=== PATIENT | female | born 1970 | race Caucasian/White ===

== ENCOUNTER 2025-01-31 22:58 | Emergency (ER) | payer OTHER, SELFPAY ==
[2025-01-31 22:59] VITALS: BP 126/71; PULSE 58; RESP 18; TEMP 36.3; O2SAT 99; BMI 26.2
--- NOTE | 2025-02-01 01:27 | EX.ED.DYSGE1 ---
HPI History of Present Illness Chief Complaint: Dizziness Informant: patient and spouse/S.O. Narrative Narrative: Patient is a 54-year-old female presenting with worsening vertigo, neck pain, and headache. Patient is accompanied by her who is supplementing history. - Reports vertigo and vision changes for 3 weeks. - Underwent Tracy maneuver yesterday by Dr. Nash, which provided temporary relief. - Experienced a migraine and emesis prior to the maneuver. - Symptoms worsened today after performing stretches with a lacrosse ball under her neck; now unable to ambulate without dizziness. - Describes current vertigo as more severe than previous episodes; associated with intense neck pain at the base of the skull. - Denies any known trauma or head injuries. - Reports bilateral ear discomfort and difficulty turning her head without inducing dizziness and fear of emesis. - Has been managing tight neck, trapezius, and shoulder muscles with heat, ice, and massages without relief. - attempted Tracy maneuver at home today without improvement (performed incorrectly after we discussed details). - Currently experiencing a headache; has a history of migraines. - Taking progesterone, magnesium, and L-theanine nightly. PFSH PFSH Medical History no medical history no medical history Home Medications ?Medication ?Instructions ?Recorded ?Last Taken ?Type diazepam 2 mg tablet (Valium) 2 mg PO TID PRN dizziness #10 tabs 02/01/25 Unknown Rx Allergy/AdvReac Type Severity Reaction Status Date / Time No Known Allergies Allergy Verified 01/31/25 22:59 Social History Smoking Status: Never smoker ROS ROS ED Constitutional Constitutional ED: Denies chills or fever(s) Eyes Eyes: Denies change in vision or diplopia ENT ENT ED: Reports ear pain bilateral and vertigo; Denies rhinorrhea, sore throat or tinnitus Cardiovascular Cardiovascular: Denies chest pain or palpitations Respiratory/Chest Respiratory/Chest: Denies cough or dyspnea Gastrointestinal Gastrointestinal: Reports nausea and vomiting; Denies abdominal pain or diarrhea Genitourinary Genitourinary ED: Denies dysuria or hematuria Musculoskeletal Musculoskeletal: Reports neck pain; Denies back pain Integumentary Denies abscess or rash Neurologic Neurologic: Reports abnormal gait, disequilibrium, headache(s) and vertigo; Denies abnormal speech, behavior changes, focal weakness, frequent falls, paresthesias or weakness Psychiatric Psychiatric: Denies anxiety or suicidal thoughts EXAM Physical Exam Const Vital Signs: 01/31/25 22:59 Temperature 97.4 F L Temperature Source Temporal Pulse Rate 58 L Respiratory Rate 18 Blood Pressure 126/71 H Blood Pressure Mean 89 Pulse Ox 99 Oxygen Delivery Method Room Air Positive well nourished and well developed General Appearance ED: well developed and NAD HEENT Reports TM's clear and moist mucous membranes normocephalic and atraumatic Tympanic Membrane ED: Yes TM's clear Eyes PERRL and EOMs intact bilaterally Eyes Narrative: No direction changing nystagmus. Negative skew test. Abnormal jolt test with brief catch-up saccade. Neck full ROM and supple Neck Narrative: Some tenderness throughout the bilateral posterior neck paraspinal musculature, including trapezius musculature, no tenderness in the sternocleidomastoid/carotid artery areas. No JVD. Resp normal respiratory effort and clear to auscultation bilaterally Cardio regular rate, regular rhythm and no murmurs GI non-tender and non-distended Auscultation: normoactive bowel sounds Palpation: soft Back/Spine no CVA tenderness General Back: other FROM Extremity normal to inspection General Extremety ED: Negative for edema, pulses abnormal or tenderness General Extremity: Negative for edema or pulses abnormal Neuro oriented x3, CN's II-XII intact bilaterally and no sensory deficits noted Neuro Narrative: Normal speech no aphasia or dysarthria. No dysmetria, normal [id number] and [id number] bilaterally. Sensorium / Orientation: awake and alert Motor Exam: strength 5/5 throughout Psych mental status grossly normal Skin no rashes or lesions noted and no wounds MDM MDM MDM Narrative Medical decision making narrative: Patient's HINTS exam as well as the history are consistent with a peripheral etiology of vertigo. She was interested in the Tracy maneuver. I offered her Zofran and oral Valium first, which were given. 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 By that time, she stated she felt much better with the medications and no longer wanted the maneuver. She preferred to leave with a prescription for Valium, which I was happy to provide. She is due to follow up with ENT after the weekend. We discussed the unlikelihood of a vascular event or stroke based on the history and exam. She does not have any neck pain or tenderness in the carotid areas, and her symptoms appear primarily posterior, which I believe are more related to her headache and history of migraines. Therefore, we discussed imaging and the reasons for it. I also offered her CT angiography of the head and neck to rule out a rare dissection, although I do not believe this is likely, as she experiences clear, severe reproduction of symptoms on the right side and no symptoms when the Tracy maneuver was performed on the left, according to the patient. She agrees with this assessment and declines the CT. She will follow up with otolaryngology as an outpatient. Discharge Plan Triage Chief Complaint: Dizziness ED Provider: Jose Juan Beltran Dx/Rx/DC Orders Clinical Impression: Benign paroxysmal positional vertigo of right ear Instructions: ED BPV Vertigo Prescriptions: New diazepam [Valium] 2 mg tablet 2 mg PO TID PRN (Reason: dizziness) Qty: 10 0RF Primary Care Provider: Lee Elaine Referrals: Dylan Nash MD [Med Staff - Active Staff, Ear Nose Throat (ENT)] - As soon as possible Print Language: Turkmen Disposition Disposition: Home, Self Care
[2025-02-01 01:32] VITALS: BP 99/57; PULSE 60; RESP 18; TEMP 36.4; O2SAT 98
== END 2025-02-01 01:43 | disposition home or self-care (01) ==
PROVIDERS: Emergency Provider Emergency Medicine; PCP Family Medicine; Visit Provider Emergency Medicine
DX: H81.11 Benign paroxysmal vertigo, right ear (principal)
CPT/HCPCS: 96374; 99282; A4216; J2405

== ENCOUNTER → 2025-02-18 | Outpatient (CLI) | payer OTHER, SELFPAY ==
--- OUTSIDE RECORDS SUMMARY | 2025-02-18 10:43 | XMS RPT_ITS | CCD ---
Author Organization [facility] Care Team Providers Care Tunnel Inspector Name Role Phone Maribel Jeffries Unavailable Unavailable Unavailable Maribel Jeffries DO Unavailable Unavailable Stephens DODaydayen Unavailable Unavailable Maribel Jeffries Unavailable Unavailable Maribel Jeffries DO Primary Care Provider Chele, Dr. Maribel Longoria Primary Care Unava ilable Stephens, Dr. Abiodun Jean Referring Unavail able Stephnes, Dr. Abiodun Jean Attending Unavail able Tiff, Ms. Larson Attending Unavailabl e Chele, Dr. Maribel Longoria Primary Care Unava ilshama Matthew, Ms. Larson Referring Unavailabl e Stephens DO, Abiodun N Unavailable PATRICK CONNELL DC Attending UnavailPATRICK Adame DC Primary Care UnavailPATRICK Adame DC Admitting UnavailMARIBEL Iyer Primary Care Unavailab le NASIVA POPEIHA Attending Unavailable Maribel Jeffries MD Primary Care Provider MARIBEL JEFFRIES Primary Care Unavailable MARIBEL JEFFRIES Primary Care Unavailable MARIBEL JEFFRIES Primary Care Unavailable STEPHENSABIODUN Referring Unavailable MARIBEL JEFFRIES Primary Care Unavailable Stephens DO, Abiodun Jacobs Primary Care Provider MARIBEL JEFFRIES Primary Care Unavailab rell NASSARANYARRICHARDA Referring Unavailable MARIBEL JEFFRIES Primary Care Unavailab le STEPHENSABIODUN Referring Unavailable STEPHENS, ABIODUN N Attending Unavailable MARIBEL JEFFRIES Primary Care Unavailable STEPHENS, ABIODUN N Attending Unavailable STEPHENS, ABIODUN N Primary Care Unavailable Devin SANTIAGO, Dr. Manzano Emergency Department Phys ician Chele SANTIAGO, Dr. Howard Primary Care Physician Maribel Jeffries Primary Care Unavailable Jose Juan Beltran Attending Unavailable Maribel Jeffries Primary Care Unavailable Dylan Nash Attending Unavailelfego e Dylan Nash Referring Unavailelfego giordano Medications Current Medications Medication Drug Class(es) Dates Sig (Normalized) Sig (Original) amoxicillin 875 mg / clavulanate 125 mg oral tablet (1 source) Penicillin-class Antibacterial Start: 05-02-2023 End: 05-12-2023 take 1 tablet by mouth twice daily amoxicillin-pot clavulanate (Augmentin) 875-125 mg tablet Indications: Acute non-recurrent frontal sinusitis Take 1 tablet (875 mg) by mouth 2 times a day for 10 days. 20 tablet 0 05/02/2023 05/12/2023 Active budesonide 3 mg delayed release oral capsule (3 sources) Corticosteroid Start: 10-30-2023 budesonide, enteric coated (ENTOCORT EC) 3 mg 24 hr capsule TAKE 3 CAPSULES BY MOUTH ONCE DAILY FOR 6 WEEKS THEN 2 CAPSULES ONCE DAILY FOR 2 WEEKS THEN 1 CAPSULE ONCE DAILY FOR 2 WEEKS THEN STOP. 10/30/2023 Active ciprofloxacin 500 mg oral tablet (11 sources) Quinolone Antimicrobial Start: 03-17-2024 End: 03-24-2024 take 1 tablet by mouth twice daily ciprofloxacin (Cipro) 500 mg tablet Indications: Acute UTI Take 1 tablet (500 mg) by mouth 2 times a day for 7 days. 14 tablet 03/17/2024 03/24/2024 Active Start: 12-04-2020 take 1 tablet by venancio twice daily Ciprofloxacin HCl - 500 MG Oral Tablet Take 1 tablet twice daily Quantity: 14 Refills: 0 Ordered: 17-Feb-2021 Castro Cummings MD Start : 04-Dec-2020 Active diazePAM 2 mg oral tablet (1 source) Benzodiazepine Start: 02-01-2025 take 1 tablet by mouth three times daily as needed for dizziness fluticasone propionate 0.05 mg/actuat metered dose nasal spray (3 sources) Corticosteroid Start: 05-24-2023 End: 08-16-2023 fluticasone (Flonase) 50 mcg/actuation nasal spray Indications: Acute non-recurrent frontal sinusitis PLEASE SEE ATTACHED FOR DETAILED DIRECTIONS 48 mL 3 05/24/2023 08/16/2023 Discontinued (Therapy completed) Start: 05-02-2023 take 2 spray(s) nasa l route once daily fluticasone (Flonase) 50 mcg/actuation nasal spray Indications: Acute non-recurrent frontal sinusitis Administer 2 sprays into each nostril once daily. Shake gently. Before first use, prime pump. After use, clean tip and replace cap. 16 g 1 05/02/2023 Active multivitamin with iron (MULT IVITAMINS WITH IRON ORAL) (3 sources) multivitamin wit h iron (MULTIVITAMINS WITH IRON ORAL) Active Completed/Discontinued Medications Medication Drug Class(es) Dates Sig (Normalized) Sig (Original) [id number] 200 actuat albuterol 0.09 mg/actuat metered dose inhaler (1 source) beta2-Adrenergic Agonist Start: 03-20-2019 take 2 puff(s) by inhalation every six hours ProAir HFA 108 (90 Base) MCG/ACT Inhalation Aerosol Solution USE 2 PUFFS EVERY 6 HOURS DIRECTED. Quantity: 1 Refills: 3 Maribel Jeffries DO Start : 20-Mar-2019 Active 8.5 GM Inhaler amoxicillin 875 mg oral tablet (1 source) Penicillin-class Antibacterial Start: 03-18-2019 take 1 tablet by mouth every twelve hours Amoxicillin 875 MG Oral Tablet TAKE 1 TABLET BY MOUTH EVERY 12 HOURS Quantity: 20 Refills: 0 Abiodun Stephens DO Start : 18-Mar-2019 Active azithromycin 250 mg oral tablet (1 source) Macrolide Antimicrobial Start: 03-13-2019 Azithromycin 250 MG Oral Tablet TAKE 2 TABLETS ON DAY 1 THEN TAKE 1 TABLET A DAY FOR 4 DAYS. Quantity: 1 Refills: 0 Abiodun Stephens DO Start : 13-Mar-2019 Active 6 Tablet Pack fluconazole 150 mg oral tablet (1 source) Azole Antifungal Start: 03-13-2019 Fluconazole 150 MG Oral Tablet TAKE 1 TABLET EVERY 3 DAYS WHILE ON ANTIBIOTICS Quantity: 4 Refills: 0 Abiodun Stephens DO Start : 13-Mar-2019 Active Problems Active Problems Problem Classification Problem Date Documented Da te Episodic/Chronic Conditions associated with dizziness or vertigo (3 sources) Benign paroxysmal positional vertigo; Translations: [Benign paroxysmal vertigo, right ear] Onset: 10-13-2025 10-05-2025 Episodic Disorders of lipid metabolism (8 sources) Hyperlipidemia; Translations: [Hyperlipidemia, unspecified] Onset: 08-16-2023 08-16-2023 Chronic Malaise and fatigue (2 sources) Other fatigue; Translations: [Other fatigue] Onset: 06-30-2024 Episodic Noninfectious gastroenteritis (3 sources) Collagenous colitis; Translations: [Collagenous colitis] Onset: 01-28-2024 01-29-2024 Chronic Other liver diseases (1 source) Elevated liver enzymes level; Translations: [Abnormal levels of other serum enzymes] 10-03-2022 Episodic Other liver diseases (4 sources) Abnormal levels of other serum enzymes; Translations: [Abnormal levels of other serum enzymes] Onset: 11-28-2022 Episodic Other screening for suspected conditions (not mental disorders or infectious disease) (20 sources) Patient encounter status; Translations: [Other specified vaccination] Onset: 08-18-2022 08-18-2022 Episodic Other screening for suspected conditions (not mental disorders or infectious disease) (20 sources) Mammography abnormal; Translations: [Abnormal mammogram, unspecified] Onset: 08-17-2022 08-17-2022 Episodic Other upper respiratory disease (19 sources) Allergic rhinitis; Translations: [Allergic rhinitis, cause unspecified] Onset: 08-17-2022 08-17-2022 Chronic Other upper respiratory disease (2 sources) Allergic rhinitis, unspecified; Translations: [Allergic rhinitis, unspecified] Onset: 08-17-2022 Chronic Residual codes; unclassified (7 sources) Menopause present; Translations: [Asymptomatic menopausal state] Onset: 08-16-2023 08-16-2023 Episodic Unclassified (1 source) Patient encounter status 06-30-2024 Past or Other Problems Problem Classification Problem Date Documented Da te Episodic/Chronic Abdominal pain (18 sources) Left lower quadrant pain; Translations: [Abdominal pain, left lower quadrant] Onset: 08-17-2022 Resolved: 08-18-2022 08-18-2022 Episodic Acute bronchitis (18 sources) Acute bronchitis; Translations: [Acute bronchitis] Onset: 08-17-2022 Resolved: 08-18-2022 08-18-2022 Episodic Calculus of urinary tract (11 sources) Kidney stone; Translations: [Calculus of kidney] Onset: 02-24-2021 08-18-2022 Episodic Genitourinary symptoms and ill-defined conditions (20 sources) Dysuria; Translations: [Dysuria] Onset: 08-17-2022 Resolved: 06-30-2024 08-17-2022 Episodic Mycoses (18 sources) Candidiasis of skin; Translations: [Candidiasis of skin and nails] Onset: 08-17-2022 Resolved: 08-18-2022 08-18-2022 Episodic Nonmalignant breast conditions (20 sources) Breast lump; Translations: [Lump or mass in breast] Onset: 08-17-2022 Resolved: 08-16-2023 08-18-2022 Episodic Other gastrointestinal disorders (7 sources) Diarrhea; Translations: [Diarrhea, unspecified] Onset: 06-04-2023 Resolved: 06-30-2024 06-04-2023 Episodic Other gastrointestinal disorders (2 sources) Diarrhea, unspecified; Translations: [Diarrhea, unspecified] Onset: 06-04-2023 Episodic Other injuries and conditions due to external causes (18 sources) Tampon in vagina; Translations: [Foreign body in vulva and vagina] Onset: 08-17-2022 Resolved: 08-18-2022 08-18-2022 Episodic Other lower respiratory disease (10 sources) H/O: respiratory disease; Translations: [Personal history of other diseases of respiratory system] Resolved: 10-10-2018 Episodic Comment on above: Added by Problem Barbara yaya Migration; 2013-01-19; Moved to [facility] Mar 26 2013 9:20PM; Other nervous system disorders (9 sources) Personal history of other diseases of the nervous system and sense organs; Translations: [History of conjunctivitis] Resolved: 10-10-2018 Episodic Other nervous system disorders (1 source) H/O: eye disorder; Translations: [Personal history of other disorders of nervous system and sense organs] Episodic Other upper respiratory infections (17 sources) Acute maxillary sinusitis; Translations: [Acute maxillary sinusitis] Onset: 05-02-2023 Resolved: 08-16-2023 05-02-2023 Episodic Residual codes; unclassified (10 sources) History of clinical finding in subject; Translations: [Personal history of other specified diseases] Resolved: 10-10-2018 Episodic Residual codes; unclassified (1 source) Family history of malignant neoplasm of breast; Translations: [Family history of malignant neoplasm of breast] Onset: 09-07-2022 Episodic Residual codes; unclassified (5 sources) Insomnia; Translations: [Insomnia, unspecified] Onset: 08-16-2023 08-16-2023 Episodic Residual codes; unclassified (4 sources) Asymptomatic menopausal state; Translations: [Asymptomatic menopausal state] Onset: 08-16-2023 Episodic Unclassified (6 sources) Onset: 05-02-2023 Resolved: 06-30-2024 05-02-2023 Urinary tract infections (20 sources) Cystitis; Translations: [Cystitis, unspecified] Onset: 08-17-2022 Resolved: 08-18-2022 08-18-2022 Episodic NEGATED: Highlighted row has not occurred!Residual codes; unclassified (7 sources) Disease Episodic Results Test Name Value Interpretation Reference Range Facility Emergency Department Summary on 02-01-2025 Emergency Department Summary [facility] Medical Records Department [address] [place] [id number] Emergency Department Summary 02/01/25 MR#: [id number] Acct: [id number] Name: ALBINO MARCH Rep #: [id number] : 1970 54 From: Jose Juan Beltran MD PCP: Dr. Maribel Jeffries MD Status:[facility] ER Location: ED [facility] History of Present Illness Chief Complaint: Dizziness Informant: patient and spouse/S.O. Narrative Narrative: Patient is a 54-year-old female presenting with worsening vertigo, neck pain, and headache. Patient is accompanied by her who is supplementing history. - Reports vertigo and vision changes for 3 weeks. - Underwent Tracy maneuver yesterday by Dr. Nash, which provided temporary relief. - Experienced a migraine and emesis prior to the maneuver. - Symptoms worsened today after performing stretches with a lacrosse ball under her neck; now unable to ambulate without dizziness. - Describes current vertigo as more severe than previous episodes; associated with intense neck pain at the base of the skull. - Denies any known trauma or head injuries. - Reports bilateral ear discomfort and difficulty turning her head without inducing dizziness and fear of emesis. - Has been managing tight neck, trapezius, and shoulder muscles with heat, ice, and massages without relief. - attempted Tracy maneuver at home today without improvement (performed incorrectly after we discussed details). - Currently experiencing a headache; has a history of migraines. - Taking progesterone, magnesium, and L-theanine nightly. PFSH PFSH Medical History no medical history no medical history Home Medications ???Medication ???Instructions ???Recorded ???Last Taken ???Type diazepam 2 mg tablet (Valium) 2 mg PO TID PRN dizziness #10 tabs 02/01/25 Unknown Rx Allergy/AdvReac Type Severity Reaction Status Date / Time No Known Allergies Allergy Verified 01/31/25 22:59 Social History Smoking Status: Never smoker ROS ROS ED Constitutional Constitutional ED: Denies chills or fever(s) Eyes Eyes: Denies change in vision or diplopia ENT ENT ED: Reports ear pain bilateral and vertigo; Denies rhinorrhea, sore throat or tinnitus Cardiovascular Cardiovascular: Denies chest pain or palpitations Respiratory/Chest Respiratory/Chest: Denies cough or dyspnea Gastrointestinal Gastrointestinal: Reports nausea and vomiting; Denies abdominal pain or diarrhea Genitourinary Genitourinary ED: Denies dysuria or hematuria Musculoskeletal Musculoskeletal: Reports neck pain; Denies back pain Integumentary Denies abscess or rash Neurologic Neurologic: Reports abnormal gait, disequilibrium, headache(s) and vertigo; Denies abnormal speech, behavior changes, focal weakness, frequent falls, paresthesias or weakness Psychiatric Psychiatric: Denies anxiety or suicidal thoughts EXAM Physical Exam Const Vital Signs: 01/31/25 22:59 Temperature 97.4 F L Temperature Source Temporal Pulse Rate 58 L Respiratory Rate 18 Blood Pressure 126/71 H Blood Pressure Mean 89 Pulse Ox 99 Oxygen Delivery Method Room Air Positive well nourished and well developed General Appearance ED: well developed and NAD HEENT Reports TM's clear and moist mucous membranes normocephalic and atraumatic Tympanic Membrane ED: Yes TM's clear Eyes PERRL and EOMs intact bilaterally Eyes Narrative: No direction changing nystagmus. Negative skew test. Abnormal jolt test with brief catch-up saccade. Neck full ROM and supple Neck Narrative: Some tenderness throughout the bilateral posterior neck paraspinal musculature, including trapezius musculature, no tenderness in the sternocleidomastoid/carot id artery areas. No JVD. Resp normal respiratory effort and clear to auscultation bilaterally Cardio regular rate, regular rhythm and no murmurs GI non-tender and non-distended Auscultation: normoactive bowel sounds Palpation: soft Back/Spine no CVA tenderness General Back: other FROM Extremity normal to inspection General Extremety ED: Negative for edema, pulses abnormal or tenderness General Extremity: Negative for edema or pulses abnormal Neuro oriented x3, CN's II-XII intact bilaterally and no sensory deficits noted Neuro Narrative: Normal speech no aphasia or dysarthria. No dysmetria, normal vyffqh-lm-keve and vujx-lm-ywxy bilaterally. Sensorium / Orientation: awake and alert Motor Exam: strength 5/5 throughout Psych mental status grossly normal Skin no rashes or lesions noted and no wounds MDM MDM MDM Narrative Medical decision making narrative: Patient's HINTS exam as well as the history are consistent with a peripheral etiology of vertigo. She was interested in the Tracy maneuver. I (more content not included)... Normal [facility] CBC (INCLUDES DIFF/PLT)on Basophils (Bld) [#/Vol] 0.042 10*3/uL Normal 0-200 [facility] Comment on above: Performed By: #### 7 600, 6399, 91046, 67579, 15753 #### [facility] [place] [address] [employer]er: Emerson Aguilar MD Basophils/100 WBC (Bld) 1.0 % Normal [facility] Comment on above: Performed By: #### 7 600, 6399, 76418, 61127, 97501 #### [facility] [address], [address] [place] [address] [employer]: Emerson Aguilar MD Eosinophils (Bld) [#/Vol] 0.101 10*3/uL Normal 15-500 [facility] Comment on above: Performed By: #### 7 600, 6399, 37210, 18680, 00981 #### [facility] [address], [address] [place] [address] [employer]: Emerson Aguilar MD Eosinophils/100 WBC (Bld) 2.4 % Normal [facility] Comment on above: Performed By: #### 7 600, 6399, 55901, 77167, #### [facility] of [place] [address] [employer]: Emerson Aguilar MD Erythrocyte distribution width (RBC) [Ratio] 11.8 % Normal 11.0-15.0 [facility] Comment on above: Performed By: #### 7 600, 6399, 59267, 81987, #### [facility] of [address], [address] [place] [address] [employer]: Emerson Aguilar MD Hematocrit (Bld) [Volume fraction] 42.6 % Normal 35.0-45.0 [facility] Comment on above: Performed By: #### 7 600, 6399, 77012, 90239, #### [facility] [place] [address] [employer]: Emerson Aguilar MD Hemoglobin (Bld) [Mass/Vol] 13.8 g/dL Normal 11.7-15.5 [facility] Comment on above: Performed By: #### 7 600, 6399, 05203, 71493, #### [facility] [place] [address] [employer]: Emerson Aguilar MD Lymphocytes (Bld) [#/Vol] 1.487 10*3/uL Normal 850-3900 [facility] Comment on above: Performed By: #### 7 600, 6399, 76772, 44225, #### [facility] [place] [address] [employer]: Emerson Aguilar MD Lymphocytes/100 WBC (Bld) 35.4 % Normal [facility] Comment on above: Performed By: #### 7 600, 6399, 89090, 24631, 52408 #### [facility] [place] [address] [employer]: Emerson Aguilar MD MCH (RBC) [Entitic mass] 30.6 pg Normal 27.0-33.0 [facility] Comment on above: Performed By: #### 7 600, 63, 31880, 33470, #### [facility] [place] [address] [employer]: Emerson Aguilar MD MCHC (RBC) [Mass/Vol] 32.4 g/dL Normal 32.0-36.0 [facility] Comment on above: Result Comment: For adults, a slight decrease in the calculated MCHC value (in the range of 30 to 32 g/dL) is most likely not clinically significant; however, it should be interpreted with caution in correlation with other red cell parameters and the patient's clinical condition. Performed By: #### 7 600, 63, 10836, , #### [facility] [place] [address] [employer]: Emerson Aguilar MD MCV (RBC) [Entitic vol] 94.5 fL Normal 80.0-100.0 [facility] Comment on above: Performed By: #### 7 600, 63, 50694, , #### [facility] [place] [address] [employer]: Emerson Aguilar MD Monocytes (Bld) [#/Vol] 0.382 10*3/uL Normal 200-950 [facility] Comment on above: Performed By: #### 7 600, 63, 96860, , #### [facility] of [place] [address] [employer]: Emerson Aguilar MD Monocytes/100 WBC (Bld) 9.1 % Normal [facility] Comment on above: Performed By: #### 7 600, 63, 86264, 55523, #### [facility] [place] [address] [employer]: Emerson Aguilar MD Neutrophils (Bld) [#/Vol] 2.188 10*3/uL Normal 4106-9254 [facility] Comment on above: Performed By: #### 7 600, 6399, 02234, 24411, 65325 #### [facility] [place] [address] [employer]: Emerson Aguilar MD Neutrophils/100 WBC (Bld) 52.1 % Normal [facility] Comment on above: Performed By: #### 7 600, 6399, 84625, 98652, 84183 #### [facility] of [address], [address] [place] [address] [employer]: Emerson Aguilar MD Platelet mean volume (Bld) [Entitic vol] 10.9 fL Normal 7.5-12.5 [facility] Comment on above: Performed By: #### 7 600, 6399, 60376, 89630, 15293 #### [facility] [place] [address] [employer]: Emerson Aguilar MD Platelets (Bld) [#/Vol] 246 10*3/uL Normal 140-400 [facility] Comment on above: Performed By: #### 7 600, 6399, 50048, 76377, 45100 #### [facility] [place] [address] [employer]: Emerson Aguilar MD RBC (Bld) [#/Vol] 4.51 10*6/uL Normal 3.80-5.10 [facility] Comment on above: Performed By: #### 7 600, 6399, 52508, 58324, 24332 #### [facility] of [address], [address] [place], [place] [id number] [employer]: Emerson Aguilar MD WBC (Bld) [#/Vol] 4.2 10*3/uL Normal 3.8-10.8 [facility] Comment on above: Performed By: #### 7 600, 6399, 39197, 37452, 69068 #### [facility] of [place] [id number] [employer]: Emerson Aguilar MD COMPREHENSIVE METABOLIC PANE L W/ANION GAPon 08-13-2024 Albumin [Mass/Vol] 4.5 g/dL Normal 3.6-5.1 [facility] Comment on above: Performed By: #### 7 600, 6399, 36837, 14114, 19027 #### [facility] of [place] [address] [employer]: Emerson Aguilar MD ALP [Catalytic activity/Vol] 43 U/L Normal 37-153 [facility] Comment on above: Performed By: #### 7 600, 6399, 88880, 79247, 94330 #### [facility] [place] [address] [employer]: Emerson Aguilar MD ALT [Catalytic activity/Vol] 20 U/L Normal 6-29 [facility] Comment on above: Performed By: #### 7 600, 6399, 09614, 11160, #### [facility] [place] [address] [employer]: Emerson Aguilar MD AST [Catalytic activity/Vol] 23 U/L Normal 10-35 [facility] Comment on above: Performed By: #### 7 600, 6399, 16887, 89805, 52767 #### [facility] [place] [address] [employer]: Emerson Aguilar MD Bilirubin [Mass/Vol] 0.7 mg/dL Normal 0.2-1.2 [facility] Comment on above: Performed By: #### 7 600, 6399, 05164, 47309, 40632 #### [facility] [place] [address] [employer]: Emerson Aguilar MD Calcium [Mass/Vol] 9.3 mg/dL Normal 8.6-10.4 [facility] Comment on above: Performed By: #### 7 600, 6399, 22889, 39283, 96902 #### [facility] [place] [address] [employer]: Emerson Aguilar MD Chloride [Moles/Vol] 105 mmol/L Normal 98-110 [facility] Comment on above: Performed By: #### 7 600, 6399, 13488, 69271, 27299 #### [facility] [place] [address] [employer]: Emerson Aguilar MD CO2 [Moles/Vol] 27 mmol/L Normal 20-32 [facility] Comment on above: Performed By: #### 7 600, 6399, 16611, 79517, 35404 #### [facility] [place] [address] [employer]: Emerson Aguilar MD Creatinine [Mass/Vol] 0.55 mg/dL Normal 0.50-1.03 [facility] Comment on above: Performed By: #### 7 600, 6399, 17868, 74218, 94404 #### [facility] [place] [address] [employer]: Emerson Aguilar MD ELECTROLYTE BALANCE 7 mmol/L (calc) Normal 7-17 [facility] Comment on above: Performed By: #### 7 600, 6399, 39516, 72756, 17367 #### [facility] [place] [address] [employer]: Emerson Aguilar MD GFR/1.73 sq M.predicted among non-blacks MDRD (S/P/Bld) [Vol rate/Area] 110 mL/min/{1.73_m2} Normal > OR = 60 [facility] Comment on above: Performed By: #### 7 600, 6399, 47468, 87976, 27427 #### [facility] [place] [address] [employer]: Emerson Aguilar MD Glucose [Mass/Vol] 84 mg/dL Normal 65-99 [facility] Comment on above: Result Comment: Fasting reference interval Performed By: #### 7 600, 6399, 71419, 20928, #### [facility] [place] [address] [employer]: Emerson Aguilar MD Potassium [Moles/Vol] 4.1 mmol/L Normal 3.5-5.3 [facility] Comment on above: Performed By: #### 7 600, 6399, 81196, 01171, #### [facility] [place] [address] [employer]: Emerson Aguilar MD Protein [Mass/Vol] 6.8 g/dL Normal 6.1-8.1 [facility] Comment on above: Performed By: #### 7 600, 6399, 99235, 74415, 32904 #### [facility] [place] [address] [employer]: Emerson Aguilar MD Sodium [Moles/Vol] 139 mmol/L Normal 135-146 [facility] Comment on above: Performed By: #### 7 600, 6399, 81621, 99121, #### [facility] [place] [address] [employer]: Emerson Aguilar MD Urea nitrogen [Mass/Vol] 18 mg/dL Normal 7-25 [facility] Comment on above: Performed By: #### 7 600, 6399, 73855, 20233, #### [facility] [place] [address] [employer]: Emerson Aguilar MD LIPID PANEL, [facility] 07-29 Cholesterol [Mass/Vol] 218 mg/dL High <200 [facility] Comment on above: Order Comment: FASTI NG:YES FASTING: YES Performed By: #### 7 600, 6399, 94271, 75298, 27322 #### [facility] [facility] [address] [employer]: Emerson Aguilar MD Cholesterol in HDL [Mass/Vol] 95 mg/dL Normal > OR = 50 [facility] Comment on above: Order Comment: FASTI NG:YES FASTING: YES Performed By: #### 7 600, 6399, 97844, 98330, 41291 #### [facility] [address], [address] [place] [address] [employer]: Emerson Aguilar MD Cholesterol in LDL [Mass/Vol] 112 mg/dL High [facility] Comment on above: Order Comment: FASTI NG:YES FASTING: YES Result Comment: Refe rence range: <100 Desirable range <100 mg/dL for primary prevention; <70 mg/dL for patients with CHD or diabetic patients with > or = 2 CHD risk factors. LDL-C is now calculated using the Gladys calculation, which is a validated novel method providing better accuracy than the Friedewald equation in the estimation of LDL-C. Isidoro MCGEE et al. TUSHAR. 2013;310(19): 5842-7969 (http://education.[employer]/faq/KUK610) Performed By: #### 7 600, 6399, 75665, 44212, 77471 #### [facility] [address], [address] [place] [address] [employer]: Emerson Aguilar MD Cholesterol.total/ Cholesterol in HDL [Mass ratio] 2.3 {ratio} Normal <5.0 [facility] Comment on above: Order Comment: FASTI NG:YES FASTING: YES Performed By: #### 7 600, 6399, 64117, 36834, 08648 #### [facility] [address], [address] [place] [address] [employer]: Emerson Aguilar MD NON HDL CHOLESTEROL 123 mg/dL (calc) Normal <130 [facility] Comment on above: Order Comment: FASTI NG:YES FASTING: YES Result Comment: For patients with diabetes plus 1 major ASCVD risk factor, treating to a non-HDL-C goal of <100 mg/dL (LDL-C of <70 mg/dL) is considered a therapeutic option. Performed By: #### 7 600, 6399, 16000, 24936, 08604 #### [facility] [address], [address] [place] [address] [employer]: Emerson Aguilar MD Triglyceride [Mass/Vol] 38 mg/dL Normal <150 [facility] Comment on above: Order Comment: FASTI NG:YES FASTING: YES Performed By: #### 7 600, 6399, 04262, 91462, 38008 #### [facility] [address], [address] [place], [place] [address] [employer]: Emerson Aguilar MD TSH W/REFLEX TO FT4on 2024 TSH W/REFLEX TO FT4 1.56 mIU/L Normal [facility] Comment on above: Result Comment: Refe rence Range > or = 20 Years 0.40-4.50 Ranges First trimester 0.26-2.66 Second trimester 0.55-2.73 Third trimester 0.43-2.91 Performed By: #### 7 600, 6399, 93249, 84090, 73956 #### [facility] [address], [address] [place] [address] [employer]: Emerson Aguilar MD VITAMIN D,25-OH,TOTAL,IAon 0 08-13-2024 VITAMIN D,25-OH,TOTAL,IA 71 ng/mL Normal 30-100 [facility] Comment on above: Result Comment: Izzy min D Status 25-OH Vitamin D: Deficiency: <20 ng/mL Insufficiency: 20 - 29 ng/mL Optimal: > or = 30 ng/mL For 25-OH Vitamin D testing on patients on D2-supplementation and patients for whom quantitation of D2 and D3 fractions is required, the QuestAssureD(TM) 25-OH VIT D, (D2,D3), LC/MS/MS is recommended: order code 84839 (patients >2yrs). See Note 1 Note 1 For additional information, please refer to http://education.[employer]/faq/CID928 (This link is being provided for informational/ educational purposes only.) Performed By: #### 7 600, 6399, 25684, 31268, 36570 #### [facility] [address], [address] [place], [place] [id number] [employer]: Emerson Aguilar MD MALLIKA SCREENING W TOMOon 08-05 MALLIKA SCREENING W [place] * * *Final Report* * * DATE OF EXAM: Aug 05 2024 10:32AM AWW [id number] - MALLIKA SCREENING W [place] / PROCEDURE REASON: screening * * * * Physician Interpretation * * * * [facility] [address] [place] [address] [place] [address] #[phone] - MALLIKA SCREENING W [place] HISTORY: 54 year-old patient seen for screening. Patient is asymptomatic in both breasts. Patient states no personal history of breast cancer. The patient has a family history of breast cancer. COMPARISON STUDIES: The present examination has been compared to prior imaging studies dated 11/07/2018 (mammogram), 11/07/2018 (ultrasound), 11/08/2018 (mammogram), 09/07/2022 (ultrasound) and 09/07/2022 (mammogram). MAMMOGRAM TECHNIQUE: The study was acquired using full field digital technology and interpreted from soft copy. Digital Breast Tomosynthesis (DBT) images were obtained and used to assist in the interpretation of this examination. MAMMOGRAM FINDINGS: The breasts are extremely dense, which lowers the sensitivity of mammography. No suspicious masses, calcifications or other abnormalities are seen in either breast. There are no significant interval changes. IMPRESSION: There is no mammographic evidence of malignancy in either breast. Routine screening mammogram is recommended. Annual mammogram will be due in 1 year. BI-RADS Category 1: Negative RISK: Based on the Tyrer-Cuzick (TC) risk assessment model, this patient has a 13.7% lifetime risk of developing breast cancer, meaning they are at average risk for developing breast cancer. However, this is only an estimate based on available history provided on the patient's questionnaire. We encourage all patients to talk with their providers about these results, further recommendations for managing breast health, and appropriate supplemental screening options if the patient has dense breast tissue. Interpreting Radiologist: Marva Martinez M.D. Electronically signed on: 08/06/2024 Pan [place]: [place] Transcribe Date/Time: Aug 05 2024 10:30A Dictated by : MARVA MARTINEZ MD This examination was interpreted and the report reviewed and electronically signed by: MARVA MARTINEZ MD on Aug 06 2024 9:01PM EST [id number] Normal [facility] Bacteria identifiedon 2023 Bacteria identified Cx Nom (U) Test: Urine Culture Specimen Source: Clean Catch/Voided Specimen Type: Urine Specimen Date: 03/17/2024 1039 Result Date: 03/19/2024 0759 Result Status: Final result Abnormal: No Resulting Lab: [facility] [id number] [place] [address] CULTURE No growth Normal [facility] Comment on above: Performed By: #### 6 30-4 #### SARA Osborne ([id number]) [facility] ([facility]) [address] [place] [address] CT ABDOMEN PELVIS WO IV CONT [facility] 03-17-2024 CT ABDOMEN PELVIS WO IV CONTRAST Interpreted By: Ciro Marin, STUDY: CT ABDOMEN PELVIS WO IV CONTRAST; 03/17/2024 11:12 am INDICATION: Signs/Symptoms:hematuria, history of kidney stones. COMPARISON: 02/23/2021 ACCESSION NUMBER(S): [id number] ORDERING CLINICIAN: ABIODUN STEPHENS TECHNIQUE: CT of the abdomen and pelvis was performed. Contiguous axial images were obtained at 3 mm slice thickness through the abdomen and pelvis. Coronal and sagittal reconstructions at 3 mm slice thickness were performed. Intravenous or oral contrast was not administered. FINDINGS: LOWER CHEST: The visualized lung bases are unremarkable. ABDOMEN: LIVER: The hepatic parenchyma is homogeneous without evidence of focal liver lesions.The hepatic size is normal. SPLEEN: The spleen is normal in size and homogeneous. ADRENAL GLANDS: Bilateral adrenal glands appear normal. KIDNEYS AND URETERS: The renal cortices are unremarkable and the renal sizes within normal limits. There is a punctate nonobstructing right intrarenal calculus at the midpole, similar to the previous exam. There is a punctate radiodensity at the left pelvis best seen on image 115 of series 201. As there is not left pelvocaliectasis this is probably due to development of a phlebolith. However as this was not evident previously, and as the ureters are not well identified due to a paucity of intra-abdominal fat and overlying bowel loops, the possibility of a a nonobstructing or early distal left ureteral calculus is not excluded. If differentiation or further evaluation is needed a CT urogram retrograde pyelography would be recommended. No identified right urinary tract dilatation or other radiodense calculi. PANCREAS: The pancreas appears unremarkable, there is no ductal dilatation or masses. GALLBLADDER: Decompressed, otherwise grossly unremarkable without wall thickening, pericholecystic fluid or radiodense calculi. BILE DUCTS: There is no biliary dilatation or filling defects. VESSELS: The aorta and IVC are within normal limits. PERITONEUM AND RETROPERITONEUM: No ascites or free air, no fluid collection. The retroperitoneum appears unremarkable, and without significant adenopathy. No enlarged mesenteric lymph nodes. BOWEL: The bowel is unremarkable, without significant dilatation or mucosal edema. PELVIS: BLADDER: The urinary bladder contour is smooth. REPRODUCTIVE ORGANS: No pelvic masses. BONE, ABDOMINAL WALL AND OTHER FINDINGS: No suspicious osseous lesions are identified. The abdominal wall soft tissues appear normal. IMPRESSION: 1. Punctate nonobstructing right intrarenal calculus, similar to the prior exam. 2. Interval development of a punctate calcification at the left pelvis, probably a phlebolith. However, given limitations a distal early or nonobstructing left ureteral calculus is not excluded. MACRO: 1. None Signed by: Ciro Marin 03/17/2024 11:44 AM Dictation workstation: [id number] [facility] CT Abdomen WO contraston 1. Punctate nonobstructing right intrarenal calculus, similar to the prior exam. 2. Interval development of a punctate calcification at the left pelvis, probably a phlebolith. However, given limitations a distal early or nonobstructing left ureteral calculus is not excluded. MACRO: 1. None Signed by: Ciro Marin 03/17/2024 11:44 AM Dictation workstation: [id number] [facility] Interpreted By: Ciro Bhatti, STUDY: CT ABDOMEN PELVIS WO IV CONTRAST; 03/17/2024 11:12 am INDICATION: Signs/Symptoms:hematuria, history of kidney stones. COMPARISON: 02/23/2021 ACCESSION NUMBER(S): [id number] ORDERING CLINICIAN: ABIODUN STEPHENS TECHNIQUE: CT of the abdomen and pelvis was performed. Contiguous axial images were obtained at 3 mm slice thickness through the abdomen and pelvis. Coronal and sagittal reconstructions at 3 mm slice thickness were performed. Intravenous or oral contrast was not administered. FINDINGS: LOWER CHEST: The visualized lung bases are unremarkable. ABDOMEN: LIVER: The hepatic parenchyma is homogeneous without evidence of focal liver lesions.The hepatic size is normal. SPLEEN: The spleen is normal in size and homogeneous. ADRENAL GLANDS: Bilateral adrenal glands appear normal. KIDNEYS AND URETERS: The renal cortices are unremarkable and the renal sizes within normal limits. There is a punctate nonobstructing right intrarenal calculus at the midpole, similar to the previous exam. There is a punctate radiodensity at the left pelvis best seen on image 115 of series 201. As there is not left pelvocaliectasis this is probably due to development of a phlebolith. However as this was not evident previously, and as the ureters are not well identified due to a paucity of intra-abdominal fat and overlying bowel loops, the possibility of a a nonobstructing or early distal left ureteral calculus is not excluded. If differentiation or further evaluation is needed a CT urogram retrograde pyelography would be recommended. No identified right urinary tract dilatation or other radiodense calculi. PANCREAS: The pancreas appears unremarkable, there is no ductal dilatation or masses. GALLBLADDER: Decompressed, otherwise grossly unremarkable without wall thickening, pericholecystic fluid or radiodense calculi. BILE DUCTS: There is no biliary dilatation or filling defects. VESSELS: The aorta and IVC are within normal limits. PERITONEUM AND RETROPERITONEUM: No ascites or free air, no fluid collection. The retroperitoneum appears unremarkable, and without significant adenopathy. No enlarged mesenteric lymph nodes. BOWEL: The bowel is unremarkable, without significant dilatation or mucosal edema. PELVIS: BLADDER: The urinary bladder contour is smooth. REPRODUCTIVE ORGANS: No pelvic masses. BONE, ABDOMINAL WALL AND OTHER FINDINGS: No suspicious osseous lesions are identified. The abdominal wall soft tissues appear normal. [facility] Ciro Marin MD - 03/17/2024 Interpreted By: Ciro Marin, STUDY: CT ABDOMEN PELVIS WO IV CONTRAST; 03/17/2024 11:12 am INDICATION: Signs/Symptoms:hematuria, history of kidney stones. COMPARISON: 02/23/2021 ACCESSION NUMBER(S): [id number] ORDERING CLINICIAN: ABIODUN STEPHENS TECHNIQUE: CT of the abdomen and pelvis was performed. Contiguous axial images were obtained at 3 mm slice thickness through the abdomen and pelvis. Coronal and sagittal reconstructions at 3 mm slice thickness were performed. Intravenous or oral contrast was not administered. FINDINGS: LOWER CHEST: The visualized lung bases are unremarkable. ABDOMEN: LIVER: The hepatic parenchyma is homogeneous without evidence of focal liver lesions.The hepatic size is normal. SPLEEN: The spleen is normal in size and homogeneous. ADRENAL GLANDS: Bilateral adrenal glands appear normal. KIDNEYS AND URETERS: The renal cortices are unremarkable and the renal sizes within normal limits. There is a punctate nonobstructing right intrarenal calculus at the midpole, similar to the previous exam. There is a punctate radiodensity at the left pelvis best seen on image 115 of series 201. As there is not left pelvocaliectasis this is probably due to development of a phlebolith. However as this was not evident previously, and as the ureters are not well identified due to a paucity of intra-abdominal fat and overlying bowel loops, the possibility of a a nonobstructing or early distal left ureteral calculus is not excluded. If differentiation or further evaluation is needed a CT urogram retrograde pyelography would be recommended. No identified right urinary tract dilatation or other radiodense calculi. PANCREAS: The pancreas appears unremarkable, there is no ductal dilatation or masses. GALLBLADDER: Decompressed, otherwise grossly unremarkable without wall thickening, pericholecystic fluid or radiodense calculi. BILE DUCTS: There is no biliary dilatation or filling defects. VESSELS: The aorta and IVC are within normal limits. PERITONEUM AND RETROPERITONEUM: No ascites or free air, no fluid collection. The retroperitoneum appears unremarkable, and without significant adenopathy. No enlarged mesenteric lymph nodes. BOWEL: The bowel is unremarkable, without significant dilatation or mucosal edema. PELVIS: BLADDER: The urinary bladder contour is smooth. REPRODUCTIVE ORGANS: No pelvic masses. BONE, ABDOMINAL WALL AND OTHER FINDINGS: No suspicious osseous lesions are identified. The abdominal wall soft tissues appear normal. IMPRESSION: 1. Punctate nonobstructing right intrarenal calculus, similar to the prior exam. 2. Interval development of a punctate calcification at the left pelvis, probably a phlebolith. However, given limitations a distal early or nonobstructing left ureteral calculus is not excluded. MACRO: 1. None Signed by: Ciro Marin 03/17/2024 11:44 AM Dictation workstation: [id number] [facility] Work Phone: Radiology Study observation (narrative) [facility] Work Phone: CT Abdomen WO contrastOrdere d By: Ciro Marin on 03-17-2024 [facility] Work Phone: Follitropinon 03-17-2024 Follitropin Qn 103.9 IU/L Normal [facility] Comment on above: Result Comment: FSH Ref Values Follicular 2.0-12.0 IU/L Mid-Cycle 12.0-25.0 IU/L Luteal Phase 2.0-12.0 IU/L Menopause 30.0-150.0 IU/L Pre-puberty 50% Adult IU/L Adult Male 2.0-10.0 IU/L Infants 0.0-1.0 IU/L Performed By: #### 2 4323-8 #### SARA Osborne ([id number]) [facility] ([facility]) [address] [place] [address] Lutropinon 03-17-2024 Lutropin Qn 53.5 IU/L [facility] Comment on above: Result Comment: LH R eference Values Follicular Phase 1.9-12.5 IU/L Mid-Cycle 8.7-76.3 IU/L Luteal Phase 0.5-16.9 IU/L Post Menopause 5.0-55.2 IU/L Children 0- 6.0 IU/L Adult Male 18-70 years 1.5- 9.3 IU/L Adult Male >70 years 3.1-34.6 IU/L Performed By: #### 2 4323-8 #### SARA Osborne ([id number]) [facility] ([facility]) [address] [place] [address] POCT UA Automated manually r esultedon 03-17-2024 Glucose Test strip (U) [Mass/Vol] Negative NEGATIVE mg/dl [facility] Work Phone: Comment on above: 3 rbc/hpf urine cult ure sent Hemoglobin Ql (U) TRACE-Intact Abnormal NEGATIVE [facility] Work Phone: Interpretation and review of laboratory results Abnormal [facility] Work Phone: Leukocyte esterase Test strip Ql (U) Negative NEGATIVE [facility] Work Phone: [phone] Nitrite Ql (U) Negative NEGATIVE [facility] Work Phone: [phone] pH (U) 7.0 [pH] No Reference Range Established [facility] Work Phone: [phone] POC Bilirubin, Urine Negative NEGATIVE [facility] Work Phone: [phone] POC Ketones, Urine Negative NEGATIVE mg/dl [facility] Work Phone: POC Protein, Urine Negative NEGATIVE, 30 (1+) mg/dl [facility] Work Phone: [phone] POC Specific [place], Urine 1.020 1.005 - 1.035 [facility] Work Phone: POC Urobilinogen, Urine 0.2 0.2, 1.0 EU/DL [facility] Work Phone: [facility] Work Phone: No Panel Informationon 01-31 [facility] C. difficile toxin genes DEYVI +probe Ql (Stl)on 01-29-2024 Interpretation and review of laboratory results Normal [facility] Calprotectin (Stl) [Mass/Mas s]on 01-29-2024 CALPROTECTIN, FECAL INTERP Normal Normal [facility] Comment on above: Interpretation: <50.0 ug/g: Normal 50.0 ug/g - 120.0 ug/g: Borderline elevated. Re-evaluation in 4-6 weeks is recommended if clinically indicated. >120.0 ug/g: Elevated CALPROTECTIN, FECAL QUANTITATIVE 45.0 ug/g NINF - 50 ug/g [facility] Interpretation and review of laboratory results Normal [facility] G. lamblia+Cryptosporidium s p Ag IA Ql (Stl)Ordered By: Antonio Gonsalez on 01-29-2024 Cryptosporidium sp Ag Ql (Stl) Negative Negative [facility] G. lamblia Ag Ql (Stl) Negative Negative [facility] Interpretation and review of laboratory results Normal [facility] A single negative te st result does not rule out a parasitic infection. Due to intermittent shedding of parasites, it is recommended that three specimens collected over a 7 day period are submitted to improve detection sensitivity. [facility] Gastrointestinal pathogens i dentified DEYVI+probe Nom (Stl)Ordered By: Cary Cote on 01-29-2024 Campylobacter sp DNA DEYVI+probe Nom (Unsp spec) Not detected Not Detected [facility] Interpretation and review of laboratory results Normal [facility] Salmonella sp DNA DEYVI+probe Ql (Unsp spec) Not detected Not Detected [facility] Shiga toxin stx gene DEYVI+probe Nom (Unsp spec) Not detected Not Detected [facility] Shigella sp DNA DEYVI+probe Ql (Unsp spec) Not detected Not Detected [facility] Laboratory - Microbiology an d Antimicrobial susceptibilityon 01-29-2024 C. difficile toxin genes DEYVI+probe Ql (Stl) Negative Negative for C. difficile toxin by PCR [facility] 25(OH)D3 SerPl-mCncon 2023 25-hydroxyvitamin D3 [Mass/Vol] 63.7 ng/mL Normal >=30.0 [facility] Comment on above: Order Comment: Pepito ontiveros Type: BLOOD SPECIMEN Ordering Facility: [facility] Address: [address] [place] [address] Result Comment: Clas sification of 25 [place] Vitamin D status: Deficiency: <= 20.0 ng/ml. Insufficiency: 21.0-29.0 ng/ml. Sufficiency: >= 30.0 ng/ml. Performed By: #### 1 989-3 #### [facility] CLIA [id number] [address] [place] [address] [place] 25-hydroxyvitamin D3 [Mass/V ol]on 01-28-2024 Interpretation and review of laboratory results Normal [facility] C diff Tox gens Stl Ql DEYVI+p robeon 01-28-2024 C. difficile toxin genes DEYVI+probe Ql (Stl) Negative Normal Negative for C. difficile toxin by PCR [facility] Comment on above: Order Comment: Speci men Type: STOOL SPECIMEN Ordering Facility: [facility] Address: [address] [place] [address] Performed By: #### 5 4067-4, 90479-7, 43230-6 #### [facility] CLIA [id number] [address] [place] [address] [place] [address] [place] CBC W Auto Differential pane l (Bld)on 01-28-2024 Basophils (Bld) [#/Vol] 0.07 10*3/uL [facility] Basophils/100 WBC (Bld) 0.8 % [facility] Differential cell count method Nom (Bld) Auto [facility] Eosinophils (Bld) [#/Vol] 0.16 10*3/uL [facility] Eosinophils/100 WBC (Bld) 1.8 % [facility] Erythrocyte distribution width (RBC) [Ratio] 13.0 % 11.5 - 15.0 % [facility] Hematocrit (Bld) [Volume fraction] 42.4 % 36.0 - 46.0 % [facility] Hemoglobin (Bld) [Mass/Vol] 13.4 g/dL 11.5 - 15.5 g/dL [facility] Immature granulocytes (Bld) [#/Vol] BANNERF [facility] Immature granulocytes/100 WBC (Bld) 0.2 % [facility] Lymphocytes (Bld) [#/Vol] 1.57 10*3/uL [facility] Lymphocytes/100 WBC (Bld) 17.7 % [facility] MCH (RBC) [Entitic mass] 30.8 pg 26.0 - 34.[address] [facility] MCHC (RBC) [Mass/Vol] 31.6 g/dL 30.5 - 36.0 g/dL [facility] MCV (RBC) [Entitic vol] 97.5 fL 80.0 - 100.[address] [facility] Monocytes (Bld) [#/Vol] 0.74 10*3/uL [facility] Monocytes/100 WBC (Bld) 8.3 % [facility] Neutrophils (Bld) [#/Vol] 6.33 10*3/uL [facility] Neutrophils/100 WBC (Bld) 71.2 % [facility] Nucleated RBC (Bld) [#/Vol] NINF [facility] Nucleated RBC/100 WBC (Bld) [Ratio] 0.0 % /[address] [facility] Platelet mean volume (Bld) [Entitic vol] 10.7 fL 9.0 - 12.[address] [facility] Platelets (Bld) [#/Vol] 298 10*3/uL [facility] RBC (Bld) [#/Vol] 4.35 10*6/uL 3.90 - 5.2 0 m/uL [facility] WBC (Bld) [#/Vol] 8.89 10*3/uL [facility] Basophils (Bld) [#/Vol] 0.07 10*3/uL Normal <0.11 [facility] Comment on above: Order Comment: Speci men Type: BLOOD SPECIMEN Ordering Facility: [facility] Address: [address] [place] [address] Performed By: #### 5 7021-8 #### [facility] CLIA [id number] [address] [place] Basophils/100 WBC (Bld) 0.8 % Normal [facility] Comment on above: Order Comment: Speci men Type: BLOOD SPECIMEN Ordering Facility: [facility] Address: [address] [place] [address] Performed By: #### 5 7021-8 #### [facility] CLIA [id number] 1 [place] [address] [place] Differential cell count method Nom (Bld) Auto Normal [facility] Comment on above: Order Comment: Speci men Type: BLOOD SPECIMEN Ordering Facility: [facility] Address: [address] [place] [address] Performed By: #### 5 7021-8 #### [facility] CLIA [id number] [address] [place] [address] [place] Eosinophils (Bld) [#/Vol] 0.16 10*3/uL Normal <0.46 [facility] Comment on above: Order Comment: Speci men Type: BLOOD SPECIMEN Ordering Facility: [facility] Address: [address] [place] [address] Performed By: #### 5 7021-8 #### [facility] CLIA [id number] [address] Eosinophils/100 WBC (Bld) 1.8 % Normal [facility] Comment on above: Order Comment: Speci men Type: BLOOD SPECIMEN Ordering Facility: [facility] Address: [address] [place] [address] Performed By: #### 5 7021-8 #### [facility] CLIA [id number] [address] [place] Erythrocyte distribution width (RBC) [Ratio] 13.0 % Normal 11.5-15.0 [facility] Comment on above: Order Comment: Speci men Type: BLOOD SPECIMEN Ordering Facility: [facility] Address: [address] [place] [address] Performed By: #### 5 7021-8 #### [facility] CLIA [id number] [address] [place] Hematocrit (Bld) [Volume fraction] 42.4 % Normal 36.0-46.0 [facility] Comment on above: Order Comment: Speci men Type: BLOOD SPECIMEN Ordering Facility: [facility] Address: [address] [place] [address] Performed By: #### 5 7021-8 #### [facility] CLIA [id number] [address] [place] Hemoglobin (Bld) [Mass/Vol] 13.4 g/dL Normal 11.5-15.5 [facility] Comment on above: Order Comment: Speci men Type: BLOOD SPECIMEN Ordering Facility: [facility] Address: [address] [place] [address] Performed By: #### 5 7021-8 #### [facility] CLIA [id number] [address] [place] Immature granulocytes (Bld) [#/Vol] 10*3/uL Normal <0.10 [facility] Comment on above: Order Comment: Speci men Type: BLOOD SPECIMEN Ordering Facility: [facility] Address: [address] [place] [address] Performed By: #### 5 7021-8 #### [facility] CLIA [id number] [address] Immature granulocytes/100 WBC (Bld) 0.2 % Normal [facility] Comment on above: Order Comment: Speci men Type: BLOOD SPECIMEN Ordering Facility: [facility] Address: [address] [place] [address] Performed By: #### 5 7021-8 #### [facility] CLIA [id number] [address] [place] Lymphocytes (Bld) [#/Vol] 1.57 10*3/uL Normal 1.00-4.00 [facility] Comment on above: Order Comment: Speci men Type: BLOOD SPECIMEN Ordering Facility: [facility] Address: [address] [place] [address] Performed By: #### 5 7021-8 #### [facility] CLIA [id number] [address] Lymphocytes/100 WBC (Bld) 17.7 % Normal [facility] Comment on above: Order Comment: Speci men Type: BLOOD SPECIMEN Ordering Facility: [facility] Address: [address] [place] [address] Performed By: #### 5 7021-8 #### [facility] CLIA [id number] [address] MCH (RBC) [Entitic mass] 30.8 pg Normal 26.0-34.0 [facility] Comment on above: Order Comment: Speci men Type: BLOOD SPECIMEN Ordering Facility: [facility] Address: [address] [place] [address] Performed By: #### 5 7021-8 #### [facility] CLIA [id number] [address] [place] MCHC (RBC) [Mass/Vol] 31.6 g/dL Normal 30.5-36.0 [facility] Comment on above: Order Comment: Speci men Type: BLOOD SPECIMEN Ordering Facility: [facility] Address: [address] [place] [address] Performed By: #### 5 7021-8 #### [facility] CLIA [id number] [address] MCV (RBC) [Entitic vol] 97.5 fL Normal 80.0-100.0 [facility] Comment on above: Order Comment: Speci men Type: BLOOD SPECIMEN Ordering Facility: [facility] Address: [address] [place] [address] Performed By: #### 5 7021-8 #### [facility] CLIA [id number] [address] [place] Monocytes (Bld) [#/Vol] 0.74 10*3/uL Normal <0.87 [facility] Comment on above: Order Comment: Speci men Type: BLOOD SPECIMEN Ordering Facility: [facility] Address: [address] [place] [address] Performed By: #### 5 7021-8 #### [facility] CLIA [id number] [address] Monocytes/100 WBC (Bld) 8.3 % Normal [facility] Comment on above: Order Comment: Speci men Type: BLOOD SPECIMEN Ordering Facility: [facility] Address: [address] [place] [address] Performed By: #### 5 7021-8 #### [facility] CLIA [id number] [address] [place] Neutrophils (Bld) [#/Vol] 6.33 10*3/uL Normal 1.45-7.50 [facility] Comment on above: Order Comment: Speci men Type: BLOOD SPECIMEN Ordering Facility: [facility] Address: [address] [place] [address] Performed By: #### 5 7021-8 #### [facility] CLIA [id number] [address] [place] Neutrophils/100 WBC (Bld) 71.2 % Normal [facility] Comment on above: Order Comment: Speci men Type: BLOOD SPECIMEN Ordering Facility: [facility] Address: [address] [place] [address] Performed By: #### 5 7021-8 #### [facility] CLIA [id number] [address] [place] Nucleated RBC (Bld) [#/Vol] 10*3/uL Normal <0.01 [facility] Comment on above: Order Comment: Speci men Type: BLOOD SPECIMEN Ordering Facility: [facility] Address: [address] [place] [address] Performed By: #### 5 7021-8 #### [facility] CLIA [id number] [address] [place] Nucleated RBC/100 WBC (Bld) [Ratio] 0.0 /100 WBC Normal [facility] Comment on above: Order Comment: Speci men Type: BLOOD SPECIMEN Ordering Facility: [facility] Address: [address] [place] [address] Performed By: #### 5 7021-8 #### [facility] CLIA [id number] [address] [place] Platelet mean volume (Bld) [Entitic vol] 10.7 fL Normal 9.0-12.7 [facility] Comment on above: Order Comment: Speci men Type: BLOOD SPECIMEN Ordering Facility: [facility] Address: [address] [place] [address] Performed By: #### 5 7021-8 #### [facility] CLIA [id number] [address] [place] Platelets (Bld) [#/Vol] 298 10*3/uL Normal 150-400 [facility] Comment on above: Order Comment: Speci men Type: BLOOD SPECIMEN Ordering Facility: [facility] Address: [facility] [place] [address] Performed By: #### 5 7021-8 #### [facility] CLIA [id number] [address] [place] RBC (Bld) [#/Vol] 4.35 10*6/uL Normal 3.90-5.20 [facility] Comment on above: Order Comment: Speci men Type: BLOOD SPECIMEN Ordering Facility: [facility] Address: [address] [place] [address] Performed By: #### 5 7021-8 #### [facility] CLIA [id number] [address] OF [facility] WBC (Bld) [#/Vol] 8.89 10*3/uL Normal 3.70-11.00 [facility] Comment on above: Order Comment: Speci men Type: BLOOD SPECIMEN Ordering Facility: [facility] Address: [address] [place] [address] Performed By: #### 5 7021-8 #### [facility] CLIA [id number] [address] [place] CELIAC SCREENon 01-28-2024 GLIAD DEAMIDATED IGA QUAL Negative Normal Negative, Test not Indicated [facility] Comment on above: Order Comment: Speci men Type: BLOOD SPECIMEN Ordering Facility: [facility] Address: [address] [place] [address] Performed By: #### L [id number] #### [facility] CLIA [id number] [address] [place] [address] [place] Gliadin peptide IgA Qn (S) 2 Units Normal <20 [facility] Comment on above: Order Comment: Speci men Type: BLOOD SPECIMEN Ordering Facility: [facility] Address: [address] [place] [address] Performed By: #### L [id number] #### [facility] CLIA [id number] [address] [place] [address] [place] INTERPRETATION No serological evide nce of celiac disease, however, if celiac disease is clinically suspected and patient is not on gluten-free diet, histological diagnosis may be considered. HLA testing may help with risk assessment. Normal [facility] Comment on above: Order Comment: Speci men Type: BLOOD SPECIMEN Ordering Facility: [facility] Address: [address] [place] [address] Performed By: #### L [id number] #### [facility] CLIA [id number] [address] [place] [address] [place] TRANSGLUTAMINASE IGA ABS INTERPRETATION Negative Normal Negative [facility] Comment on above: Order Comment: Speci men Type: BLOOD SPECIMEN Ordering Facility: [facility] Address: [address] [place] [address] Result Comment: The following results were obtained with [employer] Simplere R h-tTG IgA VICTOR HUGO.???R h-tTG IgA values obtained with different manufacturers' assay methods may not be used interchangeably. The magnitude of the reported IgA levels cannot be corelated to an endpoint???concentration. This is used as an aid in diagnosis of celiac disease. Clinical correlation is required. Performed By: #### L [id number] #### [facility] CLIA [id number] [address] [place] [address] [place] tTG IgA Qn (S) <2 Normal <4 [facility] Comment on above: Order Comment: Speci men Type: BLOOD SPECIMEN Ordering Facility: [facility] Address: [address] [place] [address] Performed By: #### L [id number] #### [facility] CLIA [id number] [address] [place] [address] [place] CRP SerPl-mCncon 01-28-2024 CRP [Mass/Vol] mg/L Normal <0.9 [facility] Comment on above: Order Comment: Speci [facility] Type: BLOOD SPECIMEN Ordering Facility: [facility] Address: [address] [place] [address] Performed By: #### 2 4323-8, 1987-5, 29617-3, 3034-6 #### [facility] CLIA [id number] 1 [place] [address] [place] Calprotectin (Stl) [Mass/Mas s]on 01-28-2024 CALPROTECTIN, FECAL INTERP Normal Normal Normal [facility] Comment on above: Order Comment: Speci men Type: STOOL SPECIMEN Ordering Facility: [facility] Address: [address] [place] [address] Result Comment: Inte rpretation: <50.0 ug/g: Normal 50.0 ug/g - 120.0 ug/g: Borderline elevated. Re-evaluation in 4-6 weeks is recommended if clinically indicated. >120.0 ug/g: Elevated Performed By: #### 5 4067-4, 73671-3, 09411-1 #### [facility] CLIA [id number] [address] [place] [address] [place] CALPROTECTIN, FECAL QUANTITATIVE 45.0 ug/g Normal <50 [facility] Comment on above: Order Comment: Speci men Type: STOOL SPECIMEN Ordering Facility: [facility] Address: [address] [place] [address] Performed By: #### 5 4067-4, 08672-1, 52172-3 #### [facility] CLIA [id number] [address] [place] [address] [place] Cobalamin (Vitamin B12) [Mas s/Vol]on 01-28-2024 Interpretation and review of laboratory results Normal [facility] Comprehensive metabolic 2000 panelon 01-28-2024 Albumin [Mass/Vol] 4.1 g/dL 3.9 - 4.9 g/dL [facility] ALP [Catalytic activity/Vol] 66 U/L 34 - 123 U/L [facility] ALT With P-5'-P [Catalytic activity/Vol] 25 U/L 7 - 38 U/L [facility] Anion gap [Moles/Vol] 9 mmol/L 8 - 15 mmol/L [facility] AST With P-5'-P [Catalytic activity/Vol] 20 U/L 13 - 35 U/L [facility] Bilirubin [Mass/Vol] 0.3 mg/dL 0.2 - 1.3 mg/dL [facility] Calcium [Mass/Vol] 8.7 mg/dL 8.5 - 10. 2 mg/dL [facility] Chloride [Moles/Vol] 104 mmol/L 98 - 107 mmol/L [facility] CO2 [Moles/Vol] 26 mmol/L 22 - 30 mmol/L [facility] Creatinine [Mass/Vol] 0.65 mg/dL 0.58 - 0.96 mg/dL [facility] GFR/1.73 sq M.predicted among non-blacks MDRD (S/P/Bld) [Vol rate/Area] 106 mL/min/{1.73_m2} - PINF [facility] Comment on above: Estimated Glomerular Filtration Rate (eGFR) is calculated using the 2020 CKD-EPI creatinine equation. This equation utilizes serum creatinine, sex, and age as parameters. The creatinine assay has traceable calibration to isotope dilution-mass spectrometry. Refer to KDIGO guidelines for clinical interpretation. In patients with unstable renal function, e.g. those with acute kidney injury, the eGFR may not accurately reflect actual GFR. Glucose [Mass/Vol] 75 mg/dL 74 - 99 mg/dL [facility] Comment on above: The [place] Diabete s Association (ADA) provides guidance for cutoff values for fasting glucose and random glucose. The ADA defines fasting as no caloric intake for at least 8 hours. Fasting plasma glucose results between 100 to 125 mg/dL indicate increased risk for diabetes (prediabetes). Fasting plasma glucose results greater than or equal to 126 mg/dL meet the criteria for diagnosis of diabetes. In the absence of unequivocal hyperglycemia, results should be confirmed by repeat testing. In a patient with classic symptoms of hyperglycemia or hyperglycemic crisis, random plasma glucose results greater than or equal to 200 mg/dL meet the criteria for diagnosis of diabetes. Reference: Standards of Medical Care in Diabetes 2016, [place] Diabetes Association. Diabetes Care. 2016.39(Suppl 1). Potassium [Moles/Vol] 3.9 mmol/L 3.7 - 5.1 mmol/L [facility] Protein [Mass/Vol] 6.7 g/dL 6.3 - 8.0 g/dL [facility] Sodium [Moles/Vol] 139 mmol/L 136 - 144 mmol/L [facility] Urea nitrogen [Mass/Vol] 15 mg/dL 7 - 21 mg/dL [facility] Albumin [Mass/Vol] 4.1 g/dL Normal 3.9-4.9 [facility] Comment on above: Order Comment: Speci men Type: BLOOD SPECIMEN Ordering Facility: [facility] Address: [address] [place] [address] Performed By: #### 2 4322-8, 1987-08, , 3033-09 #### [facility] CLIA [id number] [address] ALP [Catalytic activity/Vol] 66 U/L Normal 34-123 [facility] Comment on above: Order Comment: Speci men Type: BLOOD SPECIMEN Ordering Facility: [facility] Address: [address] [place] [address] Performed By: #### 2 4328, 1987-08, , 3033-09 #### [facility] CLIA [id number] [address] STATES OF [facility] ALT With P-5'-P [Catalytic activity/Vol] 25 U/L Normal 7-38 [facility] Comment on above: Order Comment: Speci men Type: BLOOD SPECIMEN Ordering Facility: [facility] Address: [address] [place] [address] Performed By: #### 2 8, 1987-08, , 3033-09 #### [facility] CLIA [id number] [address] Anion gap [Moles/Vol] 9 mmol/L Normal 8-15 [facility] Comment on above: Order Comment: Speci men Type: BLOOD SPECIMEN Ordering Facility: [facility] Address: [address] [place] [address] Performed By: #### 2 4328, 1987-08, , 3033-09 #### [facility] CLIA [id number] [address] OF [facility] AST With P-5'-P [Catalytic activity/Vol] 20 U/L Normal 13-35 [facility] Comment on above: Order Comment: Speci men Type: BLOOD SPECIMEN Ordering Facility: [facility] Address: [address] [place] [address] Performed By: #### 2 4322-8, 1987-08, , 3033-09 #### [facility] CLIA [id number] 1 [place] [address] [place] Bilirubin [Mass/Vol] 0.3 mg/dL Normal 0.2-1.3 [facility] Comment on above: Order Comment: Speci men Type: BLOOD SPECIMEN Ordering Facility: [facility] Address: [address] [place] [address] Performed By: #### 2 4328, 1987-08, , 3033-09 #### [facility] CLIA [id number] 1 [place] [address] [place] Calcium [Mass/Vol] 8.7 mg/dL Normal 8.5-10.2 [facility] Comment on above: Order Comment: Speci men Type: BLOOD SPECIMEN Ordering Facility: [facility] Address: [address] [place] [address] Performed By: #### 2 8, 1987-08, , 3033-09 #### [facility] CLIA [id number] 1 [place] [address] [place] Chloride [Moles/Vol] 104 mmol/L Normal 98-107 [facility] Comment on above: Order Comment: Speci men Type: BLOOD SPECIMEN Ordering Facility: [facility] Address: [address] [place] [address] Performed By: #### 2 8, 1987-08, , 3033-09 #### [facility] CLIA [id number] 1 [place] [address] [place] CO2 [Moles/Vol] 26 mmol/L Normal 22-30 [facility] Comment on above: Order Comment: Speci men Type: BLOOD SPECIMEN Ordering Facility: [facility] Address: [address] [place] [address] Performed By: #### 2 4323-8, 1987-08, , 3033-09 #### [facility] CLIA [id number] [address] STATES OF [facility] Creatinine [Mass/Vol] 0.65 mg/dL Normal 0.58-0.96 [facility] Comment on above: Order Comment: Pepito ontiveros Type: BLOOD SPECIMEN Ordering Facility: [facility] Address: [address] [place] [address] Performed By: #### 2 4323-8, 1987-08, , 3033-09 #### [facility] CLIA [id number] [address] Creatinine and Glomerular filtration rate.predicted panel (S/P/Bld) 106 mL/min/1.73m??? Normal >=60 [facility] Comment on above: Order Comment: Pepito ontiveros Type: BLOOD SPECIMEN Ordering Facility: [facility] Address: [address] [place] [address] Result Comment: Ara mated Glomerular Filtration Rate (eGFR) is calculated using the 2020 CKD-EPI creatinine equation. This equation utilizes serum creatinine, sex, and age as parameters. The creatinine assay has traceable calibration to isotope dilution-mass spectrometry. Refer to KDIGO guidelines for clinical interpretation. In patients with unstable renal function, e.g. those with acute kidney injury, the eGFR may not accurately reflect actual GFR. Performed By: #### 2 432-8, 1987-08, , 3033-09 #### [facility] CLIA [id number] [address] [place] Glucose [Mass/Vol] 75 mg/dL Normal 74-99 [facility] Comment on above: Order Comment: Pepito ontiveros Type: BLOOD SPECIMEN Ordering Facility: [facility] Address: [address] [place] [address] Result Comment: The [place] Diabetes Association (ADA) provides guidance for cutoff values for fasting glucose and random glucose. The ADA defines fasting as no caloric intake for at least 8 hours. Fasting plasma glucose results between 100 to 125 mg/dL indicate increased risk for diabetes (prediabetes). Fasting plasma glucose results greater than or equal to 126 mg/dL meet the criteria for diagnosis of diabetes. In the absence of unequivocal hyperglycemia, results should be confirmed by repeat testing. In a patient with classic symptoms of hyperglycemia or hyperglycemic crisis, random plasma glucose results greater than or equal to 200 mg/dL meet the criteria for diagnosis of diabetes. Reference: Standards of Medical Care in Diabetes 2016, [place] [employer] Association. Diabetes Care. 2016.39(Suppl 1). Performed By: #### 2 8, 1987-08, , 3033-09 #### [facility] CLIA [id number] 1 [place] [address] [place] Potassium [Moles/Vol] 3.9 mmol/L Normal 3.7-5.1 [facility] Comment on above: Order Comment: Pepito ontiveros Type: BLOOD SPECIMEN Ordering Facility: [facility] Address: [address] [place] [address] Performed By: #### 2 4322-11, 1987-08, 77757-1, 3033-09 #### [facility] CLIA [id number] 1 [place] [address] [place] Protein [Mass/Vol] 6.7 g/dL Normal 6.3-8.0 [facility] Comment on above: Order Comment: Pepito ontiveros Type: BLOOD SPECIMEN Ordering Facility: [facility] Address: [address] [place] [address] Performed By: #### 2 4322-11, 1987-08, , 3033-09 #### [facility] CLIA [id number] 1 [place] [address] [place] Sodium [Moles/Vol] 139 mmol/L Normal 136-144 [facility] Comment on above: Order Comment: Aloki men Type: BLOOD SPECIMEN Ordering Facility: [facility] Address: [address] [place] [address] Performed By: #### 2 8, 1987-08, , 3033-09 #### [facility] CLIA [id number] [address] [place] [address] [place] Urea nitrogen [Mass/Vol] 15 mg/dL Normal 7-21 [facility] Comment on above: Order Comment: Speci men Type: BLOOD SPECIMEN Ordering Facility: [facility] Address: [address] [place] [address] Performed By: #### 2 4323-8, 1988-5, 49491-9, 3034-6 #### [facility] CLIA [id number] [address] [place] [address] [place] G lamblia+Cryptosp Ag Stl Ql IAon 01-28-2024 G. lamblia+Cryptospor idium sp Ag IA Ql (Stl) CRYPTOSPORIDIUM ANTIGEN BY EIA: Negative for Cryptosporidium by EIA. GIARDIA ANTIGEN BY EIA: Negative for Giardia lamblia by EIA. Normal [facility] Comment on above: Performed By: #### 5 4067-4, 44620-1, 50212-1 #### [facility] CLIA [id number] [address] [place] [address] [place] Gastrointestinal pathogens i dentified DEYVI+probe Nom (Stl)on 01-28-2024 Campylobacter sp DNA DEYVI+probe Nom (Unsp spec) Not detected Normal Not Detected [facility] Comment on above: Order Comment: Speci men Type: STOOL SPECIMEN Ordering Facility: [facility] Address: [address] [place] [address] Performed By: #### 7 9390-1 #### [facility] CLIA [id number] [address] [place] [address] [place] Salmonella sp DNA DEYVI+probe Ql (Unsp spec) Not detected Normal Not Detected [facility] Comment on above: Order Comment: Speci men Type: STOOL SPECIMEN Ordering Facility: [facility] Address: [address] [place] [address] Performed By: #### 7 9390-1 #### [facility] CLIA [id number] [address] [place] [address] [place] Shiga toxin stx gene DEYVI+probe Nom (Unsp spec) Not detected Normal Not Detected [facility] Comment on above: Order Comment: Speci men Type: STOOL SPECIMEN Ordering Facility: [facility] Address: [address] [place] [address] Performed By: #### 7 9390-1 #### [facility] CLIA [id number] [address] [place] [address] [place] Shigella sp DNA DEYVI+probe Ql (Unsp spec) Not detected Normal Not Detected [facility] Comment on above: Order Comment: Speci men Type: STOOL SPECIMEN Ordering Facility: [facility] Address: [address] [place] [address] Performed By: #### 7 9390-1 #### [facility] CLIA [id number] [address] [place] [address] [place] IgA SerPl-mCncon 01-28-2024 IgA [Mass/Vol] 85 mg/dL Normal 70-400 [facility] Comment on above: Order Comment: Speci men Type: BLOOD SPECIMEN Ordering Facility: [facility] Address: [address] [place] [address] Performed By: #### 2 458-8 #### [facility] CLIA [id number] [address] [place] [address] [place] Iron and Iron binding capaci ty panelon 01-28-2024 Iron [Mass/Vol] 82 ug/dL 41 - 186 ug/dL [facility] Iron binding capacity [Mass/Vol] 245 ug/dL 232 - 386 ug/dL [facility] Iron saturation [Mass fraction] 33.5 % 15.0 - 57.0 % [facility] Iron [Mass/Vol] 82 ug/dL Normal 41-186 [facility] Comment on above: Order Comment: Speci men Type: BLOOD SPECIMEN Ordering Facility: [facility] Address: [address] [place] [address] Performed By: #### 2 4323-8, 1987-5, 53603-4, 3034-6 #### [facility] CLIA [id number] [address] STATES OF [facility] Iron binding capacity [Mass/Vol] 245 ug/dL Normal 232-386 [facility] Comment on above: Order Comment: Speci men Type: BLOOD SPECIMEN Ordering Facility: [facility] Address: [address] [place] [address] Performed By: #### 2 4323-8, 1987-08, 08100-2, 3033-6 #### [facility] CLIA [id number] [address] [place] [id number] [facility] Iron saturation [Mass fraction] 33.5 % Normal 15.0-57.0 [facility] Comment on above: Order Comment: Speci men Type: BLOOD SPECIMEN Ordering Facility: [facility] Address: [address] [place] [address] Performed By: #### 2 4323-8, 1987-08, 75013-8, 3033-09 #### [facility] CLIA [id number] [address] OF [facility] Laboratory - Chemistry and C hemistry - challengeon 01-28-2024 Cobalamin (Vitamin B12) [Mass/Vol] 774 pg/mL 232 - 1245 pg/mL [facility] 25-hydroxyvitamin D3 [Mass/Vol] 63.7 ng/mL 30.0 - PINF ng/mL [facility] Comment on above: Classification of 25 [place] Vitamin D status: Deficiency: <= 20.0 ng/ml. Insufficiency: 21.0-29.0 ng/ml. Sufficiency: >= 30.0 ng/ml. CRP [Mass/Vol] mg/dL NINF - 0.9 mg/dL [facility] Transferrin [Mass/Vol] 202 mg/dL 200 - 360 mg/dL [facility] No Panel Informationon 01-27 Interpretation and review of laboratory results Normal [facility] Transferrin SerPl-mCncon Transferrin [Mass/Vol] 202 mg/dL Normal 200-360 [facility] Comment on above: Order Comment: Speci men Type: BLOOD SPECIMEN Ordering Facility: [facility] Address: [address] [place] [address] Performed By: #### 2 4323-8, 1987-5, 69632-3, 3034-6 #### [facility] CLIA [id number] [address] [place] Vit B12 SerPl-mCncon 024 Cobalamin (Vitamin B12) [Mass/Vol] 774 pg/mL Normal 232-1245 [facility] Comment on above: Order Comment: Speci men Type: BLOOD SPECIMEN Ordering Facility: [facility] Address: [address] [place] [address] Performed By: #### 2 132-9 #### [facility] CLIA [id number] [address] [place] CBC W Auto Differential pane l (Bld)on 08-10-2023 Basophils (Bld) [#/Vol] 0.05 x10*3/uL Normal 0.00-0.10 [facility] Comment on above: Performed By: #### 5 7021-8 #### SARA BUSTILLOMOTZRADHA L ([id number]) [facility] ([facility]) [id number] [place] [address] 85072 Basophils/100 WBC (Bld) 1.3 % Normal 0.0-2.0 [facility] Comment on above: Performed By: #### 5 7021-8 #### SARA SCHMOTZER L ([id number]) [facility] ([facility]) [address] [place] [address] 90631 Eosinophils (Bld) [#/Vol] 0.12 x10*3/uL Normal 0.00-0.70 [facility] Comment on above: Performed By: #### 5 7021-8 #### SARA BUSTILLOMOTZER L ([id number]) [facility] ([facility]) [address] [place] [address] 46869 Eosinophils/100 WBC (Bld) 3.0 % Normal 0.0-6.0 [facility] Comment on above: Performed By: #### 5 7021-8 #### SARA BUSTILLOMOTZER L ([id number]) [facility] ([facility]) [address] [place] [address] 77987 Erythrocyte distribution width (RBC) [Ratio] 12.5 % Normal 11.5-14.5 [facility] Comment on above: Performed By: #### 5 7021-8 #### SARA Osborne ([id number]) [facility] ([facility]) [address] [place] [address] 45170 Hematocrit (Bld) [Volume fraction] 42.9 % Normal 36.0-46.0 [facility] Comment on above: Performed By: #### 5 7021-8 #### SARA Osborne ([id number]) [facility] ([facility]) [address] [place] [address] 63604 Hemoglobin (Bld) [Mass/Vol] 13.4 g/dL Normal 12.0-16.0 [facility] Comment on above: Performed By: #### 5 7021-8 #### SARA Osborne ([id number]) [facility] ([facility]) [address] [place] [address] 97669 Immature granulocytes (Bld) [#/Vol] 0.01 x10*3/uL Normal 0.00-0.70 [facility] Comment on above: Performed By: #### 5 7021-8 #### SARA Osborne ([id number]) [facility] ([facility]) [address] [place] [address] 63406 Immature granulocytes/100 WBC (Bld) 0.3 % Normal 0.0-0.9 [facility] Comment on above: Result Comment: Kyra ture Granulocyte Count (IG) includes promyelocytes, myelocytes and metamyelocytes but does not include bands. Percent differential counts (%) should be interpreted in the context of the absolute cell counts (cells/UL). Performed By: #### 5 7021-8 #### SARA Osborne ([id number]) [facility] ([facility]) [address] [place] [address] 02327 Lymphocytes (Bld) [#/Vol] 1.45 x10*3/uL Normal 1.20-4.80 [facility] Comment on above: Performed By: #### 5 7021-8 #### SARA Osborne ([id number]) [facility] ([facility]) [address] [place] [address] 07929 Lymphocytes/100 WBC (Bld) 36.3 % Normal 13.0-44.0 [facility] Comment on above: Performed By: #### 5 7021-8 #### SARA Osborne ([id number]) [facility] ([facility]) [address] [place] [address] 25085 MCH (RBC) [Entitic mass] 30.6 pg Normal 26.0-34.0 [facility] Comment on above: Performed By: #### 5 7021-8 #### SARA Osborne ([id number]) [facility] ([facility]) [address] [place] [address] 92786 MCHC (RBC) [Mass/Vol] 31.2 g/dL Low 32.0-36.0 [facility] Comment on above: Performed By: #### 5 7021-8 #### SARA Osborne ([id number]) [facility] ([facility]) [address] [place] [address] 22761 MCV (RBC) [Entitic vol] 98 fL Normal 80-100 [facility] Comment on above: Performed By: #### 5 7021-8 #### SARA Osborne ([id number]) [facility] ([facility]) [address] [place] [address] 36995 Monocytes (Bld) [#/Vol] 0.42 x10*3/uL Normal 0.10-1.00 [facility] Comment on above: Performed By: #### 5 7021-8 #### SARA Osborne ([id number]) [facility] ([facility]) [address] [place] [address] 39054 Monocytes/100 WBC (Bld) 10.5 % Normal 2.0-10.0 [facility] Comment on above: Performed By: #### 5 7021-8 #### SARA Osborne ([id number]) [facility] ([facility]) [address] [place] [address] 92802 Neutrophils (Bld) [#/Vol] 1.94 x10*3/uL Normal 1.20-7.70 [facility] Comment on above: Result Comment: Perc ent differential counts (%) should be interpreted in the context of the absolute cell counts (cells/uL). Performed By: #### 5 7021-8 #### SARA PEREZ L ([id number]) [facility] ([facility]) [address] [place] [address] 12026 Neutrophils/100 WBC (Bld) 48.6 % Normal 40.0-80.0 [facility] Comment on above: Performed By: #### 5 7021-8 #### SARA Osborne ([id number]) [facility] ([facility]) [address] [place] [address] 85918 Nucleated RBC/100 WBC (Bld) [Ratio] 0.0 /100 WBCs Normal 0.0-0.0 [facility] Comment on above: Performed By: #### 5 7021-8 #### SARA PEREZ L ([id number]) [facility] ([facility]) [address] [place] [address] 87637 Platelets (Bld) [#/Vol] 225 x10*3/uL Normal 150-450 [facility] Comment on above: Performed By: #### 5 7021-8 #### SARA Osborne ([id number]) [facility] ([facility]) [address] [place] [address] 93084 RBC (Bld) [#/Vol] 4.38 x10*6/uL Normal 4.00-5.20 [facility] Comment on above: Performed By: #### 5 7021-8 #### SARA PEREZ L ([id number]) [facility] ([facility]) [address] [place] [address] 86849 WBC (Bld) [#/Vol] 4.0 x10*3/uL Low 4.4-11.3 [facility] Comment on above: Performed By: #### 5 7021-8 #### SARA Osbonre ([id number]) [facility] ([facility]) [address] [place] [address] 57774 Comprehensive metabolic 2000 panelon 08-10-2023 Albumin BCP dye [Mass/Vol] 4.3 g/dL Normal 3.4-5.0 [facility] Comment on above: Performed By: #### 2 4323-8 #### SARA Osborne ([id number]) [facility] ([facility]) [address] [place] [address] 96045 ALP [Catalytic activity/Vol] 48 U/L Normal 33-110 [facility] Comment on above: Performed By: #### 2 4323-8 #### SARA Osborne ([id number]) [facility] ([facility]) [address] [place] [address] 68278 ALT With P-5'-P [Catalytic activity/Vol] 37 U/L Normal 7-45 [facility] Comment on above: Result Comment: Yoselin ents treated with Sulfasalazine may generate falsely decreased results for ALT. Performed By: #### 2 4323-8 #### SARA Osborne ([id number]) [facility] ([facility]) [address] [place] [address] 27153 Anion gap [Moles/Vol] 11 mmol/L Normal 10-20 [facility] Comment on above: Performed By: #### 2 4323-8 #### SARA Osborne ([id number]) [facility] ([facility]) [address] [place] [address] 56314 AST With P-5'-P [Catalytic activity/Vol] 24 U/L Normal 9-39 [facility] Comment on above: Performed By: #### 2 4323-8 #### SARA Osborne ([id number]) [facility] ([facility]) [address] [place] [address] 00869 Bilirubin [Mass/Vol] 0.5 mg/dL Normal 0.0-1.2 [facility] Comment on above: Performed By: #### 2 4323-8 #### SARA Osborne ([id number]) [facility] ([facility]) [address] [place] [address] Calcium [Mass/Vol] 9.6 mg/dL Normal 8.6-10.6 [facility] Comment on above: Performed By: #### 2 4323-8 #### SARA PEREZ L ([id number]) [facility] ([facility]) [address] [place] [address] 01943 Chloride [Moles/Vol] 104 mmol/L Normal 98-107 [facility] Comment on above: Performed By: #### 2 4323-8 #### SARA PEREZ L ([id number]) [facility] ([facility]) [address] [place] [address] 92356 CO2 [Moles/Vol] 29 mmol/L Normal 21-32 [facility] Comment on above: Performed By: #### 2 4323-8 #### SARA PEREZ L ([id number]) [facility] ([facility]) [address] [place] [address] 57310 Creatinine [Mass/Vol] 0.30 mg/dL Low 0.50-1.05 [facility] Comment on above: Performed By: #### 2 4323-8 #### SARA PEREZ L ([id number]) [facility] ([facility]) [address] [place] [address] 65612 GFR/1.73 sq M.predicted MDRD (S/P/Bld) [Vol rate/Area] mL/min/{1.73_m2} Normal >60 [facility] Comment on above: Result Comment: Calc ulations of estimated GFR are performed using the 2020 CKD-EPI Study Refit equation without the race variable for the IDMS-Traceable creatinine methods. https://jasn.asnjournals.org/content/early//ASN.377367207 8 Performed By: #### 2 4323-8 #### SARA PEREZ L ([id number]) [facility] ([facility]) [address] [place] [address] 05012 Glucose [Mass/Vol] 78 mg/dL Normal 74-99 [facility] Comment on above: Performed By: #### 2 4323-8 #### SARA Osborne ([id number]) [facility] ([facility]) [address] [place] [address] 79750 Potassium [Moles/Vol] 4.2 mmol/L Normal 3.5-5.3 [facility] Comment on above: Performed By: #### 2 4323-8 #### SARA Osborne ([id number]) [facility] ([facility]) [address] [place] [address] 04900 Protein [Mass/Vol] 6.6 g/dL Normal 6.4-8.2 [facility] Comment on above: Performed By: #### 2 4323-8 #### SARA Osborne ([id number]) [facility] ([facility]) [address] [place] [address] 47443 Sodium [Moles/Vol] 140 mmol/L Normal 136-145 [facility] Comment on above: Performed By: #### 2 4323-8 #### SARA Osborne ([id number]) [facility] ([facility]) [address] [place] [address] 79164 Urea nitrogen [Mass/Vol] 24 mg/dL High 6-23 [facility] Comment on above: Performed By: #### 2 4323-8 #### SARA Osborne ([id number]) [facility] ([facility]) [address] [place] [address] 37429 Follitropin and Lutropin easley el Qnon 08-10-2023 Follitropin Qn 90.5 IU/L Normal [facility] Comment on above: Result Comment: FSH Ref Values Follicular 2.0-12.0 IU/L Mid-Cycle 12.0-25.0 IU/L Luteal Phase 2.0-12.0 IU/L Menopause 30.0-150.0 IU/L Pre-puberty 50% Adult IU/L Adult Male 2.0-10.0 IU/L Infants 0.0-1.0 IU/L Performed By: #### 3 4549-6 #### SARA Osborne ([id number]) [facility] ([facility]) [address] [place] [address] 88873 Lutropin Qn 68.8 IU/L Normal [facility] Comment on above: Result Comment: LH R eference Values Follicular Phase 1.9-12.5 IU/L Mid-Cycle 8.7-76.3 IU/L Luteal Phase 0.5-16.9 IU/L Post Menopause 5.0-55.2 IU/L Children 0- 6.0 IU/L Adult Male 18-70 years 1.5- 9.3 IU/L Adult Male >70 years 3.1-34.6 IU/L Performed By: #### 3 4549-6 #### SARA Osborne ([id number]) [facility] ([facility]) [address] [place] [address] 48487 Lipid 1996 panelon 4 Cholesterol [Mass/Vol] 218 mg/dL High 0-199 [facility] Comment on above: Result Comment: Age Desirable Borderline High High 0-19 Y 0 - 169 170 - 199 >/= 200 20-24 Y 0 - 189 190 - 224 >/= 225 >24 Y 0 - 199 200 - 239 >/= 240 All ranges are based on fasting samples. Specific therapeutic targets will vary based on patient-specific cardiac risk. Pediatric guidelines reference:Pediatrics 2011, 128(S5).Adult guidelines reference: NCEP ATPIII Guidelines,TUSHAR 2001, 258:2486-97 Venipuncture immediately after or during the administration of Metamizole may lead to falsely low results. Testing should be performed immediately prior to Metamizole dosing. Performed By: #### 2 4323-8 #### SARA Osborne ([id number]) [facility] ([facility]) [address] [place] [address] 34742 Cholesterol in HDL [Mass/Vol] 101.6 mg/dL Normal [facility] Comment on above: Result Comment: Age Very Low Low Normal High 0-19 Y < 35 < 40 40-45 ---- 20-24 Y ---- < 40 >45 ---- >24 Y ---- < 40 40-60 >60 Performed By: #### 2 4323-8 #### SARA Osborne ([id number]) [facility] ([facility]) [address] [place] [address] 51880 Cholesterol in LDL [Mass/Vol] 108 mg/dL High <=99 [facility] Comment on above: Result Comment: Near Borderline AGE Desirable Optimal High High Very High 0-19 Y 0 - 109 --- 110-129 >/= 130 ---- 20-24 Y 0 - 119 --- 120-159 >/= 160 ---- >24 Y 0 - 99 100-129 130-159 160-189 >/=190 Performed By: #### 2 4323-8 #### SARA Osborne ([id number]) [facility] ([facility]) [address] [place] [address] 06676 Cholesterol in VLDL [Mass/Vol] 8 mg/dL Normal 0-40 [facility] Comment on above: Performed By: #### 2 4323-8 #### SARA Osborne ([id number]) [facility] ([facility]) [address] [place] [address] 78756 CHOLESTEROL/HDL RATIO 2.1 Normal [facility] Comment on above: Result Comment: Ref Values Desirable < 3.4 High Risk > 5.0 Performed By: #### 2 4323-8 #### SARA Osborne ([id number]) [facility] ([facility]) [address] [place] [address] 20979 NON HDL CHOLESTEROL 116 mg/dL Normal 0-149 [facility] Comment on above: Result Comment: Age Desirable Borderline High High Very High 0-19 Y 0 - 119 120 - 144 >/= 145 >/= 160 20-24 Y 0 - 149 150 - 189 >/= 190 ---- >24 Y 30 mg/dL above LDL Cholesterol goal Performed By: #### 2 4323-8 #### SARA Osborne (31504) [facility] ([facility]) [address] [place] [address] Triglyceride [Mass/Vol] 41 mg/dL Normal 0-149 [facility] Comment on above: Result Comment: Age Desirable Borderline High High Very High 0 D-90 D 19 - 174 ---- ---- ---- 91 D- 9 Y 0 - 74 75 - 99 >/= 100 ---- 10-19 Y 0 - 89 90 - 129 >/= 130 ---- 20-24 Y 0 - 114 115 - 149 >/= 150 ---- >24 Y 0 - 149 150 - 199 200- 499 >/= 500 Venipuncture immediately after or during the administration of Metamizole may lead to falsely low results. Testing should be performed immediately prior to Metamizole dosing. Performed By: #### 2 4323-8 #### SARA Osborne ([id number]) [facility] ([facility]) [address] [place] [address] 99860 TSH WITH REFLEX TO FREE T4 I F ABNORMALon 08-10-2023 TSH Qn 2.01 m[IU]/L Normal 0.44-3.98 [facility] Comment on above: Order Comment: TSH t esting is performed using different testing methodology at [facility] than at other [facility]. Direct result comparisons should only be made within the same method. Performed By: #### T WILLIAM #### SARA Osborne ([id number]) [facility] ([facility]) [address] [place] [address] 86326 CBC W Auto Differential pane l (Bld)on 06-04-2023 Basophils (Bld) [#/Vol] 0.05 x10*3/uL Normal 0.00-0.10 [facility] Comment on above: Performed By: #### 5 7021-8 #### SARA Osborne ([id number]) [facility] ([facility]) [address] [place] [address] 43791 Basophils/100 WBC (Bld) 0.8 % Normal 0.0-2.0 [facility] Comment on above: Performed By: #### 5 7021-8 #### SARA Osborne ([id number]) [facility] ([facility]) [address] [place] [address] 77059 Eosinophils (Bld) [#/Vol] 0.06 x10*3/uL Normal 0.00-0.70 [facility] Comment on above: Performed By: #### 5 7021-8 #### SARA Osborne ([id number]) [facility] ([facility]) [id number] [place] [address] 48836 Eosinophils/100 WBC (Bld) 0.9 % Normal 0.0-6.0 [facility] Comment on above: Performed By: #### 5 7021-8 #### SARA Osborne ([id number]) [facility] ([facility]) [address] [place] [address] 78329 Erythrocyte distribution width (RBC) [Ratio] 13.1 % Normal 11.5-14.5 [facility] Comment on above: Performed By: #### 5 7021-8 #### SARA Osborne ([id number]) [facility] ([facility]) [address] [place] [address] 46156 Hematocrit (Bld) [Volume fraction] 44.1 % Normal 36.0-46.0 [facility] Comment on above: Performed By: #### 5 7021-8 #### SARA Osborne ([id number]) [facility] ([facility]) [address] [place] [address] 05151 Hemoglobin (Bld) [Mass/Vol] 14.2 g/dL Normal 12.0-16.0 [facility] Comment on above: Performed By: #### 5 7021-8 #### SARA PEREZ L ([id number]) [facility] ([facility]) [address] [place] [address] 69412 Immature granulocytes (Bld) [#/Vol] 0.02 x10*3/uL Normal 0.00-0.70 [facility] Comment on above: Performed By: #### 5 7021-8 #### SARA Osborne ([id number]) [facility] ([facility]) [address] [place] [address] 81368 Immature granulocytes/100 WBC (Bld) 0.3 % Normal 0.0-0.9 [facility] Comment on above: Result Comment: Kyra ture Granulocyte Count (IG) includes promyelocytes, myelocytes and metamyelocytes but does not include bands. Percent differential counts (%) should be interpreted in the context of the absolute cell counts (cells/UL). Performed By: #### 5 7021-8 #### SARA Osborne ([id number]) [facility] ([facility]) [address] [place] [address] [id number] Lymphocytes (Bld) [#/Vol] 1.98 x10*3/uL Normal 1.20-4.80 [facility] Comment on above: Performed By: #### 5 7021-8 #### SARA Osborne ([id number]) [facility] ([facility]) [address] [place] [address] [id number] Lymphocytes/100 WBC (Bld) 30.3 % Normal 13.0-44.0 [facility] Comment on above: Performed By: #### 5 7021-8 #### SARA PEREZ L ([id number]) [facility] ([facility]) [address] [place] [address] [id number] MCH (RBC) [Entitic mass] 30.5 pg Normal 26.0-34.0 [facility] Comment on above: Performed By: #### 5 7021-8 #### SARA Osborne ([id number]) [facility] ([facility]) [id number] [place] [address] MCHC (RBC) [Mass/Vol] 32.2 g/dL Normal 32.0-36.0 [facility] Comment on above: Performed By: #### 5 7021-8 #### SARA BUSTILLOMOGLORIA L ([id number]) [facility] ([facility]) [address] [place] [address]47 MCV (RBC) [Entitic vol] 95 fL Normal 80-100 [facility] Comment on above: Performed By: #### 5 7021-8 #### SARA Obsorne ([id number]) [facility] ([facility]) [address] [place] [address] [place] [address] Monocytes (Bld) [#/Vol] 0.61 x10*3/uL Normal 0.10-1.00 [facility] Comment on above: Performed By: #### 5 7021-8 #### SARA WHITTENTZER L ([id number]) [facility] ([facility]) [address] [place] [address] Monocytes/100 WBC (Bld) 9.3 % Normal 2.0-10.0 [facility] Comment on above: Performed By: #### 5 7021-8 #### SARA BUSTILLOMOMARIZOLER L ([id number]) [facility] ([facility]) [address] [place] [address] Neutrophils (Bld) [#/Vol] 3.82 x10*3/uL Normal 1.20-7.70 [facility] Comment on above: Result Comment: Perc ent differential counts (%) should be interpreted in the context of the absolute cell counts (cells/uL). Performed By: #### 5 7021-8 #### SARA WHITTENTZER L ([id number]) [facility] ([facility]) [address] [place] [address] Neutrophils/100 WBC (Bld) 58.4 % Normal 40.0-80.0 [facility] Comment on above: Performed By: #### 5 7021-8 #### SARA BUSTILLOMOGLORIA L ([id number]) [facility] ([facility]) [address] [place] [address] Nucleated RBC/100 WBC (Bld) [Ratio] 0.0 /100 WBCs Normal 0.0-0.0 [facility] Comment on above: Performed By: #### 5 7021-8 #### SARA BUSTILLOMOGLORIA L ([id number]) [facility] ([facility]) [address] [place] [address] Platelets (Bld) [#/Vol] 279 x10*3/uL Normal 150-450 [facility] Comment on above: Performed By: #### 5 7021-8 #### SARA BUSTILLOMOTZRADHA L ([id number]) [facility] ([facility]) [address] [place] [address] RBC (Bld) [#/Vol] 4.66 x10*6/uL Normal 4.00-5.20 [facility] Comment on above: Performed By: #### 5 7021-8 #### SARA Osborne ([id number]) [facility] ([facility]) [address] [place] [address] WBC (Bld) [#/Vol] 6.5 x10*3/uL Normal 4.4-11.3 [facility] Comment on above: Performed By: #### 5 7021-8 #### SARA Osborne ([id number]) [facility] ([facility]) [address] [place] [address] Clostridioides difficile tox in A+B tcdA+tcdB geneson 06-04-2023 C. difficile toxin A+B tcdA+tcdB genes DEYVI+probe Ql (Stl) Clostridioides difficile toxin A+B tcdA+tcdB genes Not Detected Normal Not Detected [facility] Comment on above: Order Comment: This test is an FDA-cleared real-time PCR assay for detection of toxigenic C. difficile DNA from unprocessed liquid or unformed stool specimens that have not undergone nucleic acid extraction in symptomatic patients with potential C. difficile infection (CDI). A positive result may indicate colonization, and clinical assessment is required for the diagnosis of CDI. This test cannot be performed on formed stools or used as a test of cure, and should not be performed more than once per 7 days. Performed By: #### 8 0685-1 #### SARA Osborne ([id number]) [facility] ([facility]) [address] [place] [address] Comprehensive metabolic 2000 panelon 06-04-2023 Albumin BCP dye [Mass/Vol] 4.8 g/dL Normal 3.4-5.0 [facility] Comment on above: Performed By: #### 2 4323-8 #### SARA Osborne ([id number]) [facility] ([facility]) [address] [place] [address] ALP [Catalytic activity/Vol] 54 U/L Normal 33-110 [facility] Comment on above: Performed By: #### 2 4323-8 #### SARA Osborne ([id number]) [facility] ([facility]) [address] [place] [address] ALT With P-5'-P [Catalytic activity/Vol] 31 U/L Normal 7-45 [facility] Comment on above: Result Comment: Yoselin ents treated with Sulfasalazine may generate falsely decreased results for ALT. Performed By: #### 2 4323-8 #### SARA Osborne ([id number]) [facility] ([facility]) [address] [place] [address] Anion gap [Moles/Vol] 14 mmol/L Normal 10-20 [facility] Comment on above: Performed By: #### 2 4323-8 #### SARA Osborne ([id number]) [facility] ([facility]) [address] [place] [address] AST With P-5'-P [Catalytic activity/Vol] 24 U/L Normal 9-39 [facility] Comment on above: Performed By: #### 2 4323-8 #### SARA Osborne ([id number]) [facility] ([facility]) [address] [place] [address] Bilirubin [Mass/Vol] 0.5 mg/dL Normal 0.0-1.2 [facility] Comment on above: Performed By: #### 2 4323-8 #### SARA Osborne (83924) [facility] ([facility]) [address] [place] [address] Calcium [Mass/Vol] 10.0 mg/dL Normal 8.6-10.6 [facility] Comment on above: Performed By: #### 2 4323-8 #### SARA Osborne (92798) [facility] ([facility]) [address] [place] [address] Chloride [Moles/Vol] 104 mmol/L Normal 98-107 [facility] Comment on above: Performed By: #### 2 4323-8 #### SARA Osborne ([id number]) [facility] ([facility]) [address] [place] [address] CO2 [Moles/Vol] 27 mmol/L Normal 21-32 [facility] Comment on above: Performed By: #### 2 4323-8 #### SARA Osborne ([id number]) [facility] ([facility]) [address] [place] [address] Creatinine [Mass/Vol] 0.59 mg/dL Normal 0.50-1.05 [facility] Comment on above: Performed By: #### 2 4323-8 #### SARA Osborne (91779) [facility] ([facility]) [address] [place] [address] 13081 GFR/1.73 sq M.predicted MDRD (S/P/Bld) [Vol rate/Area] mL/min/{1.73_m2} Normal >60 [facility] Comment on above: Result Comment: Calc ulations of estimated GFR are performed using the 2020 CKD-EPI Study Refit equation without the race variable for the IDMS-Traceable creatinine methods. https://jasn.asnjournals.org/content//ASN.620514694 8 Performed By: #### 2 4323-8 #### SARA Osborne ([id number]) [facility] ([facility]) [address] [place] [address] Glucose [Mass/Vol] 83 mg/dL Normal 74-99 [facility] Comment on above: Performed By: #### 2 4323-8 #### SARA Osborne ([id number]) [facility] ([facility]) [address] [place] [address] Potassium [Moles/Vol] 4.3 mmol/L Normal 3.5-5.3 [facility] Comment on above: Performed By: #### 2 4323-8 #### SARA Osborne ([id number]) [facility] ([facility]) [address] [place] [address] Protein [Mass/Vol] 7.2 g/dL Normal 6.4-8.2 [facility] Comment on above: Performed By: #### 2 4323-8 #### SARA PEREZ L (19693) [facility] ([facility]) [address] [place] [address] 546[address] Sodium [Moles/Vol] 141 mmol/L Normal 136-145 [facility] Comment on above: Performed By: #### 2 4323-8 #### SARA PEREZ L ([id number]) [facility] ([facility]) [address] [place] [address] 23093 Urea nitrogen [Mass/Vol] 21 mg/dL Normal 6-23 [facility] Comment on above: Performed By: #### 2 4323-8 #### SARA Osborne ([id number]) [facility] ([facility]) [address] [place] [address] 10963 Cryptosporidium sp Agon -0 Cryptosporidium sp Ag IA Ql (Stl) Negative Normal Negative [facility] Comment on above: Result Comment: Perf ormed By: [facility] [address] [place] [address] Carpentry Professional: Jelani Jones MD, PhD CLIA Number: [id number] Performed By: #### 6 371-9 #### [facility] [employer]) ([id number]) [address] [place] [address] Giardia lamblia Agon 024 G. lamblia Ag IA Ql (Stl) Negative Normal Negative [facility] Comment on above: Result Comment: Perf ormed By: [facility] [address] [place] [address] Carpentry Professional: Jelani Jones MD, PhD CLIA Number: [id number] Performed By: #### 6 412-1 #### [facility] ([facility] [employer]) ([id number]) [address] [place] [address] Lactoferrinon 06-04-2023 Lactoferrin IA Ql (Stl) Negative Normal Negative [facility] Comment on above: Result Comment: A ne gative result does not exclude the presence of intestinal inflammation. Performed By: [facility] [address] [place] [address] Carpentry Professional: Jelani Jones MD, PhD CLIA Number: [id number] Performed By: #### 4 0703-1 #### [facility]) ([id number]) [address] [place] [address] Ova AND parasites identified on 06-04-2023 Ova and parasites identified LM Nom (Stl) Negative Normal Negative [facility] Comment on above: Result Comment: INTERPRETIVE INFORMATION: Ova and Parasite, Fecal Method for identification of Ova and Parasites includes wet mount and trichrome stains. Due to the various shedding cycles of many parasites, three separate stool specimens collected over a 5-7-day period are recommended for ova and parasite examination. A single negative result does not rule out the possibility of a parasitic infection. The ova and parasite exam does not specifically detect Cryptosporidium, Cyclospora, Cystoisospora, and Microsporidia. For additional test information refer to [employer] consult, [email or web address]/content/diarrhea Performed By: [facility] [address] [place] [address] Carpentry Professional: Jelani Jones MD, PhD CLIA Number: [id number] Performed By: #### 1 0704-5 #### [facility]) ([id number]) [address] [place] [address] COMPREHENSIVE PANELon 2022 Albumin [Mass/Vol] 4.5 g/dL Normal 3.4 - 5.0 [facility] Comment on above: Performed By: #### C MP #### [facility] [address] [place] [address] ALP [Catalytic activity/Vol] 42 U/L Normal 33 - 110 [facility] Comment on above: Performed By: #### C MP #### [facility] [address] [place] [address] ALT [Catalytic activity/Vol] 60 U/L High 7 - 45 [facility] Comment on above: Result Comment: Yoselin ents treated with Sulfasalazine may generate falsely decreased results for ALT. Performed By: #### C MP #### [facility] [address] [place] [address] Anion gap [Moles/Vol] 13 mmol/L Normal 10 - 20 [facility] Comment on above: Performed By: #### C MP #### [facility] [address] [place] [address] AST [Catalytic activity/Vol] 32 U/L Normal 9 - 39 [facility] Comment on above: Performed By: #### C MP #### [facility] [address] [place] [address] Bilirubin [Mass/Vol] 0.6 mg/dL Normal 0.0 - 1.2 [facility] Comment on above: Performed By: #### C MP #### [facility] [address] [place] [address] Calcium [Mass/Vol] 9.4 mg/dL Normal 8.6 - 10.6 [facility] Comment on above: Performed By: #### C MP #### [facility] [address] [place] [address] Chloride [Moles/Vol] 104 mmol/L Normal 98 - 107 [facility] Comment on above: Performed By: #### C MP #### [facility] [address] [place] [address] Creatinine [Mass/Vol] 0.62 mg/dL Normal 0.50 - 1.05 [facility] Comment on above: Performed By: #### C MP #### [facility] [address] [place] [address] eGFR FEMALE >90 Normal >90 [facility] Comment on above: Result Comment: CALC ULATIONS OF ESTIMATED GFR ARE PERFORMED USING THE 2020 CKD-EPI STUDY REFIT EQUATION WITHOUT THE RACE VARIABLE FOR THE IDMS-TRACEABLE CREATININE METHODS. https://jasn.asnjournals.org/content//ASN.992316135 8 Performed By: #### C MP #### [facility] [address] [place] [address] Glucose [Mass/Vol] 82 mg/dL Normal 74 - 99 [facility] Comment on above: Performed By: #### C MP #### [facility] [address] [place] [address] HCO3 (Bld) [Moles/Vol] 28 mmol/L Normal 21 - 32 [facility] Comment on above: Performed By: #### C MP #### [facility] [address] [place] [address] Potassium [Moles/Vol] 4.5 mmol/L Normal 3.5 - 5.3 [facility] Comment on above: Performed By: #### C MP #### [facility] [address] [place] [address] Protein [Mass/Vol] 6.9 g/dL Normal 6.4 - 8.2 [facility] Comment on above: Performed By: #### C MP #### [facility] [address] [place] [address] Sodium [Moles/Vol] 140 mmol/L Normal 136 - 145 [facility] Comment on above: Performed By: #### C MP #### [facility] [address] [place] [address] Urea nitrogen [Mass/Vol] 19 mg/dL Normal 6 - 23 [facility] Comment on above: Performed By: #### C MP #### [facility] [address] [place] [address] HEPATITIS PANEL,ACUTE (HCFA) on 11-28-2022 HEPATITIS A AB-IGM Non-Reactive Normal NONREACTIVE [facility] Comment on above: Result Comment: Biot in interference may cause falsely decreased results. Patients taking a Biotin dose of up to 5 mg/day should refrain from taking Biotin for 24 hours before sample collection. Providers may contact their local laboratory for further information. Performed By: #### H EPA2 #### [facility] [address] [place] [address] HEPATITIS B CORE AB,IGM Non-Reactive Normal NONREACTIVE [facility] Comment on above: Result Comment: Resu lts from patients taking biotin supplements or receiving high-dose biotin therapy should be interpreted with caution due to possible interference with this test. Providers may contact their local laboratory for further information. Performed By: #### H EPA2 #### [facility] [address] [place] [address] HEPATITIS C AB Non-Reactive Normal NONREACTIVE [facility] Comment on above: Result Comment: Resu lts from patients taking biotin supplements or receiving high-dose biotin therapy should be interpreted with caution due to possible interference with this test. Providers may contact their local laboratory for further information. Performed By: #### H EPA2 #### [facility] [address] [place] [address] HEP.B SURFACE AG Non-Reactive Normal NONREACTIVE [facility] Comment on above: Result Comment: Biot in interference may cause falsely decreased results. Patients taking a Biotin dose of up to 5 mg/day should refrain from taking Biotin for 24 hours before sample collection. Providers may contact their local laboratory for further information. Performed By: #### H EPA2 #### [facility] [address] [place] [id number] Lab Specimen Source Normal [facility] Comment on above: Performed By: #### H EPA2 #### [facility] [address] [place] [id number] LIVERon 11-28-2022 LIVER Patient Name: ALBINO MARCH STUDY: US LIVER; 11/28/2022 8:01 am INDICATION: Elevated liver enzymes. COMPARISON: None. ACCESSION NUMBER(S): [id number] ORDERING CLINICIAN: ABIODUN STEPHENS TECHNIQUE: Multiple images of the right upper quadrant were obtained. FINDINGS: LIVER: Liver measures 15.6 cm with slightly heterogenous echotexture. Smooth outline. No definite focal lesions. GALLBLADDER: The gallbladder is nondistended demonstrates no evidence of gallstones, wall thickening or surrounding fluid. The gallbladder wall measures 2 mm. Sonographic Colón's sign is negative. BILIARY TREE: No intra or extrahepatic biliary dilatation is identified. The common bile duct measures 3 mm. PANCREAS: The visualized pancreas is unremarkable in appearance. RIGHT KIDNEY: The right kidney is normal in size, measuring 10.4 cm in craniocaudal dimension. The renal cortical echogenicity and thickness are within normal limits. No hydronephrosis or renal calculi are seen. Visualized portion of the aorta and IVC are unremarkable. IMPRESSION: 1. No acute right upper quadrant pathology. 2. Mildly heterogenous background hepatic echotexture could be related to underlying fatty changes or diffuse hepatocellular dysfunction. Advise clinical correlation MACRO: None Electronically signed by: JOHN PARDO MD Normal [facility] CBC AND DIFFERENTIALon 09-11 % AUTOMATED IMMATURE GRAN 0.2 % Normal 0.0 - 0.9 [facility] Comment on above: Result Comment: Kyra ture Granulocyte Count (IG) includes promyelocytes, myelocytes and metamyelocytes but does not include bands. Percent differential counts (%) should be interpreted in the context of the absolute cell counts (cells/L). Performed By: #### C BCDF #### [facility] [address] [place] [address] Basophils (Bld) [#/Vol] 0.04 10*3/uL Normal 0.00 - 0.10 [facility] Comment on above: Performed By: #### C BCDF #### [facility] [address] [place] [address] Basophils/100 WBC (Bld) 0.9 % Normal 0.0 - 2.0 [facility] Comment on above: Performed By: #### C BCDF #### [facility] [address] [place] [address] Eosinophils (Bld) [#/Vol] 0.16 10*3/uL Normal 0.00 - 0.70 [facility] Comment on above: Performed By: #### C BCDF #### [facility] [address] [place] [address] Eosinophils/100 WBC (Bld) 3.5 % Normal 0.0 - 6.0 [facility] Comment on above: Performed By: #### C BCDF #### [facility] [address] [place] [address] Erythrocyte distribution width (RBC) [Ratio] 12.9 % Normal 11.5 - 14.5 [facility] Comment on above: Performed By: #### C BCDF #### [facility] [address] [place] [address] Hematocrit (Bld) [Volume fraction] 45.5 % Normal 36.0 - 46.0 [facility] Comment on above: Performed By: #### C BCDF #### [facility] [address] [place] [address] Hemoglobin (Bld) [Mass/Vol] 14.2 g/dL Normal 12.0 - 16.0 [facility] Comment on above: Performed By: #### C BCDF #### [facility] [address] [place] [address] Lymphocytes (Bld) [#/Vol] 1.33 10*3/uL Normal 1.20 - 4.80 [facility] Comment on above: Performed By: #### C BCDF #### [facility] [address] [place] [address] Lymphocytes/100 WBC (Bld) 29.2 % Normal 13.0 - 44.0 [facility] Comment on above: Performed By: #### C BCDF #### [facility] [address] [place] [address] MCHC (RBC) [Mass/Vol] 31.2 g/dL Low 32.0 - 36.0 [facility] Comment on above: Performed By: #### C BCDF #### [facility] [address] [place] [address] MCV (RBC) [Entitic vol] 98 fL Normal 80 - 100 [facility] Comment on above: Performed By: #### C BCDF #### [facility] [address] [place] [address] Monocytes (Bld) [#/Vol] 0.49 10*3/uL Normal 0.10 - 1.00 [facility] Comment on above: Performed By: #### C BCDF #### [facility] [address] [place] [address] Monocytes/100 WBC (Bld) 10.7 % Normal 2.0 - 10.0 [facility] Comment on above: Performed By: #### C BCDF #### [facility] [address] [place] [address] Neutrophils (Bld) [#/Vol] 2.53 10*3/uL Normal 1.20 - 7.70 [facility] Comment on above: Performed By: #### C BCDF #### [facility] [address] [place] [address] Neutrophils/100 WBC (Bld) 55.5 % Normal 40.0 - 80.0 [facility] Comment on above: Performed By: #### C BCDF #### [facility] [address] [place] [address] NUCLEATED RBC 0.0 /100 WBC Normal 0.0-0.0 [facility] Comment on above: Performed By: #### C BCDF #### [facility] [address] [place] [address] Platelets (Bld) [#/Vol] 225 10*3/uL Normal 150 - 450 [facility] Comment on above: Performed By: #### C BCDF #### [facility] [address] [place] [address] RBC 4.64 x10E12/L Normal 4.00 - 5.20 [facility] Comment on above: Performed By: #### C BCDF #### [facility] [address] [place] [address] WBC (Bld) [#/Vol] 4.6 10*3/uL Normal 4.4 - 11.3 [facility] Comment on above: Performed By: #### C BCDF #### [facility] [address] [place] [address] COMPREHENSIVE PANELon 2022 Albumin [Mass/Vol] 4.3 g/dL Normal 3.4 - 5.0 [facility] Comment on above: Performed By: #### C MP #### [facility] [address] [place] [address] ALP [Catalytic activity/Vol] 58 U/L Normal 33 - 110 [facility] Comment on above: Performed By: #### C MP #### [facility] [address] [place] [address] ALT [Catalytic activity/Vol] 99 U/L High 7 - 45 [facility] Comment on above: Result Comment: Yoselin ents treated with Sulfasalazine may generate falsely decreased results for ALT. Performed By: #### C MP #### [facility] [address] [place] [address] Anion gap [Moles/Vol] 10 mmol/L Normal 10 - 20 [facility] Comment on above: Performed By: #### C MP #### [facility] [address] [place] [address] AST [Catalytic activity/Vol] 45 U/L High 9 - 39 [facility] Comment on above: Performed By: #### C MP #### [facility] [address] [place] [address] Bilirubin [Mass/Vol] 0.4 mg/dL Normal 0.0 - 1.2 [facility] Comment on above: Performed By: #### C MP #### [facility] [address] [place] [address] Calcium [Mass/Vol] 9.4 mg/dL Normal 8.6 - 10.6 [facility] Comment on above: Performed By: #### C MP #### [facility] [address] [place] [address] Chloride [Moles/Vol] 106 mmol/L Normal 98 - 107 [facility] Comment on above: Performed By: #### C MP #### [facility] [address] [place] [address] Creatinine [Mass/Vol] 0.66 mg/dL Normal 0.50 - 1.05 [facility] Comment on above: Performed By: #### C MP #### [facility] [address] [place] [address] eGFR FEMALE >90 Normal >90 [facility] Comment on above: Result Comment: CALC ULATIONS OF ESTIMATED GFR ARE PERFORMED USING THE 2020 CKD-EPI STUDY REFIT EQUATION WITHOUT THE RACE VARIABLE FOR THE IDMS-TRACEABLE CREATININE METHODS. https://jasn.asnjournals.org/content/early/ASN.[email or web address] Performed By: #### C MP #### [facility] [id number] [place] [address] Glucose [Mass/Vol] 88 mg/dL Normal 74 - 99 [facility] Comment on above: Performed By: #### C MP #### [facility] [address] [place] [address] HCO3 (Bld) [Moles/Vol] 29 mmol/L Normal 21 - 32 [facility] Comment on above: Performed By: #### C MP #### [facility] [address] [place] [address] Potassium [Moles/Vol] 4.4 mmol/L Normal 3.5 - 5.3 [facility] Comment on above: Performed By: #### C MP #### [facility] [address] [place] [address] Protein [Mass/Vol] 6.4 g/dL Normal 6.4 - 8.2 [facility] Comment on above: Performed By: #### C MP #### [facility] [address] [place] [address] Sodium [Moles/Vol] 141 mmol/L Normal 136 - 145 [facility] Comment on above: Performed By: #### C MP #### [facility] [address] [place] [address] Urea nitrogen [Mass/Vol] 22 mg/dL Normal 6 - 23 [facility] Comment on above: Performed By: #### C MP #### [facility] [address] [place] [address] LIPID PANEL (CORONARY RISK 2 )on 09-11-2022 Cholesterol [Mass/Vol] 214 mg/dL High 0 - 199 [facility] Comment on above: Result Comment: . AGE DESIRABLE BORDERLINE HIGH HIGH 0-19 Y 0 - 169 170 - 199 >/= 200 20-24 Y 0 - 189 190 - 224 >/= 225 >24 Y 0 - 199 200 - 239 >/= 240 All ranges are based on fasting samples. Specific therapeutic targets will vary based on patient-specific cardiac risk. . Pediatric guidelines reference:Pediatrics 2011, 128(S5). Adult guidelines reference: NCEP ATPIII Guidelines, TUSHAR 2001, 258:2486-97 . Venipuncture immediately after or during the administration of Metamizole may lead to falsely low results. Testing should be performed immediately prior to Metamizole dosing. Performed By: #### L IPID #### [facility] [address] [place] [address] Cholesterol in HDL [Mass/Vol] 86.4 mg/dL Normal [facility] Comment on above: Result Comment: . AGE VERY LOW LOW NORMAL HIGH 0-19 Y < 35 < 40 40-45 ---- 20-24 Y ---- < 40 >45 ---- >24 Y ---- < 40 40-60 >60 . Performed By: #### L IPID #### [facility] [address] [place] [address] Cholesterol in LDL [Mass/Vol] 120 mg/dL High 0 - 99 [facility] Comment on above: Result Comment: . NEAR BORD AGE DESIRABLE OPTIMAL HIGH HIGH VERY HIGH 0-19 Y 0 - 109 --- 110-129 >/= 130 ---- 20-24 Y 0 - 119 --- 120-159 >/= 160 ---- >24 Y 0 - 99 100-129 130-159 160-189 >/=190 . Performed By: #### L IPID #### [facility] [address] [place] [address] Cholesterol in VLDL [Mass/Vol] 8 mg/dL Normal 0 - 40 [facility] Comment on above: Performed By: #### L IPID #### [facility] [address] [place] [address] Cholesterol.total/ Cholesterol in HDL [Mass ratio] 2.5 {ratio} Normal [facility] Comment on above: Result Comment: REF VALUES DESIRABLE < 3.4 HIGH RISK > 5.0 Performed By: #### L IPID #### [facility] [address] [place] [address] Triglyceride [Mass/Vol] 38 mg/dL Normal 0 - 149 [facility] Comment on above: Result Comment: . AGE DESIRABLE BORDERLINE HIGH HIGH VERY HIGH 0 D-90 D 19 - 174 ---- ---- ---- 91 D- 9 Y 0 - 74 75 - 99 >/= 100 ---- 10-19 Y 0 - 89 90 - 129 >/= 130 ---- 20-24 Y 0 - 114 115 - 149 >/= 150 ---- >24 Y 0 - 149 150 - 199 200- 499 >/= 500 . Venipuncture immediately after or during the administration of Metamizole may lead to falsely low results. Testing should be performed immediately prior to Metamizole dosing. Performed By: #### L IPID #### [facility] [address] [place], [place] TSH WITH REFLEX TO FREE T4 I F ABNORMALon 09-11-2022 TSH Qn 2.19 m[IU]/L Normal 0.44 - 3.98 [facility] Comment on above: Result Comment: TSH testing is performed using different testing methodology at [facility] than at other [facility]. Direct result comparisons should only be made within the same method. Performed By: #### T HYDS #### [facility] [address] [place] [id number] Lab Specimen Source Normal [facility] Comment on above: Performed By: #### T HYDS #### [facility] [address] [place] [id number] Performed By: #### V TDOH #### [facility] [address] [place] [address] Performed By: #### C BCDF #### [facility] [address] [place] [id number] VITAMIN D, 25-HYDROXYon 08-28 VITAMIN D, 25-HYDROXY 68 ng/mL Normal [facility] Comment on above: Result Comment: . DEFICIENCY: < 20 NG/ML INSUFFICIENCY: 20-29 NG/ML SUFFICIENCY: 30-100 NG/ML THIS ASSAY ACCURATELY QUANTIFIES THE SUM OF VITAMIN D3, 25-HYDROXY AND VIT D2,25-HYDROXY. Performed By: #### V TDOH #### [facility] [address] [place], [place] DIGITAL DIAG MAMM BILAT WITH TOMOon 09-07-2022 DIGITAL DIAG MAMM BILAT WITH CLINTON Patient Name: ALBINO MARCH STUDY: DIGITAL DIAG MAMM BILAT WITH CLINTON; BREAST ULTRASOUND; 09/07/2022 9:42 am ACCESSION NUMBER(S): [id number]; [id number] ORDERING CLINICIAN: CARMINA MATTHEW INDICATION: Right nipple tenderness, with 1 instance of non spontaneous greenish nipple discharge. Annual screening of the left breast. Family history of breast cancer. COMPARISON: 11/07/2018, 11/09/2014, and 11/03/2014. FINDINGS: MAMMOGRAM: 2D and tomosynthesis images were reviewed at 1 mm slice thickness. The breast tissue is heterogeneously dense, which may obscure small masses. A radiopaque marker was placed on the skin at the site of the patient's palpable abnormality in the inferior/central right breast, within the subareolar region. No focal mammographic abnormality is seen underneath the radiopaque marker. No suspicious masses or calcifications are identified. ULTRASOUND: Targeted ultrasound was performed of the right breast subareolar region by a registered pipe processor using elastography. No sonographic abnormality at the area of the patient's tenderness. No abnormal flow visualized within the ducts. IMPRESSION: No mammographic or targeted sonographic evidence of malignancy. No imaging explanation for patient's right breast tenderness or nipple discharge. Recommend clinical follow-up. Recommend continued annual screening mammography. BI-RADS CATEGORY: Category: 1 - Negative. Recommendation: 1 Year Screening and clinical follow-up. For any future breast imaging appointments, please call [phone] ([phone]). Patient letter sent SNORMS I personally reviewed the images/study and I agree with the findings as stated. This study was interpreted at [place], [place]. Electronically signed by: JOHN CORNELIUS MD [facility] ULTRASOUND LIMITED BREASTon 09-07-2022 ULTRASOUND LIMITED BREAST Patient Name: ALBINO MARCH STUDY: DIGITAL DIAG MAMM BILAT WITH CLINTON; BREAST ULTRASOUND; 09/07/2022 9:42 am ACCESSION NUMBER(S): [id number]; [id number] ORDERING CLINICIAN: CARMINA MATTHEW INDICATION: Right nipple tenderness, with 1 instance of non spontaneous greenish nipple discharge. Annual screening of the left breast. Family history of breast cancer. COMPARISON: 11/07/2018, 11/09/2014, and 11/03/2014. FINDINGS: MAMMOGRAM: 2D and tomosynthesis images were reviewed at 1 mm slice thickness. The breast tissue is heterogeneously dense, which may obscure small masses. A radiopaque marker was placed on the skin at the site of the patient's palpable abnormality in the inferior/central right breast, within the subareolar region. No focal mammographic abnormality is seen underneath the radiopaque marker. No suspicious masses or calcifications are identified. ULTRASOUND: Targeted ultrasound was performed of the right breast subareolar region by a registered pipe processor using elastography. No sonographic abnormality at the area of the patient's tenderness. No abnormal flow visualized within the ducts. IMPRESSION: No mammographic or targeted sonographic evidence of malignancy. No imaging explanation for patient's right breast tenderness or nipple discharge. Recommend clinical follow-up. Recommend continued annual screening mammography. BI-RADS CATEGORY: Category: 1 - Negative. Recommendation: 1 Year Screening and clinical follow-up. For any future breast imaging appointments, please call [phone]). Patient letter sent SNORMS I personally reviewed the images/study and I agree with the findings as stated. This study was interpreted at [facility], [place], [place]. Electronically signed by: JOHN CORNELIUS MD Normal [facility] CT Abdomen and Pelvis withou t Contraston 02-23-2021 CT Abdomen and Pelvis WO contrast [facility] Work Phone: CT Abdomen and Pelvis WO contrast Please click on the link to view the study images Normal [facility] Work Phone: Complete Blood Count + Diffe rentialon 02-23-2021 Basophils/100 WBC (Bld) 1.3 % 0.0 - 2.0 [facility] [employer] Work Phone: Erythrocyte distribution width (RBC) [Ratio] 12.6 % See Below [facility] Work Phone: Comment on above: Reference Range: 11. 5 - 14.5 Hematocrit (Bld) [Volume fraction] 43.0 % See Below [facility] Work Phone: Comment on above: Reference Range: 36. 0 - 46.0 Hemoglobin (Bld) [Mass/Vol] 13.2 g/dL See Below [facility] Work Phone: Comment on above: Reference Range: 12. 0 - 16.0 Lymphocytes/100 WBC (Bld) 28.1 % See Below [facility] Work Phone: Comment on above: Reference Range: 13. 0 - 44.0 MCHC (RBC) [Mass/Vol] 30.7 g/dL below low threshold See Below [facility] Work Phone: Comment on above: Reference Range: 32. 0 - 36.0 MCV (RBC) [Entitic vol] 98 fL 80 - 100 [facility] Work Phone: Monocytes/100 WBC (Bld) 9.3 % 2.0 - 10.0 [facility] Work Phone: Neutrophils/100 WBC (Bld) 58.6 % See Below [facility] Work Phone: Comment on above: Reference Range: 40. 0 - 80.0 Platelets (Bld) [#/Vol] 232 10*3/uL 150 - 450 [facility] Work Phone: RBC (Bld) [#/Vol] 4.37 {x10E12/L} See Below [facility] Work Phone: Comment on above: Reference Range: 4.0 0 - 5.20 WBC (Bld) [#/Vol] 4.7 10*3/uL 4.4 - 11.3 [facility] Work Phone: Complete Blood Count + Differential 0.06 {x10E9/L} See Below [facility] Work Phone: Comment on above: Reference Range: 0.0 0 - 0.10 Complete Blood Count + Differential 0.12 {x10E9/L} See Below [facility] Work Phone: Comment on above: Reference Range: 0.0 0 - 0.70 Complete Blood Count + Differential 0.44 {x10E9/L} See Below [facility] Work Phone: Comment on above: Reference Range: 0.1 0 - 1.00 Complete Blood Count + Differential 1.33 {x10E9/L} See Below [facility] Work Phone: Comment on above: Reference Range: 1.2 0 - 4.80 Complete Blood Count + Differential 2.78 {x10E9/L} See Below [facility] Work Phone: Comment on above: Reference Range: 1.2 0 - 7.70 Complete Blood Count + Differential 2.5 % 0.0 - 6.0 [facility] Work Phone: Complete Blood Count + Differential 0.2 % 0.0 - 0.9 [facility] Work Phone: Comment on above: Immature Granulocyte Count (IG) includes promyelocytes, myelocytes and metamyelocytes but does not include bands. Percent differential counts (%) should be interpreted in the context of the absolute cell counts (cells/L). Complete Blood Count + Differential 0.0 {/100_WBC} 0.0-0.0 [facility] Work Phone: IO HCG, Urine Test on 02-23-2021 HCG ( test) Ql (U) Negative [facility] Work Phone: IO UA (automated w/ microsco py)on 02-23-2021 Protein (U) [Mass/Vol] Negative [facility] Work Phone: IO UA (automated w/ microscopy) 12 1 [facility] Work Phone: IO UA (automated w/ microscopy) Negative [facility] Work Phone: IO UA (automated w/ microscopy) Normal (0.2-1.0 mg/dl) [facility] Work Phone: IO UA (automated w/ microscopy) 6.5 1 [facility] Work Phone: IO UA (automated w/ microscopy) (++)moderate - 40 [facility] Work Phone: IO UA (automated w/ microscopy) 1.010 1 [facility] Work Phone: Laboratory - Chemistry and C hemistry - challengeon 02-23-2021 Albumin BCP dye [Mass/Vol] 4.6 g/dL 3.4 - 5.0 [facility] Work Phone: ALP [Catalytic activity/Vol] 44 U/L 33 - 110 [facility] Work Phone: ALT With P-5'-P [Catalytic activity/Vol] 17 U/L 7 - 45 [facility] Work Phone: Comment on above: Patients treated wit h Sulfasalazine may generate falsely decreased results for ALT. Anion gap [Moles/Vol] 12 mmol/L 10 - 20 [facility] Work Phone: AST With P-5'-P [Catalytic activity/Vol] 18 U/L 9 - 39 [facility] Work Phone: Bilirubin [Mass/Vol] 0.4 mg/dL 0.0 - 1.2 [facility] Work Phone: Calcium [Mass/Vol] 9.8 mg/dL 8.6 - 10.6 [facility] Work Phone: Chloride [Moles/Vol] 107 mmol/L 98 - 107 [facility] Work Phone: CO2 [Moles/Vol] 27 mmol/L 21 - 32 [facility] Work Phone: Creatinine [Mass/Vol] 0.75 mg/dL See Below [facility] Work Phone: Comment on above: Reference Range: 0.5 0 - 1.05 Glucose [Mass/Vol] 90 mg/dL 74 - 99 [facility] Work Phone: Potassium [Moles/Vol] 4.2 mmol/L 3.5 - 5.3 [facility] Work Phone: Protein [Mass/Vol] 6.9 g/dL 6.4 - 8.2 [facility] Work Phone: Sodium [Moles/Vol] 142 mmol/L 136 - 145 [facility] Work Phone: Urea nitrogen [Mass/Vol] 25 mg/dL above high threshold 6 - 23 [facility] Work Phone: No Panel Informationon 02-23 >60 >60 [facility] Work Phone: Comment on above: CALCULATIONS OF ARA MATED GFR ARE PERFORMED USING THE MDRD STUDY EQUATION FOR THE IDMS-TRACEABLE CREATININE METHODS. CLIN CHEM 2007;[id number]:[id number] Office Visit ([facility] giuliana)on 02-23-2021 Follow-up visit Diagnoses/Problems Hematuria (599.70) (R31.9) Abdominal pain, left lower quadrant (789.04) (R10.32) Orders Abdominal pain, left lower quadrant, Hematuria Complete Blood Count + Differential; Status:Resulted - Requires Verification,Retrospectiv e Authorization; Done: 23Feb2021 08:19AM Comprehensive Metabolic Panel; Status:Resulted - Requires Verification,Retrospectiv e Authorization; Done: 23Feb2021 08:19AM Patient Discussion/Summary Evaluating for hematuria with history of kidney stones and abdominal pain. CT urogram being performed for evaluation. Lab studies also being performed. Urine has been analyzed. Culture and sensitivity showed no significant growth of bacteria. Reviewed CT report. Renal lithiasis noted no evidence of obstruction noted. No other acute or bladder issues noted. Chief Complaint abdominal pressure, pain around the abdomen and back. History of Present Illness Frequency of urination. Patient with history of renal lithiasis. Patient's had troubles with frequency of urination. Pain in the left lower pelvis area. No fever no chills. No night sweats. Patient was treated for UTI start on ciprofloxacin. Symptoms have continued. No significant flank pain or discomfort. Getting some radiation of pain into the left lower abdomen. No nausea no vomiting. No change in stool habits no blood in the stool or black tarry stool. No fever or chills. Review of Systems Constitutional: no chills, not feeling poorly, not feeling tired, no fever and no night sweats. ENT: the ears do not feel full, no hearing loss and no tinnitus. Cardiovascular: the heart rate is not fast, the heart rate is not slow, no lower extremity edema and no orthopnea. Respiratory: no shortness of breath during exertion, no shortness of breath at rest and no wheezing. Gastrointestinal: no blood in stools, no dysphagia, no melena and no vomiting. Genitourinary: dysuria, urinary frequency and hematuria, but no incontinence. Active Problems Abnormal mammogram (793.80) (R92.8) Allergic rhinitis (477.9) (J30.9) Breast mass (611.72) (N63.0) Bronchitis, acute (466.0) (J20.9) Candidal dermatitis (112.3) (B37.2) Cystitis (595.9) (N30.90) Dysuria (788.1) (R30.0) Encounter for immunization (V03.89) (Z23) Hematuria (599.70) (R31.9) Retained tampon (939.2) (T19.2XXA) UTI symptoms (788.99) (R39.9) Visit for screening mammogram (V76.12) (Z12.31) Past Medical History History of Acute maxillary sinusitis (461.0) (J01.00) Resolved Date: 10 Oct 2018 History of Acute UTI (599.0) (N39.0) Resolved Date: 10 Oct 2018 History of abdominal pain (V13.89) (Z87.898) Resolved Date: 10 Oct 2018 History of acute sinusitis (V12.69) (Z87.09) Resolved Date: 10 Oct 2018 Added by Problem List Migration; 2013-01-19; Moved to [facility] Mar 26 2013 9:20PM History of conjunctivitis (V12.49) (Z86.69) Resolved Date: 10 Oct 2018 History of hematuria (V13.09) (Z87.448) Resolved Date: 10 Oct 2018 Surgical History Denied: History of Recent Surgery Family History No pertinent family history Social History Never a smoker Allergies No Known Drug Allergies Recorded By: Felisa Yung; 03/02/2014 1:08:20 PM Current Meds Medication NameInstructionReason Ciprofloxacin HCl - 500 MG Oral TabletTake 1 tablet twice dailyUTI symptoms Vitals Vital Signs Recorded: [id number] 07:40AM Qacdgnirwwx78.8 F Heart Rate60 Gzvmddqx667 Okbwyblih91 Ungwre437 lb BMI Oogbuiazpc48.43 kg/m2 BSA Calculated1.52 O2 Qptahphscu26 Physical Exam Constitutional: Alert and in no acute distress. Well developed, well nourished. Alert, active, nontoxic. Head and Face: Head and face: Normal. Palpation of the face and sinuses: Normal. Eyes: Pupils were equal in size, round, reactive to light (PERRL) with normal accommodation and extraocular movements intact (EOMI). Ophthalmoscopic examination: Normal. Cardiovascular: Heart rate and rhythm were normal, normal S1 and S2, no gallops, no murmurs and no pericardial rub. Pedal pulses: Normal. No peripheral edema. Pulmonary: No respiratory distress. Clear bilateral breath sounds. Abdomen: Abdomen: Abnormal. Some tenderness in the left lower abdomen with palpation. No organomegaly. Skin: Normal skin color and pigmentation, normal skin turgor, and no rash. Results/Data Complete Blood Count + [id number] 08:19Maribel Pickett Test NameResultFlagReference White Blood Cell Count4.7 x10E9/L4.4 - 11.3 Red Blood Cell Count4.37 x10E12/LSee Below Reference Range: 4.00 - 5.20 Nucleated Erythrocyte Count0.0 /100 WBC0.0-0.0 Bqqvqmurxm87.2 g/dLSee Below Reference Range: 12.0 - 16.0 HCT43.0 %See Below Reference Range: 36.0 - 46.0 MCV98 fL80 - 100 MCHC30.7 g/dLLSee Below Reference Range: 32.0 - 36.0 Platelet Vvyvm256 x10E9/L150 - 450 RDW-CV12.6 %See Below Reference Range: 11.5 - 14.5 Neutrophil %58.6 %See Below Reference Range: 40.0 - 80.0 % Automated Immature Gran0.2 (more content not included)... Normal [facility], Urineon 02-17-2021 Bacteria identified Cx Nom (U) [facility] [employer] Work Phone: Urinalysison 02-17-2021 Color (U) BERNARD See Below [facility] Work Phone: Comment on above: Reference Range: STR AW,YELLOWUA RESULTS Called- RB to TAYLER MICKEY, 02/18/2021 09:18 Glucose Ql (U) Negative NEGATIVE [facility] [employer] Work Phone: Comment on above: UA RESULTS Called- R B to TAYLER MICKEY, 02/18/2021 09:18 Ketones Ql (U) Negative NEGATIVE [facility] Work Phone: Comment on above: UA Called- RB to [place] LPA MICKEY, 02/18/2021 08:46 Leukocyte esterase Test strip Ql (U) Negative NEGATIVE [facility] Work Phone: Comment on above: UA Called- RB to [place] LPA MICKEY, 02/18/2021 08:46 pH (U) 6.0 [pH] 5.0 - 8.0 [facility] [employer] Work Phone: Comment on above: UA RESULTS Called- R B to TAYLER MICKEY, 02/18/2021 09:18 Protein (U) [Mass/Vol] Negative NEGATIVE [facility] [employer] Work Phone: Comment on above: UA RESULTS Called- R B to TAYLER MICKEY, 02/18/2021 09:18 RBC (U) [#/Vol] Negative NEGATIVE [facility] [employer] Work Phone: Comment on above: UA Called- RB to [place] LPA MICKEY, 02/18/2021 08:46 Specific gravity (U) [Rel density] 1.016 1 See Below [facility] Work Phone: Comment on above: Reference Range: 1.0 05 - 1.035UA RESULTS Called- RB to TAYLER MICKEY, 02/18/2021 09:18 Urinalysis Positive Abnormal NEGATIVE [facility] [employer] Work Phone: Comment on above: UA Called- RB to [place] LPA MICKEY, 02/18/2021 08:46 Urinalysis 4.0 mg/dL above high threshold 0.0 - 1.9 [facility] [employer] Work Phone: Comment on above: SOME PIGMENTS AND ME DICATIONS MAY CAUSE AFALSE POSITIVE UROBILINOGENUA Called- RB to TAYLER MICKEY, 02/18/2021 08:46 Urinalysis Negative NEGATIVE [facility] [employer] Work Phone: Comment on above: UA Called- RB to [place] LPA MICKEY, 02/18/2021 08:46 Urinalysis [facility]AR [facility] Work Phone: Comment on above: UA RESULTS Called- R B to TAYLER MICKEY, 02/18/2021 09:18 Urinalysis, Microscopicon Urinalysis, Microscopic 1+ Abnormal [facility] [employer] Work Phone: Comment on above: UA Called- RB to [place] LPA MICKEY, 02/18/2021 08:46 Urinalysis, Microscopic 1 {/HPF} [facility] Work Phone: Comment on above: UA Called- RB to [place] LPA MICKEY, 02/18/2021 08:46 Urinalysis, Microscopic 4 {/HPF} 0-5 [facility] Work Phone: Comment on above: UA Called- RB to [place] LPA MICKEY, 02/18/2021 08:46 Urinalysis, Microscopic None 0-5 [facility] [employer] [facility] [facility] Work Phone: Comment on above: UA Called- RB to [place] LPA MICKEY, 02/18/2021 08:46 Office Visit (Primary Care T xt/Forms)on 12-04-2020 Follow-up visit Diagnoses/Problems Assessed UTI symptoms (788.99) (R39.9) Orders UTI symptoms Start: Ciprofloxacin HCl - 500 MG Oral Tablet (Cipro); Take 1 tablet twice daily Provider Impressions Provider Impressions Free Text Note Form: Acute, uncomplicated at this time Will empirically tx for UTI Plan as per orders Counseled pt on possible adverse rxns associated w/ new med - pt ok w/ risks Instructed pt to make a f/u appt if symptoms worsen or fail to improve Counseled pt on warning signs of when to present to ER Chief Complaint An interactive audio and video telecommunication system which permits real time communications between the patient (at the originating site) and provider (at the distant site) was utilized to provide this telehealth service. Verbal consent was requested and obtained from ALBINO MARCH on this date, 12/04/2020 11:20 AM , for a telehealth visit. urinary frequency History of Present Illness Pt c/o urinary urgency and frequency Associated with suprapubic pain Denies dysuria This has been going on since this past Thurs H/o kidney stones in the past - denies blood in urine Denies fevers or chills Denies back pain Review of Systems A complete ROS is neg, except as stated above. Active Problems Problems Abnormal mammogram (793.80) (R92.8) Allergic rhinitis (477.9) (J30.9) Breast mass (611.72) (N63.0) Bronchitis, acute (466.0) (J20.9) Candidal dermatitis (112.3) (B37.2) Cystitis (595.9) (N30.90) Dysuria (788.1) (R30.0) Encounter for immunization (V03.89) (Z23) Hematuria (599.70) (R31.9) Retained tampon (939.2) (T19.2XXA) Visit for screening mammogram (V76.12) (Z12.31) Past Medical History Problems History of Abdominal pain, left lower quadrant (789.04) (R10.32) History of Acute maxillary sinusitis (461.0) (J01.00) History of Acute UTI (599.0) (N39.0) History of abdominal pain (V13.89) (Z87.898) History of acute sinusitis (V12.69) (Z87.09) History of conjunctivitis (V12.49) (Z86.69) History of hematuria (V13.09) (Z87.448) Surgical History Problems Denied: History of Recent Surgery Family History Multiple Family Members No pertinent family history Social History Problems Never a smoker Allergies Medication No Known Drug Allergies Physical Exam Constitutional - No acute distress. Non-toxic appearing. Head and Face - No visible facial rash. Pulmonary - No resp distress, able to speak full sentences. Cardiovascular - No visible edema. Neurologic - Alert, speech clear. Psychiatric - Cooperative. Signatures Electronically signed by : Castro Cummings MD; Dec 04 2020 10:14AM EST (Author) Normal Touch[facility] Office Visit (Primary Care T xt/Forms)on 06-23-2020 Follow-up visit Diagnoses/Problems Assessed Dysuria (788.1) (R30.0) Hematuria (599.70) (R31.9) Orders Dysuria Cult, Urine; Status:Active; Requested for:23Jun2020; Dysuria, Hematuria Start: Ciprofloxacin HCl - 500 MG Oral Tablet; Take 1 tablet twice daily Cult, Urine; Status:Active; Requested for:11Jul2020; IO UA (automated w/o microscopy); Status:Resulted - Requires Verification; Done: 23Jun2020 11:41AM Urinalysis; Status:Active; Requested for:11Jul2020; Provider Impressions Provider Impressions Free Text Note Form: Acute, uncomplicated at this time DDx: UTI vs Kidney stone Went over further testing and treatment options w/ pt Pt is travelling for work this week and would like to be empirically tx'ed for UTI Trial of Cipro - counseled pt on possible adverse rxns associated w/ new med - pt ok w/ risks Instructed pt to call office if symptoms worsen or don't resolve Counseled pt on warning signs of when to present to ER Instructed pt to repeat UA and UCx 1 week after last abx dose Chief Complaint Concern for UTI History of Present Illness This past Sunday afternoon has dysuria, supra-pubic pressure and gross blood in her urine Took Azo pills yesterday - this helped symptoms No more gross blood in her urine Denies fevers or chills Denies N/V Denies low back pain Of note, pt states to have a h/o UTIs and kidney stone Review of Systems A complete ROS is neg, except as stated above. Active Problems Problems Abnormal mammogram (793.80) (R92.8) Allergic rhinitis (477.9) (J30.9) Breast mass (611.72) (N63.0) Bronchitis, acute (466.0) (J20.9) Candidal dermatitis (112.3) (B37.2) Cystitis (595.9) (N30.90) Encounter for immunization (V03.89) (Z23) Hematuria (599.70) (R31.9) Retained tampon (939.2) (T19.2XXA) Visit for screening mammogram (V76.12) (Z12.31) Past Medical History Problems History of Abdominal pain, left lower quadrant (789.04) (R10.32) History of Acute maxillary sinusitis (461.0) (J01.00) History of Acute UTI (599.0) (N39.0) History of abdominal pain (V13.89) (Z87.898) History of acute sinusitis (V12.69) (Z87.09) History of conjunctivitis (V12.49) (Z86.69) History of hematuria (V13.09) (Z87.448) Surgical History Problems Denied: History of Recent Surgery Family History Multiple Family Members No pertinent family history Social History Problems Never a smoker Allergies Medication No Known Drug Allergies Vitals Vital Signs Recorded: 23Jun2020 11:32AM Heart Rate: 60 Systolic: 110 Diastolic: 64 Height: 5 ft 0.5 in Weight: 121 lb BMI Calculated: 23.24 BSA Calculated: 1.52 Physical Exam Constitutional - Well developed, well nourished, well hydrated and no acute distress. Vital signs reviewed. Head and Face - Normocephalic, atraumatic. Eyes - No redness, edema or visible abnormality of conjunctiva or lids. Pulmonary - No grunting, flaring or retractions. No rales or wheezing. Good air exchange. Cardiovascular - Regular rate and rhythm. No significant murmur. Genitourinary - No CVA tenderness. Neurologic - Alert, No focal deficits. Psychiatric - Cooperative. Results/Data IO UA (automated w/o microscopy)23Jun2020 11:41AMNURSE VISIT, [facility] Test NameResultFlagReference IO Glucose - UrineNegative IO BilirubinNegative IO KetonesNegative IO Specific Gravity1.010 IO BloodTrace IO pH7.0 IO Protein, UrineNegative IO Urobilinogen Normal (0.2-1.0 mg/dl) IO Nitrite, UrineNegative IO LeukocytesNegative IO Glucose - UrineNegative IO BilirubinNegative IO KetonesNegative IO Specific Gravity1.010 IO BloodTrace IO pH7.0 IO Protein, UrineNegative IO Urobilinogen Normal (0.2-1.0 mg/dl) IO Nitrite, UrineNegative IO LeukocytesNegative Signatures Electronically signed by : Catsro Cummings MD; Jun 23 2020 12:09PM EST (Author) [facility] Vital Signs Date Time Vital Sign Value Performing Clinician Facility 02-01-2025 01:32-0400 Body temperature 97.6 [degF] Dr. Jose Juan Beltran MD Work Phone: [phone] [place] [address] 02-01-2025 01:32-0400 Diastolic blood pressure 57 mm[Hg] Dr. Jose Juan Beltran MD Work Phone: [phone])[phone] [place] [address] 02-01-2025 01:32-0400 Heart rate 60 /min Dr. Jose Juan Beltran MD Work Phone: 2([phone] [place] [address] 02-01-2025 01:32-0400 Respiratory rate 18 /min Dr. Jose Juan Beltran MD Work Phone: 0([phone] [place] [address] 02-01-2025 01:32-0400 SaO2% (BldA) [Mass fraction] 98 % Dr. Jose Juan Beltran MD Work Phone: [phone])[phone] [place] [address] 02-01-2025 01:32-0400 Systolic blood pressure 99 mm[Hg] Dr. Jose Juan Beltran MD Work Phone: 4(056)[phone] [place] [address] 01-31-2025 22:59-0400 Body height 147.[address] Jose Juan Beltran MD Work Phone: 1([phone])[phone] [place] [address] 01-31-2025 22:59-0400 Body mass index (BMI) [Ratio] 26.2 kg/m2 Dr. Jose Juan Beltran MD Work Phone: [phone] [place] [address] 01-31-2025 22:59-0400 Body weight 56.[address] Jose Juan Beltran MD Work Phone: [facility] 06-30-2024 14:14-0500 Body height 152.4 cm Abiodun Stephens DO Work Phone: [facility] 06-30-2024 14:14-0500 Body mass index (BMI) [Ratio] 23.75 kg/m2 Abiodun Stephens DO Work Phone: [facility] 06-30-2024 14:14-0500 Body weight 55.16 kg Abiodun Stepehns DO Work Phone: [facility] 06-30-2024 14:14-0500 Diastolic blood pressure 70 mm[Hg] Abiodun Stephens DO Work Phone: [facility] 06-30-2024 14:14-0500 Heart rate 68 /min Abiodun Stephens DO Work Phone: [facility] 06-30-2024 14:14-0500 Systolic blood pressure 110 mm[Hg] Abiodun Stephens DO Work Phone: [facility] 03-17-2024 09:44-0500 Body mass index (BMI) [Ratio] 22.67 kg/m2 Abiodun Stephens DO Work Phone: [facility] 03-17-2024 09:44-0500 Body temperature 97.5 [degF] Abiodun Stephens DO Work Phone: [facility] 03-17-2024 09:44-0500 Body weight 53.52 kg Abiodun Stephens DO Work Phone: [facility] 03-17-2024 09:44-0500 Diastolic blood pressure 60 mm[Hg] Abiodun Stephens DO Work Phone: [facility] 03-17-2024 09:44-0500 Heart rate 71 /min Abiodun Stephens DO Work Phone: [facility] 03-17-2024 09:44-0500 Systolic blood pressure 102 mm[Hg] Abiodun Stephens DO Work Phone: [facility] 01-28-2024 08:29-0400 Body height 152.4 cm Noah Oquendo MD Work Phone: [facility] 01-28-2024 08:29-0400 Body mass index (BMI) [Ratio] 23.63 kg/m2 Noah Oquendo MD Work Phone: [facility] 01-28-2024 08:29-0400 Body weight 54.88 kg Noah Oquendo MD Work Phone: [facility] 08-16-2023 09:51-0400 Body height 153.7 cm Maribel Grecoomalic DO Work Phone: [facility] 08-16-2023 09:51-0400 Body mass index (BMI) [Ratio] 22.09 kg/m2 Maribel Kromalic DO Work Phone: [facility] 08-16-2023 09:51-0400 Body temperature 97.7 [degF] Maribel Kromalic DO Work Phone: [facility] 08-16-2023 09:51-0400 Body weight 52.16 kg Maribel Kromalic DO Work Phone: [facility] 08-16-2023 09:51-0400 Diastolic blood pressure 62 mm[Hg] Maribel Angusomalic DO Work Phone: [facility] 08-16-2023 09:51-0400 Heart rate 73 /min Maribel Grecoomalic DO Work Phone: [facility] 08-16-2023 09:51-0400 SaO2% (BldA) [Mass fraction] 100 % Maribel Grecoomalic DO Work Phone: [facility] 08-16-2023 09:51-0400 Systolic blood pressure 102 mm[Hg] Maribel Grecoomalic DO Work Phone: [facility] 06-04-2023 11:43-0500 Body mass index (BMI) [Ratio] 23.24 kg/m2 Carmina Matthew [employer]IST[employer] Work Phone: [facility] 06-04-2023 11:43-0500 Body weight 54.88 kg Carmina Matthew [employer]ENT [employer]IST[employer] Work Phone: [facility] 06-04-2023 11:43-0500 Diastolic blood pressure 77 mm[Hg] Carmina Matthew [employer]ENT [employer]IST[employer] Work Phone: [facility] 06-04-2023 11:43-0500 Heart rate 66 /min Carmina Tiff [employer]ENT [employer] SPECIALIST[employer] Work Phone: [facility] 06-04-2023 11:43-0500 Respiratory rate 16 /min Darinka Tiff PAT[employer] LAW SPECIALIST[employer] Work Phone: [facility] 06-04-2023 11:43-0500 SaO2% (BldA) [Mass fraction] 98 % Daralejandraa Tiff PATENT LAW SPECIALIST[employer] Work Phone: [facility] 06-04-2023 11:43-0500 Systolic blood pressure 122 mm[Hg] Daralejandraa Tiff PATENT LAW SPECIALIST-[employer] Work Phone: [facility] 05-02-2023 14:22-0500 Body mass index (BMI) [Ratio] 24.01 kg/m2 Darinka Tiff PATENT LAW SPECIALIST-[employer] Work Phone: [facility] 05-02-2023 14:22-0500 Body temperature 98.2 [degF] Darinka Tiff PATENT LAW SPECIALIST-[employer] Work Phone: [facility] 05-02-2023 14:22-0500 Body weight 56.7 kg Darinka Tiff PATENT LAW SPECIALIST-[employer] Work Phone: [facility] 05-02-2023 14:22-0500 Diastolic blood pressure 64 mm[Hg] Tamaraa Tiff PATENT LAW SPECIALIST-[employer] Work Phone: [facility] 05-02-2023 14:22-0500 Heart rate 76 /min Darinka Tiff PATENT LAW SPECIALIST[employer] Work Phone: [facility] 05-02-2023 14:22-0500 Respiratory rate 16 /min Darinka Tiff PATENT LAW SPECIALIST[employer] Work Phone: [facility] 05-02-2023 14:22-0500 SaO2% (BldA) [Mass fraction] 97 % Darinka Tiff PATENT LAW SPECIALIST-[employer] Work Phone: [facility] 05-02-2023 14:22-0500 Systolic blood pressure 101 mm[Hg] Darinka Tiff PATENT LAW SPECIALIST-[employer] Work Phone: [facility] 10-03-2022 10:30-0400 Body height 153.7 cm Abiodun Stephens DO Work Phone: [facility] 10-03-2022 10:30-0400 Body mass index (BMI) [Ratio] 23.51 kg/m2 Abiodun Stephens DO Work Phone: [facility] 10-03-2022 10:30-0400 Body weight 55.52 kg Abiodun Stephens DO Work Phone: [facility] 10-03-2022 10:30-0400 Diastolic blood pressure 62 mm[Hg] Abiodun Stephens DO Work Phone: [facility] 10-03-2022 10:30-0400 Heart rate 60 /min Abiodun Stephens DO Work Phone: [facility] 10-03-2022 10:30-0400 Systolic blood pressure 94 mm[Hg] Abiodun Stephens DO Work Phone: [facility] 08-18-2022 08:32-0400 Body height 152.4 cm Darinka Tiff PATENT [employer] SPECIALIST[employer] Work Phone: [facility] 08-18-2022 08:32-0400 Body mass index (BMI) [Ratio] 23.87 kg/m2 Darinka Tiff [employer]ENT LAW SPECIALIST[employer] Work Phone: [facility] 08-18-2022 08:32-0400 Body weight 55.43 kg Darinka Tiff PATENT LAW SPECIALIST[employer] Work Phone: [facility] 08-18-2022 08:32-0400 Diastolic blood pressure 60 mm[Hg] Darinka Tiff [employer]ENT [employer]IST[employer] Work Phone: [facility] 04-21-2023 08:32-0400 Heart rate 72 /min Carmina Matthew [employer]ENT [employer] SPECIALIST[employer] Work Phone: [facility] 08-18-2022 08:32-0400 Respiratory rate 18 /min Carmina Matthew [employer]ENT [employer]IST[employer] Work Phone: [facility] 08-18-2022 08:32-0400 SaO2% (BldA) [Mass fraction] 98 % Carmina Matthew [employer]ENT [employer] SPECIALIST[employer] Work Phone: [facility] 08-18-2022 08:32-0400 Systolic blood pressure 100 mm[Hg] Carmina Matthew [employer]ENT LAW SPECIALIST[employer] Work Phone: [facility] 02-23-2021 07:40-0400 Body mass index (BMI) [Ratio] 23.43 kg/m2 Maribel Jeffries Work Phone: [facility] Work Phone: 02-23-2021 07:40-0400 Body surface area Derived from formula 1.52 m2 Maribel Jeffries Work Phone: [facility] Work Phone: 02-23-2021 07:40-0400 Body temperature 97.8 [degF] Maribel Jeffries Work Phone: [facility] Work Phone: 02-23-2021 07:40-0400 Body weight 55.34 kg Maribel Jeffries Work Phone: [facility] Work Phone: 02-23-2021 07:40-0400 Diastolic blood pressure 70 mm[Hg] Maribel Jeffries Work Phone: [facility] Work Phone: 02-23-2021 07:40-0400 Heart rate 60 /min [facility] Work Phone: 02-23-2021 07:40-0400 SaO2% (BldA) [Mass fraction] 99 % [facility] Jeffries [facility] Work Phone: 02-23-2021 07:40-0400 Systolic blood pressure 102 mm[Hg] [facility] Jeffries [facility] Work Phone: Encounters Encounter Date Encounter Type Care Provider Facility Start: 02-18-2025 ambulatory Maribel Jeffries Facility: [facility] Start: 01-31-2025 End: 02-01-2025 Emergency department patient visit Dr. Jose Juan Beltran MD Work Phone: -Emergency Department Work Phone: Start: 08-05-2024 ambulatory MARIBEL JEFFRIES Facility:[facility] Start: 08-05-2024 End: 08-05-2024 Subsequent hospital visit by physician [facility] Comment on above: Encounter for screen ing mammogram for malignant neoplasm of breast [Z12.31] Start: 06-30-2024 End: 06-30-2024 ambulatory [facility] Start: 06-30-2024 End: 06-30-2024 Encounter for general adult medical examination without abnormal findings [facility] Start: 06-30-2024 End: 06-30-2024 Patient encounter status Abiodun Stephens DO Work Phone: [facility] Work Phone: Start: 06-30-2024 End: 06-30-2024 Periodic preventive med est patient 40-64yrs Abiodun Stephens DO Work Phone: [facility] Comment on above: Healthcare maintenan ce (Primary Dx); Familial hypercholesterolemia; Allergic rhinitis, unspecified seasonality, unspecified trigger; Menopause; Encounter for screening mammogram for malignant neoplasm of breast Start: 03-17-2024 End: 03-17-2024 Subsequent hospital visit by physician Kriss [address] [facility] Comment on above: Acute UTI; Hematuria, unspecified type Start: 03-17-2024 End: 03-17-2024 ambulatory [facility] Start: 03-17-2024 End: 03-17-2024 Office outpatient visit 25 minutes Abiodun Stephens DO Work Phone: [facility] Comment on above: Acute UTI (Primary D x); Hematuria, unspecified type; Menopause Start: 01-28-2024 End: 01-28-2024 [facility] Start: 01-28-2024 End: 01-28-2024 [facility] Start: 01-28-2024 End: 01-28-2024 Patient encounter procedure Noah Oquendo MD Work Phone: Gastroenterology Comment on above: Collagenous colitis (Primary Dx) Start: 11-05-2023 End: 11-05-2023 ambulatory [facility] Start: 08-16-2023 End: 08-16-2023 Office outpatient visit 25 minutes Maribel Jeffries DO Work Phone: [facility] Comment on above: Menopause (Primary D x); Diarrhea, unspecified type; Insomnia, unspecified type; Hyperlipidemia, unspecified hyperlipidemia type; Routine adult health maintenance Start: 08-16-2023 End: 08-16-2023 Patient encounter status Maribel Jeffries DO Work Phone: [facility] Start: 08-10-2023 End: 08-10-2023 ambulatory [facility] Start: 08-10-2023 End: 08-10-2023 Encounter for general adult medical examination without abnormal findings [facility] Start: 06-04-2023 End: 06-04-2023 ambulatory [facility] Start: 06-04-2023 End: 06-04-2023 Office outpatient visit 15 minutes Carmina Matthew [employer]IST[employer] Work Phone: [facility] Comment on above: Diarrhea, unspecifie d type (Primary Dx); Colon cancer screening Start: 05-02-2023 End: 05-02-2023 Office outpatient visit 15 minutes Carmina Matthew PATENT LAW SPECIALIST-[employer] Work Phone: [facility] Comment on above: Acute non-recurrent frontal sinusitis (Primary Dx) Start: 11-28-[address] Maribel Jeffries Facility:[id number] Start: 10-03-2022 End: 10-03-2022 Patient encounter status Abiodun Stephens DO Work Phone: [facility] Work Phone: Start: 10-03-2022 End: 10-03-2022 Periodic preventive med est patient 40-64yrs Abiodun Stephens DO Work Phone: [facility] Comment on above: Healthcare maintenan ce (Primary Dx); Screening for cervical cancer; Elevated liver enzymes Start: 09-07-2022 ambulatory Ms. Carmina Matthew Facility:[id number] Start: 08-18-2022 End: 08-18-2022 Office outpatient visit 15 minutes Carmina Matthew PATENT LAW SPECIALIST[employer] Work Phone: [facility] Comment on above: Breast pain, right; Encounter for screening mammogram for malignant neoplasm of breast Start: 03-07-2021 Chart Update [facility] nolasco [facility] Work Phone: Start: 03-01-2021 AUDIT Maribel nolasco Work Phone: [facility] Work Phone: Start: 02-24-2021 Chart Update Maribel nolasco Work Phone: [facility] Work Phone: Start: 02-24-2021 Chart Update Maribel nolasco Work Phone: [facility] Work Phone: Start: 02-23-2021 AUDIT Maribel nolasco Work Phone: [facility] Work Phone: Start: 02-23-2021 Office outpatient vi sit 25 minutes Maribel Jeffries Work Phone: [facility] Work Phone: Start: 02-23-2021 Patient encounter procedure Maribel Jeffries Work Phone: [facility] Work Phone: Start: 02-17-2021 AUDIT Maribel nolasco Work Phone: [facility] Work Phone: Start: 03-20-2019 Patient encounter procedure Maribel Grecoomalic DO [facility] Work Phone: Start: 03-13-2019 Patient encounter procedure Maribel Rodriguesic DO [facility] Work Phone: Start: 10-10-2018 Patient encounter procedure Maribel Grecoomalic DO [facility] Work Phone: Start: 07-19-2018 Patient encounter procedure Maribel Grecoomalic DO [facility] Work Phone: Start: 05-24-2018 Patient encounter procedure Maribel Grecoomalic DO [facility] Work Phone: Start: 04-19-2018 Patient encounter procedure Maribel Grecoomalic DO [facility] Work Phone: Start: 02-01-2018 Patient encounter procedure Maribel Jeffries DO -[facility] Work Phone: Procedures Date Procedure Procedure Detail Performing Clinician Start: 03-17-2024 Ct abdomen & pelvis w/o contrast material Abiodun Stephens DO Work Phone: Start: 03-17-2024 Urnls dip stick/tabl et rgnt auto w/o microscopy Abiodun Arlene Angelo DO Work Phone: Start: 01-28-2024 EXTRA ECOFIX CONTAIN ER PERFORMABLE Noah Oquendo MD Work Phone: Start: 01-28-2024 LAB EXTRA TUBES Noah Oquendo MD Work Phone: Start: 01-28-2024 Assay of calprotecti n fecal Noah Oquendo MD Work Phone: Start: 01-28-2024 Iaad ia giardia Noah Oquendo MD Work Phone: Start: 01-28-2024 Inf agent det nuclei c acid clostridium amp probe Noah Oquendo MD Work Phone: Start: 08-10-2023 CBC W Auto Different ial panel - Blood MARIBEL RODRIGUESPOONAM Start: 08-10-2023 Comprehensive metabo lic 2000 panel - Serum or Plasma MARIBEL JEFFRIES Start: 08-10-2023 FSH + LH MARIBEL GRECOOMA LIC Start: 08-10-2023 Lipid panel MARIBEL ANGUSOMA LIC Start: 08-10-2023 TSH WITH REFLEX TO F REE T4 IF ABNORMAL MARIBEL JEFFRIES Start: 08-10-2023 Lipid 1996 panel - S robert or Plasma Maribel Jeffries DO Work Phone: Start: 07-11-2023 Colonoscopy Maribel Grecooma lic DO Work Phone: Start: 06-04-2023 C. DIFFICILE, PCR MARIBEL GRECOOMALIC Start: 06-04-2023 CRYPTOSPORIDIUM ANTI GEN, STOOL MARIBEL GRECOOMALIC Start: 06-04-2023 GIARDIA ANTIGEN MARIBEL ANGUS OMALI Start: 06-04-2023 LACTOFERRIN, FECAL, QUANTITATIVE MARIBEL JEFFRIES Start: 06-04-2023 OVA AND PARASITE EXAMINATION MARIBEL JEFFRIES Start: 06-04-2023 OVA/PARA + GIARDIA/CRYPTOSPORIDIUM ANTIGEN MARIBEL JEFFRIES Start: 06-04-2023 CBC W Auto Different ial panel - Blood MARIBEL JEFFRIES Start: 06-04-2023 Comprehensive metabo lic 2000 panel - Serum or Plasma MARIBEL GRECOLUBNAPOONAM Start: 10-03-2022 Microscopic observat ion [Identifier] in Cervix by Cyto stain Carmina Matthew [employer]IST-[employer] Work Phone: Start: 09-11-2022 Lipid 1996 panel - S robert or Plasma Abiodun Stephens DO Work Phone: Start: 09-07-2022 Mammography Abiodun bender DO Work Phone: NEGATED: Highlighted row has not occurred! Denies Recent Surgery Maribel Jeffries Work Phone: Plan of Treatment Date Care Activity Detail Author Start: 07-10-2033 Screening for malign ant neoplasm of colon [facility] Start: 2031 RSV patient s and/or patients aged 60+ years (1 - 1-dose 60+ series) RSV patients and/or patients aged 60+ years (1 - 1-dose 60+ series) [facility] Start: 08-09-[address] [facility] Start: 09-12-2027 Lipid panel Lipid Panel [facility] Start: 01-27-2027 Diabetes Screening Diabetes Screenin [facility] Start: 10-03-2025 Screening for malign ant neoplasm of cervix [facility] Start: 02-01-2025 [facility] Start: 06-30-2024 End: 08-30-2025 DBT Breast - bilateral BI mammo bilateral screening tomosynthesis Imaging Routine Encounter for screening mammogram for malignant neoplasm of breast Expected: 06/30/2024, Expires: 08/30/[address] [facility] Service Area Work Phone: Comment on above: Expected: 06/30/2024 , Expires: 08/30/2025 Start: 04-14-2024 End: 04-14-2024 Patient encounter procedure 04/14/2024 9:40 AM EST Consult [facility] [address] [place] [id number] Leonardo Reese AmairaniDO [address] [place], [place] [id number] [facility] Start: 03-17-2024 End: 03-17-2025 CT Abdomen WO contrast [facility] Service Area Work Phone: Comment on above: Expected: 03/17/2024 , Expires: 03/17/2025 Start: 03-17-2024 End: 03-17-2025 Follitropin [Units/volume] in Serum or Plasma [facility] Work Phone: Comment on above: Expected: 03/17/2024 (Approximate), Expires: 03/17/2025 Start: 03-17-2024 End: 03-17-2025 Lutropin [Units/volume] in Serum or Plasma [facility] Work Phone: Comment on above: Expected: 03/17/2024 (Approximate), Expires: 03/17/2025 Start: 03-17-2024 Subsequent hospital visit by physician 03/17/2024 10:37 AM EST Hospital Encounter [facility] [address] [place] [address] Acute UTI; Hematuria, unspecified type [facility] Comment on above: Acute UTI; Hematuria, unspecified type Start: 12-30-2023 Covid-19 Vaccine ( season) Covid-[address] Vacc[address] () [facility] Start: 12-30-2023 Influenza vaccination [facility] Start: 11-15-2023 End: 08-15-2024 CT for calcium scoring WO contrast and CTA W contrast IV Heart and coronary arteries CT cardiac scoring wo IV contrast Imaging Routine Routine adult health maintenance Expected: 11/15/2023 (Approximate), Expires: 08/15/[address] [facility] Service Area Work Phone: Comment on above: Expected: 11/15/2023 (Approximate), Expires: 08/15/2024 Start: 10-05-2023 Yearly Adult Physical Yearly Adult P hysical [facility] Start: 09-08-2023 Screening for malign ant neoplasm of breast Mammogram [facility] Start: 06-04-2023 End: 12-03-2023 Bacteria identified in Stool by Culture Stool Culture, Test of Cure Microbiology Routine Diarrhea, unspecified type Expected: 06/04/2023 (Approximate), Expires: 12/03/2023 [facility] Work Phone: Comment on above: Expected: 06/04/2023 (Approximate), Expires: 12/03/2023 Start: 06-04-2023 End: 06-04-2024 CBC W Auto Differential panel - Blood [facility] Work Phone: Comment on above: Expected: 06/04/2023 (Approximate), Expires: 06/04/2024 Start: 06-04-2023 End: 06-11-2023 Clostridioides difficile toxin A+B tcdA+tcdB genes [Presence] in Stool by DEYVI with probe detection C. difficile, PCR Microbiology Routine Diarrhea, unspecified type Expected: 06/04/2023 (Approximate), Expires: 06/11/2023 [facility] Work Phone: Comment on above: Expected: 06/04/2023 (Approximate), Expires: 06/11/2023 Start: 06-04-2023 End: 06-04-2024 Comprehensive metabolic 2000 panel - Serum or Plasma [facility] Work Phone: Comment on above: Expected: 06/04/2023 (Approximate), Expires: 06/04/2024 Start: 06-04-2023 End: 06-04-2024 Lactoferrin [Presence] in Stool by Immunoassay Lactoferrin, Fecal, Quantitative Lab Routine Diarrhea, unspecified type Expected: 06/04/2023 (Approximate), Expires: 06/04/[address] [facility] Service Area Work Phone: Comment on above: Expected: 06/04/2023 (Approximate), Expires: 06/04/2024 Start: 06-04-2023 End: 12-03-2023 Ova/Para + Giardia/Cryptosporidium Antigen Ova/Para + Giardia/Cryptosporidium Antigen Lab Routine Diarrhea, unspecified type Expected: 06/04/2023 (Approximate), Expires: 12/03/2023 [facility] Work Phone: Comment on above: Expected: 06/04/2023 (Approximate), Expires: 12/03/2023 Start: 06-04-2023 End: 06-04-2023 ambulatory 06/04/2023 12:30 PM EST Lab [facility] Lab Services [facility] [address] [place] [phone] Diarrhea, unspecified type [facility] Lab [facility] Comment on above: Diarrhea, unspecifie d type Start: 12-29-2022 COVID-19 Vaccine ( season) COVID-[address] Vacc[address] () [facility] Start: 12-29-2022 Influenza vaccination [facility] Start: 10-03-2022 End: 10-04-2023 Acute hepatitis 2000 panel - Serum Hepatitis panel, acute Lab Routine Elevated liver enzymes Expected: 10/03/2022 (Approximate), Expires: 10/04/2023 [facility] Work Phone: Comment on above: Expected: 10/03/2022 (Approximate), Expires: 10/04/2023 Start: 10-03-2022 End: 10-04-2023 Comprehensive metabolic 2000 panel - Serum or Plasma Comprehensive metabolic panel Lab Routine Elevated liver enzymes Expected: 10/03/2022 (Approximate), Expires: 10/04/2023 [facility] Work Phone: Comment on above: Expected: 10/03/2022 (Approximate), Expires: 10/04/2023 Start: 10-03-2022 End: 10-04-2023 US Liver limited US abdomen limited liver Imaging Routine Elevated liver enzymes Expected: 10/03/2022, Expires: 10/04/2023 [facility] Work Phone: Comment on above: Expected: 10/03/2022 , Expires: 10/04/2023 Start: 08-18-2022 End: 10-19-2023 DBT Breast - bilateral BI mammo bilateral screening tomosynthesis Imaging Routine Encounter for screening mammogram for malignant neoplasm of breast Expected: 08/18/2022, Expires: 10/19/[address] [facility] Service Area Work Phone: Comment on above: Expected: 08/18/2022 , Expires: 10/19/2023 Start: 08-18-2022 End: 10-19-2023 US Breast - right BI US breast complete right Imaging Routine Breast pain, right Expected: 08/18/2022, Expires: 10/19/2023 [facility] Work Phone: Comment on above: Expected: 08/18/2022 , Expires: 10/19/2023 Start: 2021 Pneumococcal vaccination Pneum ococcal Vaccine (1 of 1 - PCV) [facility] Start: 2021 Pneumococcal Vaccine : 50+ (1 of 1 - PCV) Pneumococcal Vaccine: 50+ (1 of 1 - PCV) [facility] Start: 2021 Shingrix Vaccine (1 of 2) Shingrix Vaccine (1 of 2) [facility] Start: 2021 Zoster Vaccines (1 of 2) Zoste r Vaccines (1 of 2) [facility] Start: 11-08-2019 Screening for malign ant neoplasm of breast Mammogram Screening [facility] Start: 2016 Screening for malign ant neoplasm of colon [facility] Start: 2011 Screening for malign ant neoplasm of breast Mammogram [facility] Start: 1993 DTaP/Tdap/Td Vaccine s (1 - Tdap) DTaP/Tdap/Td Vaccines (1 - Tdap) [facility] Start: 1992 Screening for malign ant neoplasm of cervix [facility] Start: 1990 Hepatitis B Vaccine (1 of 3 - 19+ 3-dose series) Hepatitis B Vaccine (1 of 3 - 19+ 3-dose series) [facility] Start: 1990 Hepatitis B Vaccines (1 of 3 - 19+ 3-dose series) Hepatitis B Vaccines (1 of 3 - 19+ 3-dose series) [facility] Start: 1990 Urine microalbumin profile DTaP,Tdap,Td Vaccine (1 - Tdap) [facility] Start: 1989 Anxiety Screening Anxiety Screening [facility] Start: 1989 Depression Screening Depression Scre ening [facility] Start: 1989 Diabetes mellitus screening Diabetes Screening [facility] Start: 1989 Hepatitis C screening Hepatitis C Sc reening [facility] Start: 1989 HIV screening HIV Screening [facility] Start: 1972 MMR Vaccines (1 of 1 - Standard series) MMR Vaccines (1 of 1 - Standard series) [facility] Start: 1971 COVID-19 Vaccine (#1) COVID-19 Vacci ne (#1) [facility] Start: 1971 Hepatitis B Vaccines (1 of 3 - 3-dose series) Hepatitis B Vaccines (1 of 3 - 3-dose series) [facility] Start: 1971 HIV screening HIV Screening [facility] Start: 1971 Lipid panel Lipid Panel [facility] Start: 1971 Screening for malign ant neoplasm of colon [facility] Start: 1971 Yearly Adult Physical Yearly Adult P hysical [facility] Bacteria identified in Urine by Culture Urine Culture Microbiology Routine Acute UTI Hematuria, unspecified type 03/17/2024 10:[address] [facility] Work Phone: Breath hydrogen/meth ane test BREATH TEST - LACTULOSE Procedures Routine Collagenous colitis 1 Occurrences starting 01/28/2024 [facility] Work Phone: Comment on above: 1 Occurrences starti ng 01/28/2024 Cytology Cervical or vaginal smear or scraping study THINPREP PAP TEST Pathology and Cytology Routine Screening for cervical cancer Ordered: 10/03/[address] [facility] Service Area Work Phone: Comment on above: Ordered: 10/03/2022 Patient Education ED BPV [employer] [facility] Work Phone: Payers Date Payer Category Payer Private Health Insurance [id number] 2025 Self-pay 2023 Managed Care (Private) JENI CLINE [facility] PL[facility] [id number] 2023 Private Health Insurance [id number] 2023 Unknown [id number] 2022 Unknown 2022 Unknown [id number] 1971 Unknown [id number] 1971 Unknown [id number] 1971 Unknown [id number] 1971 Unknown [id number] 1971 Unknown [id number] 1971 Unknown [id number] 1971 Unknown [id number] 1971 Unknown [id number] Private Health Insurance [id number] Unknown [id number] Unknown [id number] Social History Date Type Detail Facility Start: 08-18-2022 End: 01-28-2024 [facility] a [facility]oker [facility]: Start: 08-18-2022 End: 01-31-2025 Tobacco smoking status NHIS Never smoked tobacco [facility] Work Phone: Start: 03-24-2016 End: 08-18-2022 Tobacco use and exposure Smokeless tobacco non-user [facility] Work Phone: Start: 08-18-2022 End: 06-30-2024 Alcohol intake Lifetime non-drinker (finding) [facility] Work Phone: Start: 08-18-2022 End: 01-28-[address] [facility] Work Phone: Start: 1970 [facility]: Start: 08-08-2022 End: 06-30-2024 Exposure to SARS-CoV-2 (event) Not sure [facility] Start: 01-28-2024 Alcoholic beverage intake Current non-drinker of alcohol (finding) [facility] National Score (1-100), lower number is lower risk 40 [facility] Start: 1970 Sex Assigned At Female [facility] NEGATED: Highlighted row - - [facility] Work Phone: NEGATED: Highlighted rowStart: MANOJF History of tobacco use Passive smoker [facility] Work Phone: Functional Status Date Assessment Result Facility NEGATED: Highlighted row Functional performance Functional status health issues are not documented Disease [facility] Work Phone: Mental Status Date Assessment Result Facility 01-31-2025 Cognitive function Level Of Cons ciousness Awake [facility] Work Phone: NEGATED: Highlighted row Cognitive function [Interpretation] Cognitive status health issues are not documented Disease [facility] Work Phone: Clinical Notes 08-18-2022 to 02-01-2025 Jun Reynolds RT(R) - 08/05/2024 9:40 AM Nasrin Stephens DO - 06/30/2024 2:00 PM Belinda Stephens DO - 03/17/2024 9:40 AM Noah Márquez MD - 01/28/2024 8:30 AM EDTPatient Instructions Note Date & Type Note Facility 02-01-2025 Discharge summary [facility] 08-05-2024 History of Present illness Narrative Radiology Service Progress Note PATIENT NAME: Albino March DATE OF SERVICE: August 05, 2024 TIME: 10:07 AM PATIENT IDENTITY VERIFICATION COMPLETED USING TWO (2) IDENTIFIERS: Name and Date of confirmed by patient verbally. FALL SCREENING: Has the patient had 2 falls in the last year or 1 fall with injury or currently using an Ambulatory Assistive Device (Walker, Cane, Wheelchair, Crutches, etc.)? No PATIENT GENDER DATA: Assigned female at . status: : No status: NO. PATIENT RELEVANT IMPLANT DATA REVIEWED: Yes PATIENT PRESENTS WITH AN IMPLANTABLE OR ATTACHED CUMULATIVE EFFECTS ANALYST: No RADIOLOGY DEPARTMENT: Mammography PERIPHERAL IV DATA: Not applicable SIGNED BY: RT Steven(R) August 05, 2024 10:07 AM documented in this encounter [facility] 08-05-2024 Note HNO ID: [id number] Author: JUN REYNOLDS RT(R) Service: ? Author Type: Technologist Type: Progress Notes Filed: 08/05/2024 10:08 Note Text: Radiology Service Progress Note PATIENT NAME: Albino March DATE OF SERVICE: August 05, 2024 TIME: 10:07 AM PATIENT IDENTITY VERIFICATION COMPLETED USING TWO (2) IDENTIFIERS: Name and Date of confirmed by patient verbally. FALL SCREENING: Has the patient had 2 falls in the last year or 1 fall with injury or currently using an Ambulatory Assistive Device (Walker, Cane, Wheelchair, Crutches, etc.)? No PATIENT GENDER DATA: Assigned female at . status: : No status: NO. PATIENT RELEVANT IMPLANT DATA REVIEWED: Yes PATIENT PRESENTS WITH AN IMPLANTABLE OR ATTACHED CUMULATIVE EFFECTS ANALYST: No RADIOLOGY DEPARTMENT: Mammography PERIPHERAL IV DATA: Not applicable SIGNED BY: RT Steven(R) August 05, 2024 10:07 AM [facility] 06-30-2024 History of Present illness Narrative Subjective Patient ID: Albino March is a 54 y.o. female who presents for Annual Exam. HPI Patient presents for physical exam. She was diagnosed with microscopic colitis. She has been going to [facility]. She is on probiotic. She is off magnesium. She is on GI powder for one month then off. F told her it is autoimmune for her microscopic colitis. Fam Hx Mom () living, Dad () living, Brother () living, Exercise walks ETOH denies Caffeine denies Tobacco denies Mammogram due 2024 DEXA @ [address] Traore due Patient denies other complaints. Review of Systems Constitutional: Negative for activity change, appetite change, fatigue and fever. HENT: Negative for congestion. Respiratory: Negative for cough, choking and chest tightness. Cardiovascular: Negative for chest pain, palpitations and leg swelling. Musculoskeletal: Negative for arthralgias, back pain and gait problem. Skin: Negative for color change and pallor. Neurological: Negative for dizziness, facial asymmetry, light-headedness and headaches. Objective BP 110/70 (BP Location: Left arm, Patient Position: Sitting) Pulse 68 Ht 1.524 m (5') Wt 55.2 kg (121 lb 9.6 oz) BMI 23.75 kg/m BSA Body surface area is 1.53 meters squared. Physical Exam Exam conducted with a teacher adult education present. Constitutional: General: She is not in acute distress. Appearance: Normal appearance. She is not toxic-appearing. HENT: Head: Normocephalic. Right Ear: Tympanic membrane, ear canal and external ear normal. Left Ear: Tympanic membrane, ear canal and external ear normal. Nose: Nose normal. Mouth/Throat: Pharynx: Oropharynx is clear. Eyes: Conjunctiva/sclera: Conjunctivae normal. Pupils: Pupils are equal, round, and reactive to light. Cardiovascular: Rate and Rhythm: Normal rate and regular rhythm. Pulses: Normal pulses. Heart sounds: Normal heart sounds. Pulmonary: Effort: No respiratory distress. Breath sounds: No wheezing, rhonchi or rales. Chest: Chest wall: No mass. Breasts: Right: No swelling or bleeding. Left: No swelling or bleeding. Abdominal: General: Bowel sounds are normal. There is no distension. Palpations: Abdomen is soft. Tenderness: There is no abdominal tenderness. Genitourinary: General: Normal vulva. Exam position: Lithotomy position. Pubic Area: No rash. Labia: Right: No rash. Left: No rash. Vagina: No signs of injury. No vaginal discharge. Cervix: No cervical motion tenderness or erythema. Adnexa: Right: No mass. Left: No mass. Musculoskeletal: General: No swelling or tenderness. Cervical back: No tenderness. Lymphadenopathy: Upper Body: Right upper body: No supraclavicular adenopathy. Left upper body: No supraclavicular adenopathy. Skin: Findings: No lesion or rash. Neurological: General: No focal deficit present. Mental Status: She is alert and oriented to person, place, and time. Mental status is at baseline. Gait: Gait normal. Psychiatric: Mood and Affect: Mood normal. Behavior: Behavior normal. Thought Content: Thought content normal. Judgment: Judgment normal. Lab on 03/17/2024 Component Date Value Ref Range Status Follicle Stimulating Hormone 03/17/2024 103.9 IU/L Final FSH Ref Values Follicular 2.0-12.0 IU/L Mid-Cycle 12.0-25.0 IU/L Luteal Phase 2.0-12.0 IU/L Menopause 30.0-150.0 IU/L Pre-puberty 50% Adult IU/L Adult Male 2.0-10.0 IU/L Infants 0.0-1.0 IU/L Luteinizing Hormone 03/17/2024 53.5 IU/L Final LH Reference Values Follicular Phase 1.9-12.5 IU/L Mid-Cycle 8.7-76.3 IU/L Luteal Phase 0.5-16.9 IU/L Post Menopause 5.0-55.2 IU/L Children 0- 6.0 IU/L Adult Male 18-70 years 1.5- 9.3 IU/L Adult Male >70 years 3.1-34.6 IU/L Office Visit on 03/17/2024 Component Date Value Ref Range Status POC Glucose, Urine 03/17/2024 NEGATIVE NEGATIVE mg/dl Final 3 rbc/hpf urine culture sent POC Bilirubin, Urine 03/17/2024 NEGATIVE NEGATIVE Final POC Ketones, Urine 03/17/2024 NEGATIVE NEGATIVE mg/dl Final POC Specific [place], Urine 03/17/2024 1.020 1.005 - 1.035 Final POC Blood, Urine 03/17/2024 TRACE-Intact (A) NEGATIVE Final POC PH, Urine 03/17/2024 7.0 No Reference Range Established PH Final POC Protein, Urine 03/17/2024 NEGATIVE NEGATIVE, 30 (1+) mg/dl Final POC Urobilinogen, Urine 03/17/2024 0.2 0.2, 1.0 EU/DL Final Poc Nitrite, Urine 03/17/2024 NEGATIVE NEGATIVE Final POC Leukocytes, Urine 03/17/2024 NEGATIVE NEGATIVE Final Urine Culture 03/17/2024 No growth Final Lab on 08/10/2023 Component Date Value Ref Range Status WBC 08/10/2023 4.0 (L) 4.4 - 11.3 x10*3/uL Final nRBC 08/10/2023 0.0 0.0 - 0.0 /100 WBCs Final RBC 08/10/2023 4.38 4.00 - 5.20 x10*6/uL Final Hemoglobin 08/10/2023 13.4 12.0 - 16.0 g/dL Final Hematocrit 08/10/2023 42.9 36.0 - 46.0 % Final MCV 08/10/2023 98 80 - 100 fL Final MCH 08/10/2023 30.6 26.0 - 34.0 pg Final MCHC 08/10/2023 31.2 (L) 32.0 - 36.0 g/dL Final RDW 08/10/2023 12.5 11.5 - 14.5 % Final Platelets 08/10/2023 225 150 - 450 x10*3/uL Final Neutrophils % 08/10/2023 48.6 40.0 - 80.0 % Final Immature Granulocytes %, Automated 08/10/2023 0.3 0.0 - 0.9 % Final Immature Granulocyte Count (IG) includes promyelocytes, myelocytes and metamyelocytes but does not include bands. Percent differential counts (%) should be interpreted in the context of the absolute cell counts (cells/UL). Lymphocytes % 08/10/2023 36.3 13.0 - 44.0 % Final Monocytes % 08/10/2023 10.5 2.0 - 10.0 % Final Eosinophils % 08/10/2023 3.0 0.0 - 6.0 % Final Basophils % 08/10/2023 1.3 0.0 - 2.0 % Final Neutrophils Absolute 08/10/2023 1.94 1.20 - 7.70 x10*3/uL Final Percent differential counts (%) should be interpreted in the context of the absolute cell counts (cells/uL). Immature Granulocytes Absolute, Au* 08/10/2023 0.01 0.00 - 0.70 x10*3/uL Final Lymphocytes Absolute 08/10/2023 1.45 1.20 - 4.80 x10*3/uL Final Monocytes Absolute 08/10/2023 0.42 0.10 - 1.00 x10*3/uL Final Eosinophils Absolute 08/10/2023 0.12 0.00 - 0.70 x10*3/uL Final Basophils Absolute 08/10/2023 0.05 0.00 - 0.10 x10*3/uL Final Glucose 08/10/2023 78 74 - 99 mg/dL Final Sodium 08/10/2023 140 136 - 145 mmol/L Final Potassium 08/10/2023 4.2 3.5 - 5.3 mmol/L Final Chloride 08/10/2023 104 98 - 107 mmol/L Final Bicarbonate 08/10/2023 29 21 - 32 mmol/L Final Anion Gap 08/10/2023 11 10 - 20 mmol/L Final Urea Nitrogen 08/10/2023 24 (H) 6 - 23 mg/dL Final Creatinine 08/10/2023 0.30 (L) 0.50 - 1.05 mg/dL Final eGFR 08/10/2023 >90 >60 mL/min/1.73m*2 Final Calculations of estimated GFR are performed using the 2020 CKD-EPI Study Refit equation without the race variable for the IDMS-Traceable creatinine methods. https://jasn.asnjournals.org/mian nt/early//ASN.3642233585 Calcium 08/10/2023 9.6 8.6 - 10.6 mg/dL Final Albumin 08/10/2023 4.3 3.4 - 5.0 g/dL Final Alkaline Phosphatase 08/10/2023 48 33 - 110 U/L Final Total Protein 08/10/2023 6.6 6.4 - 8.2 g/dL Final AST 08/10/2023 24 9 - 39 U/L Final Bilirubin, Total 08/10/2023 0.5 0.0 - 1.2 mg/dL Final ALT 08/10/2023 37 7 - 45 U/L Final Patients treated with Sulfasalazine may generate falsely decreased results for ALT. Cholesterol 08/10/2023 218 (H) 0 - 199 mg/dL Final Age Desirable Borderline High High 0-19 Y 0 - 169 170 - 199 >/= 200 20-24 Y 0 - 189 190 - 224 >/= 225 >24 Y 0 - 199 200 - 239 >/= 240 All ranges are based on fasting samples. Specific therapeutic targets will vary based on patient-specific cardiac risk. Pediatric guidelines reference:Pediatrics 2011, 128(S5).Adult guidelines reference: NCEP ATPIII Guidelines,TUSHAR 2001, 258:2486-97 Venipuncture immediately after or during the administration of Metamizole may lead to falsely low results. Testing should be performed immediately prior to Metamizole dosing. HDL-Cholesterol 08/10/2023 101.6 mg/dL Final Age Very Low Low Normal High 0-19 Y < 35 < 40 40-45 ---- 20-24 Y ---- < 40 >45 ---- >24 Y ---- < 40 40-60 >60 Cholesterol/HDL Ratio 08/10/2023 2.1 Final Ref Values Desirable < 3.4 High Risk > 5.0 LDL Calculated 08/10/2023 108 (H) <=99 mg/dL Final Near Borderline AGE Desirable Optimal High High Very High 0-19 Y 0 - 109 --- 110-129 >/= 130 ---- 20-24 Y 0 - 119 --- 120-159 >/= 160 ---- >24 Y 0 - 99 100-129 130-159 160-189 >/=190 VLDL 08/10/2023 8 0 - 40 mg/dL Final Triglycerides 08/10/2023 41 0 - 149 mg/dL Final Age Desirable Borderline High High Very High 0 D-90 D 19 - 174 ---- ---- ---- 91 D- 9 Y 0 - 74 75 - 99 >/= 100 ---- 10-19 Y 0 - 89 90 - 129 >/= 130 ---- 20-24 Y 0 - 114 115 - 149 >/= 150 ---- >24 Y 0 - 149 150 - 199 200- 499 >/= 500 Venipuncture immediately after or during the administration of Metamizole may lead to falsely low results. Testing should be performed immediately prior to Metamizole dosing. Non HDL Cholesterol 08/10/2023 116 0 - 149 mg/dL Final Age Desirable Borderline High High Very High 0-19 Y 0 - 119 120 - 144 >/= 145 >/= 160 20-24 Y 0 - 149 150 - 189 >/= 190 ---- >24 Y 30 mg/dL above LDL Cholesterol goal Thyroid Stimulating Hormone 08/10/2023 2.01 0.44 - 3.98 mIU/L Final Follicle Stimulating Hormone 08/10/2023 90.5 IU/L Final FSH Ref Values Follicular 2.0-12.0 IU/L Mid-Cycle 12.0-25.0 IU/L Luteal Phase 2.0-12.0 IU/L Menopause 30.0-150.0 IU/L Pre-puberty 50% Adult IU/L Adult Male 2.0-10.0 IU/L Infants 0.0-1.0 IU/L Luteinizing Hormone 08/10/2023 68.8 IU/L Final LH Reference Values Follicular Phase 1.9-12.5 IU/L Mid-Cycle 8.7-76.3 IU/L Luteal Phase 0.5-16.9 IU/L Post Menopause 5.0-55.2 IU/L Children 0- 6.0 IU/L Adult Male 18-70 years 1.5- 9.3 IU/L Adult Male >70 years 3.1-34.6 IU/L No current outpatient medications on file prior to visit. No current facility-administered medications on file prior to visit. No images are attached to the encounter. Assessment/Plan Diagnoses and all orders for this visit: Healthcare maintenance Familial hypercholesterolemia Allergic rhinitis, unspecified seasonality, unspecified trigger Menopause Encounter for screening mammogram for malignant neoplasm of breast - BI mammo bilateral screening tomosynthesis; Future 1. Patient's blood work unavailable at this office visit 2. Patient's LDL goal less than 130 current LDL available 3. Patient's liver enzymes been elevated in the past currently unavailable 4. Mammogram due 2024 5. DEXA @ 66 6. Colonoscopy -2023 Dr. Traore due 7. Patient to call if questions or concerns documented in this encounter [facility] Work Phone: 03-17-2024 History of Present illness Narrative Subjective Patient ID: Albino March is a 53 y.o. female who presents for Possible uti (Urinary burning, urgency, frequency, low back pain. X last Sunday. ). HPI Patient reports she has had urinary urgency burning frequency acute low back pain since last Sunday. Denies any fever chills denies any nausea vomiting diarrhea constipation. Review of Systems Constitutional: Negative for activity change, appetite change, fatigue and fever. HENT: Negative for congestion. Respiratory: Negative for cough, choking and chest tightness. Cardiovascular: Negative for chest pain, palpitations and leg swelling. Genitourinary: Positive for decreased urine volume, dysuria, frequency and urgency. Negative for difficulty urinating, flank pain and hematuria. Musculoskeletal: Positive for back pain. Negative for arthralgias and gait problem. Skin: Negative for color change and pallor. Neurological: Negative for dizziness, facial asymmetry, light-headedness and headaches. Objective BP 102/60 (BP Location: Right arm, Patient Position: Sitting) Pulse 71 Temp 36.4 C (97.5 F) Wt 53.5 kg (118 lb) BMI 22.67 kg/m BSA Body surface area is 1.51 meters squared. Physical Exam Constitutional: Appearance: Normal appearance. HENT: Head: Normocephalic and atraumatic. Cardiovascular: Rate and Rhythm: Normal rate and regular rhythm. Heart sounds: Normal heart sounds. Pulmonary: Effort: Pulmonary effort is normal. No respiratory distress. Breath sounds: Normal breath sounds. Abdominal: General: Abdomen is flat. Palpations: Abdomen is soft. Tenderness: There is abdominal tenderness. There is no right CVA tenderness or left CVA tenderness. Neurological: Mental Status: She is alert and oriented to person, place, and time. Mental status is at baseline. Psychiatric: Behavior: Behavior normal. Lab on 08/10/2023 Component Date Value Ref Range Status WBC 08/10/2023 4.0 (L) 4.4 - 11.3 x10*3/uL Final nRBC 08/10/2023 0.0 0.0 - 0.0 /100 WBCs Final RBC 08/10/2023 4.38 4.00 - 5.20 x10*6/uL Final Hemoglobin 08/10/2023 13.4 12.0 - 16.0 g/dL Final Hematocrit 08/10/2023 42.9 36.0 - 46.0 % Final MCV 08/10/2023 98 80 - 100 fL Final MCH 08/10/2023 30.6 26.0 - 34.0 pg Final MCHC 08/10/2023 31.2 (L) 32.0 - 36.0 g/dL Final RDW 08/10/2023 12.5 11.5 - 14.5 % Final Platelets 08/10/2023 225 150 - 450 x10*3/uL Final Neutrophils % 08/10/2023 48.6 40.0 - 80.0 % Final Immature Granulocytes %, Automated 08/10/2023 0.3 0.0 - 0.9 % Final Immature Granulocyte Count (IG) includes promyelocytes, myelocytes and metamyelocytes but does not include bands. Percent differential counts (%) should be interpreted in the context of the absolute cell counts (cells/UL). Lymphocytes % 08/10/2023 36.3 13.0 - 44.0 % Final Monocytes % 08/10/2023 10.5 2.0 - 10.0 % Final Eosinophils % 08/10/2023 3.0 0.0 - 6.0 % Final Basophils % 08/10/2023 1.3 0.0 - 2.0 % Final Neutrophils Absolute 08/10/2023 1.94 1.20 - 7.70 x10*3/uL Final Percent differential counts (%) should be interpreted in the context of the absolute cell counts (cells/uL). Immature Granulocytes Absolute, Au* 08/10/2023 0.01 0.00 - 0.70 x10*3/uL Final Lymphocytes Absolute 08/10/2023 1.45 1.20 - 4.80 x10*3/uL Final Monocytes Absolute 08/10/2023 0.42 0.10 - 1.00 x10*3/uL Final Eosinophils Absolute 08/10/2023 0.12 0.00 - 0.70 x10*3/uL Final Basophils Absolute 08/10/2023 0.05 0.00 - 0.10 x10*3/uL Final Glucose 08/10/2023 78 74 - 99 mg/dL Final Sodium 08/10/2023 140 136 - 145 mmol/L Final Potassium 08/10/2023 4.2 3.5 - 5.3 mmol/L Final Chloride 08/10/2023 104 98 - 107 mmol/L Final Bicarbonate 08/10/2023 29 21 - 32 mmol/L Final Anion Gap 08/10/2023 11 10 - 20 mmol/L Final Urea Nitrogen 08/10/2023 24 (H) 6 - 23 mg/dL Final Creatinine 08/10/2023 0.30 (L) 0.50 - 1.05 mg/dL Final eGFR 08/10/2023 >90 >60 mL/min/1.73m*2 Final Calculations of estimated GFR are performed using the 2020 CKD-EPI Study Refit equation without the race variable for the IDMS-Traceable creatinine methods. https://jasn.asnjournals.org/mian nt/early//ASN.[email or web address] Calcium 08/10/2023 9.6 8.6 - 10.6 mg/dL Final Albumin 08/10/2023 4.3 3.4 - 5.0 g/dL Final Alkaline Phosphatase 08/10/2023 48 33 - 110 U/L Final Total Protein 08/10/2023 6.6 6.4 - 8.2 g/dL Final AST 08/10/2023 24 9 - 39 U/L Final Bilirubin, Total 08/10/2023 0.5 0.0 - 1.2 mg/dL Final ALT 08/10/2023 37 7 - 45 U/L Final Patients treated with Sulfasalazine may generate falsely decreased results for ALT. Cholesterol 08/10/2023 218 (H) 0 - 199 mg/dL Final Age Desirable Borderline High High 0-19 Y 0 - 169 170 - 199 >/= 200 20-24 Y 0 - 189 190 - 224 >/= 225 >24 Y 0 - 199 200 - 239 >/= 240 All ranges are based on fasting samples. Specific therapeutic targets will vary based on patient-specific cardiac risk. Pediatric guidelines reference:Pediatrics 2011, 128(S5).Adult guidelines reference: NCEP ATPIII Guidelines,TUSHAR 2001, 258:2486-97 Venipuncture immediately after or during the administration of Metamizole may lead to falsely low results. Testing should be performed immediately prior to Metamizole dosing. HDL-Cholesterol 08/10/2023 101.6 mg/dL Final Age Very Low Low Normal High 0-19 Y < 35 < 40 40-45 ---- 20-24 Y ---- < 40 >45 ---- >24 Y ---- < 40 40-60 >60 Cholesterol/HDL Ratio 08/10/2023 2.1 Final Ref Values Desirable < 3.4 High Risk > 5.0 LDL Calculated 08/10/2023 108 (H) <=99 mg/dL Final Near Borderline AGE Desirable Optimal High High Very High 0-19 Y 0 - 109 --- 110-129 >/= 130 ---- 20-24 Y 0 - 119 --- 120-159 >/= 160 ---- >24 Y 0 - 99 100-129 130-159 160-189 >/=190 VLDL 08/10/2023 8 0 - 40 mg/dL Final Triglycerides 08/10/2023 41 0 - 149 mg/dL Final Age Desirable Borderline High High Very High 0 D-90 D 19 - 174 ---- ---- ---- 91 D- 9 Y 0 - 74 75 - 99 >/= 100 ---- 10-19 Y 0 - 89 90 - 129 >/= 130 ---- 20-24 Y 0 - 114 115 - 149 >/= 150 ---- >24 Y 0 - 149 150 - 199 200- 499 >/= 500 Venipuncture immediately after or during the administration of Metamizole may lead to falsely low results. Testing should be performed immediately prior to Metamizole dosing. Non HDL Cholesterol 08/10/2023 116 0 - 149 mg/dL Final Age Desirable Borderline High High Very High 0-19 Y 0 - 119 120 - 144 >/= 145 >/= 160 20-24 Y 0 - 149 150 - 189 >/= 190 ---- >24 Y 30 mg/dL above LDL Cholesterol goal Thyroid Stimulating Hormone 08/10/2023 2.01 0.44 - 3.98 mIU/L Final Follicle Stimulating Hormone 08/10/2023 90.5 IU/L Final FSH Ref Values Follicular 2.0-12.0 IU/L Mid-Cycle 12.0-25.0 IU/L Luteal Phase 2.0-12.0 IU/L Menopause 30.0-150.0 IU/L Pre-puberty 50% Adult IU/L Adult Male 2.0-10.0 IU/L Infants 0.0-1.0 IU/L Luteinizing Hormone 08/10/2023 68.8 IU/L Final LH Reference Values Follicular Phase 1.9-12.5 IU/L Mid-Cycle 8.7-76.3 IU/L Luteal Phase 0.5-16.9 IU/L Post Menopause 5.0-55.2 IU/L Children 0- 6.0 IU/L Adult Male 18-70 years 1.5- 9.3 IU/L Adult Male >70 years 3.1-34.6 IU/L Lab on 06/04/2023 Component Date Value Ref Range Status WBC 06/04/2023 6.5 4.4 - 11.3 x10*3/uL Final nRBC 06/04/2023 0.0 0.0 - 0.0 /100 WBCs Final RBC 06/04/2023 4.66 4.00 - 5.20 x10*6/uL Final Hemoglobin 06/04/2023 14.2 12.0 - 16.0 g/dL Final Hematocrit 06/04/2023 44.1 36.0 - 46.0 % Final MCV 06/04/2023 95 80 - 100 fL Final MCH 06/04/2023 30.5 26.0 - 34.0 pg Final MCHC 06/04/2023 32.2 32.0 - 36.0 g/dL Final RDW 06/04/2023 13.1 11.5 - 14.5 % Final Platelets 06/04/2023 279 150 - 450 x10*3/uL Final Neutrophils % 06/04/2023 58.4 40.0 - 80.0 % Final Immature Granulocytes %, Automated 06/04/2023 0.3 0.0 - 0.9 % Final Immature Granulocyte Count (IG) includes promyelocytes, myelocytes and metamyelocytes but does not include bands. Percent differential counts (%) should be interpreted in the context of the absolute cell counts (cells/UL). Lymphocytes % 06/04/2023 30.3 13.0 - 44.0 % Final Monocytes % 06/04/2023 9.3 2.0 - 10.0 % Final Eosinophils % 06/04/2023 0.9 0.0 - 6.0 % Final Basophils % 06/04/2023 0.8 0.0 - 2.0 % Final Neutrophils Absolute 06/04/2023 3.82 1.20 - 7.70 x10*3/uL Final Percent differential counts (%) should be interpreted in the context of the absolute cell counts (cells/uL). Immature Granulocytes Absolute, Au* 06/04/2023 0.02 0.00 - 0.70 x10*3/uL Final Lymphocytes Absolute 06/04/2023 1.98 1.20 - 4.80 x10*3/uL Final Monocytes Absolute 06/04/2023 0.61 0.10 - 1.00 x10*3/uL Final Eosinophils Absolute 06/04/2023 0.06 0.00 - 0.70 x10*3/uL Final Basophils Absolute 06/04/2023 0.05 0.00 - 0.10 x10*3/uL Final Glucose 06/04/2023 83 74 - 99 mg/dL Final Sodium 06/04/2023 141 136 - 145 mmol/L Final Potassium 06/04/2023 4.3 3.5 - 5.3 mmol/L Final Chloride 06/04/2023 104 98 - 107 mmol/L Final Bicarbonate 06/04/2023 27 21 - 32 mmol/L Final Anion Gap 06/04/2023 14 10 - 20 mmol/L Final Urea Nitrogen 06/04/2023 21 6 - 23 mg/dL Final Creatinine 06/04/2023 0.59 0.50 - 1.05 mg/dL Final eGFR 06/04/2023 >90 >60 mL/min/1.73m*2 Final Calculations of estimated GFR are performed using the 2020 CKD-EPI Study Refit equation without the race variable for the IDMS-Traceable creatinine methods. https://jasn.asnjournals.org/mian nt/early//ASN.7202616513 Calcium 06/04/2023 10.0 8.6 - 10.6 mg/dL Final Albumin 06/04/2023 4.8 3.4 - 5.0 g/dL Final Alkaline Phosphatase 06/04/2023 54 33 - 110 U/L Final Total Protein 06/04/2023 7.2 6.4 - 8.2 g/dL Final AST 06/04/2023 24 9 - 39 U/L Final Bilirubin, Total 06/04/2023 0.5 0.0 - 1.2 mg/dL Final ALT 06/04/2023 31 7 - 45 U/L Final Patients treated with Sulfasalazine may generate falsely decreased results for ALT. lactoferrin, Fecal, Quant. 06/04/2023 Negative Negative Final A negative result does not exclude the presence of intestinal inflammation. Performed By: [facility] [address] [place] [address] Carpentry Professional: Jelani Jones MD, PhD CLIA Number: [id number] C. difficile, PCR 06/04/2023 Not Detected Not Detected Final Ova + Parasite Exam 06/04/2023 Negative Negative Final INTERPRETIVE INFORMATION: Ova and Parasite, Fecal Method for identification of Ova and Parasites includes wet mount and trichrome stains. Due to the various shedding cycles of many parasites, three separate stool specimens collected over a 5-7-day period are recommended for ova and parasite examination. A single negative result does not rule out the possibility of a parasitic infection. The ova and parasite exam does not specifically detect Cryptosporidium, Cyclospora, Cystoisospora, and Microsporidia. For additional test information refer to [facility] ([facility]) consult, [email or web address] [email or web address] Performed By: [facility] [address] [place] [address] Carpentry Professional: Jelani Jones MD, PhD CLIA Number: [id number] Giardia lamblia Antigen 06/04/2023 Negative Negative Final Performed By: [facility] [address] [place] [address] Carpentry Professional: Jelani Jones MD, PhD CLIA Number: [id number] Cryptosporidium Antigen by EIA 06/04/2023 Negative Negative Final Performed By: [facility] [address] [place] [address] Carpentry Professional: Jelani Jones MD, PhD CLIA Number: [id number] Office Visit on 06/04/2023 Component Date Value Ref Range Status Campylobacter Group 06/04/2023 Not Detected Not Detected Final Salmonella species 06/04/2023 Not Detected Not Detected Final Shigella species 06/04/2023 Not Detected Not Detected Final Vibrio Group 06/04/2023 Not Detected Not Detected Final Yersinia Enterocolitica 06/04/2023 Not Detected Not Detected Final Shiga Toxin 1 06/04/2023 Not Detected Not Detected Final Shiga Toxin 2 06/04/2023 Not Detected Not Detected Final Norovirus GI/GII 06/04/2023 Not Detected Not Detected Final Rotavirus A 06/04/2023 Not Detected Not Detected Final No current outpatient medications on file prior to visit. No current facility-administered medications on file prior to visit. No images are attached to the encounter. Assessment/Plan Diagnoses and all orders for this visit: Acute UTI Hematuria, unspecified type Menopause 1. Patient to start on antibiotics 2. Patient to have CT abdomen and pelvis 3. Patient to call questions or concerns documented in this encounter [facility] Work Phone: 01-28-2024 History of Present illness Narrative NAME: Albino March CLINIC NO: [id number] REASON FOR VISIT Albino March is a 53 year old female who is scheduled for a consult at the request of . No chief complaint on file. PRESENTING COMPLAINT: Establish care HISTORY OF PRESENTING ILLNESS: This is a 53 years old female with PMH of renal calculi, anxiety and previous history of constipation presented in clinic today to establish care. Diarrhea started apr 2023 and had colonoscopy which was significant for collagenous colitis She is avoiding gluten and diarrhea improved for 2 months December 16 started taking progesterone to help sleeping and diarrhea stared back in 01/02/24 and now its progressive Current Clinical Symptoms # of bowel movements daily: 10-15/ days # of liquid stools daily: all of them Consistency: watery, loose Bloody bowel movements: no Urgency: yes Abdominal pain: yes Abdominal distention: yes Nausea/vomiting: yes nauseous sometimes Weight loss over last 3 months: no General well-being: very well Patient-Entered Data PAST SURGICAL HISTORY Procedure Laterality Date NONE PAST MEDICAL HISTORY Diagnosis Date Kidney stones No current outpatient medications on file. No current facility-administered medications for this visit. Patient has no known allergies. Recent Labs: CBC: No results found for: "WBC", "HCT", "MCV", "PLT", "NEUT", LYMPHP Hepatic Function Panel: No results found for: "ALB", "TBILI", "CBILI", "ALKPHOS", "AST", "ALT", "TPROT" Social History Tobacco Use Smoking status: Never Smokeless tobacco: Never Substance Use Topics Alcohol use: No All others negative FAMILY HISTORY Has anyone in your family (grandparents, parents, brothers, sisters, aunts, or uncles) had: Liver problems: No Colitis: No Colon cancer:No Other cancers: NONE No family history on file. PHYSICAL EXAMINATION General Appearance: alert, oriented x 3, pleasant and in no acute distress Eyes: No icterus or conjunctival pallor.. Oropharynx: Lips, tongue, and oral mucosa normal. Lungs: no audible wheez Heart: regular rate and rhythm Abdomen: Not distended. Extremities: no cyanosis or edema. Skin: no rashes Assessment IMPRESSION Collagenous colitis-chronic diarrhea PLAN -Blood and stool tests ordered -Lactulose breath test -Imodium as needed -Ayble GASTON Noah Oquendo MD January 27, 2024 10:40 PM documented in this encounter [facility] 01-28-2024 Note HNO ID: [id number] Author: NOAH OQUENDO MD Service: ? Author Type: Physician Type: Progress Notes Filed: 02/05/2024 10:24 Note Text: NAME: Albino March [facility] NO: [id number] REASON FOR VISIT Albino March is a 53 year old female who is scheduled for a consult at the request of . No chief complaint on file. PRESENTING COMPLAINT: Establish care HISTORY OF PRESENTING ILLNESS: This is a 53 years old female with PMH of renal calculi, anxiety and previous history of constipation presented in clinic today to establish care. Diarrhea started apr 2023 and had colonoscopy which was significant for collagenous colitis She is avoiding gluten and diarrhea improved for 2 months December 16 started taking progesterone to help sleeping and diarrhea stared back in 01/02/24 and now its progressive Current Clinical Symptoms # of bowel movements daily: 10-15/ days # of liquid stools daily: all of them Consistency: watery, loose Bloody bowel movements: no Urgency: yes Abdominal pain: yes Abdominal distention: yes Nausea/vomiting: yes nauseous sometimes Weight loss over last 3 months: no General well-being: very well Patient-Entered Data PAST SURGICAL HISTORY Procedure Laterality Date NONE PAST MEDICAL HISTORY Diagnosis Date Kidney stones No current outpatient medications on file. No current facility-administered medications for this visit. Patient has no known allergies. Recent Labs: CBC: No results found for: "WBC", "HCT", "MCV", "PLT", "NEUT", LYMPHP Hepatic Function Panel: No results found for: "ALB", "TBILI", "CBILI", "ALKPHOS", "AST", "ALT", "TPROT" Social History Tobacco Use Smoking status: Never Smokeless tobacco: Never Substance Use Topics Alcohol use: No All others negative FAMILY HISTORY Has anyone in your family (grandparents, parents, brothers, sisters, aunts, or uncles) had: Liver problems: No Colitis: No Colon cancer:No Other cancers: NONE No family history on file. PHYSICAL EXAMINATION General Appearance: alert, oriented x 3, pleasant and in no acute distress Eyes: No icterus or conjunctival pallor.. Oropharynx: Lips, tongue, and oral mucosa normal. Lungs: no audible wheez Heart: regular rate and rhythm Abdomen: Not distended. Extremities: no cyanosis or edema. Skin: no rashes Assessment IMPRESSION Collagenous colitis-chronic diarrhea PLAN -Blood and stool tests ordered -Lactulose breath test -Imodium as needed -Ayble GASTON Noah Oquendo MD January 27, 2024 10:40 PM [facility] 08-16-2023 Evaluation + Plan note Associated Problem(s): Hyperlipidemia Cholesterol patterns show significant elevation of HDL cholesterol which I feel is protective we are going to order CT scoring of the coronary [facility] Work Phone: 08-16-2023 Miscellaneous Notes Associated Problem(s): Hyperlipidemia Cholesterol patterns show significant elevation of HDL cholesterol which I feel is protective we are going to order CT scoring of the coronary Associated Problem(s): Diarrhea This is resolved possible colitis noted from GI colonoscopy. Associated Problem(s): Insomnia May try Tylenol PM if troubles with insomnia Associated Problem(s): Menopause Findings consistent with menopause. Hormone levels consistent with. Recommend vitamin D and calcium supplement. Recommend routine exercise that you already are doing Addended by: TAYLER DAO on: 08/16/2023 10:36 AM Modules accepted: Orders documented in this encounter [facility] Work Phone: 08-16-2023 Evaluation + Plan note Associated Problem(s): Diarrhea This is resolved possible colitis noted from GI colonoscopy. [facility] Work Phone: 08-16-2023 Evaluation + Plan note Associated Problem(s): Insomnia May try Tylenol PM if troubles with insomnia [facility] Work Phone: 08-16-2023 Evaluation + Plan note Associated Problem(s): Menopause Findings consistent with menopause. Hormone levels consistent with. Recommend vitamin D and calcium supplement. Recommend routine exercise that you already are doing T [facility] Work Phone: 08-16-2023 History of Present illness Narrative Subjective Patient ID: Albino March is a 53 y.o. female who presents for discuss hormone issues. Doing well. Patient overall doing well. Patient is having no difficulties with headache or double vision or blurry vision. No troubles with sore throat or difficulty swallowing. Maybe a little bit of night sweats has not had a period over the last 3 months. No troubles with abdominal pain or discomfort no troubles with swelling of the legs or feet. No fever no chills no night sweats. Reviewed cholesterol levels. Slight elevation of total cholesterol and LDL cholesterol HDL cholesterol is spectacular patient presents to discuss hormone issues Review of Systems Constitutional: Negative for activity change, chills, diaphoresis, fever and unexpected weight change. HENT: Negative. Negative for dental problem, ear discharge, ear pain, hearing loss, mouth sores, rhinorrhea, sinus pain, sore throat and tinnitus. Eyes: Negative. Negative for redness, itching and visual disturbance. Respiratory: Negative. Negative for cough, chest tightness and shortness of breath. Cardiovascular: Negative. Negative for chest pain and leg swelling. Gastrointestinal: Negative. Negative for anal bleeding, constipation and diarrhea. Slow BM Endocrine: Negative. Genitourinary: Negative for decreased urine volume. Neurological: Negative for speech difficulty, light-headedness and numbness. Hematological: Negative for adenopathy. Objective BP 102/62 Pulse 73 Temp 36.5 C (97.7 F) Ht 1.537 m (5' 0.5") Wt 70.3 kg (155 lb) LMP 05/10/2023 SpO2 100% BMI 29.77 kg/m BSA Body surface area is 1.73 meters squared. Physical Exam Constitutional: Appearance: Normal appearance. HENT: Head: Normocephalic and atraumatic. Nose: Nose normal. Mouth/Throat: Mouth: Mucous membranes are dry. Cardiovascular: Pulses: Normal pulses. Pulmonary: Effort: Pulmonary effort is normal. Breath sounds: Normal breath sounds. Abdominal: General: Abdomen is flat. Tenderness: There is no abdominal tenderness. There is no guarding. Musculoskeletal: General: No deformity. Neurological: Mental Status: She is alert. Lab on 08/10/2023 Component Date Value Ref Range Status WBC 08/10/2023 4.0 (L) 4.4 - 11.3 x10*3/uL Final nRBC 08/10/2023 0.0 0.0 - 0.0 /100 WBCs Final RBC 08/10/2023 4.38 4.00 - 5.20 x10*6/uL Final Hemoglobin 08/10/2023 13.4 12.0 - 16.0 g/dL Final Hematocrit 08/10/2023 42.9 36.0 - 46.0 % Final MCV 08/10/2023 98 80 - 100 fL Final MCH 08/10/2023 30.6 26.0 - 34.0 pg Final MCHC 08/10/2023 31.2 (L) 32.0 - 36.0 g/dL Final RDW 08/10/2023 12.5 11.5 - 14.5 % Final Platelets 08/10/2023 225 150 - 450 x10*3/uL Final Neutrophils % 08/10/2023 48.6 40.0 - 80.0 % Final Immature Granulocytes %, Automated 08/10/2023 0.3 0.0 - 0.9 % Final Immature Granulocyte Count (IG) includes promyelocytes, myelocytes and metamyelocytes but does not include bands. Percent differential counts (%) should be interpreted in the context of the absolute cell counts (cells/UL). Lymphocytes % 08/10/2023 36.3 13.0 - 44.0 % Final Monocytes % 08/10/2023 10.5 2.0 - 10.0 % Final Eosinophils % 08/10/2023 3.0 0.0 - 6.0 % Final Basophils % 08/10/2023 1.3 0.0 - 2.0 % Final Neutrophils Absolute 08/10/2023 1.94 1.20 - 7.70 x10*3/uL Final Percent differential counts (%) should be interpreted in the context of the absolute cell counts (cells/uL). Immature Granulocytes Absolute, Au* 08/10/2023 0.01 0.00 - 0.70 x10*3/uL Final Lymphocytes Absolute 08/10/2023 1.45 1.20 - 4.80 x10*3/uL Final Monocytes Absolute 08/10/2023 0.42 0.10 - 1.00 x10*3/uL Final Eosinophils Absolute 08/10/2023 0.12 0.00 - 0.70 x10*3/uL Final Basophils Absolute 08/10/2023 0.05 0.00 - 0.10 x10*3/uL Final Glucose 08/10/2023 78 74 - 99 mg/dL Final Sodium 08/10/2023 140 136 - 145 mmol/L Final Potassium 08/10/2023 4.2 3.5 - 5.3 mmol/L Final Chloride 08/10/2023 104 98 - 107 mmol/L Final Bicarbonate 08/10/2023 29 21 - 32 mmol/L Final Anion Gap 08/10/2023 11 10 - 20 mmol/L Final Urea Nitrogen 08/10/2023 24 (H) 6 - 23 mg/dL Final Creatinine 08/10/2023 0.30 (L) 0.50 - 1.05 mg/dL Final eGFR 08/10/2023 >90 >60 mL/min/1.73m*2 Final Calculations of estimated GFR are performed using the 2020 CKD-EPI Study Refit equation without the race variable for the IDMS-Traceable creatinine methods. https://jasn.asnjournals.org/mian nt/early//ASN.6427349157 Calcium 08/10/2023 9.6 8.6 - 10.6 mg/dL Final Albumin 08/10/2023 4.3 3.4 - 5.0 g/dL Final Alkaline Phosphatase 08/10/2023 48 33 - 110 U/L Final Total Protein 08/10/2023 6.6 6.4 - 8.2 g/dL Final AST 08/10/2023 24 9 - 39 U/L Final Bilirubin, Total 08/10/2023 0.5 0.0 - 1.2 mg/dL Final ALT 08/10/2023 37 7 - 45 U/L Final Patients treated with Sulfasalazine may generate falsely decreased results for ALT. Cholesterol 08/10/2023 218 (H) 0 - 199 mg/dL Final Age Desirable Borderline High High 0-19 Y 0 - 169 170 - 199 >/= 200 20-24 Y 0 - 189 190 - 224 >/= 225 >24 Y 0 - 199 200 - 239 >/= 240 All ranges are based on fasting samples. Specific therapeutic targets will vary based on patient-specific cardiac risk. Pediatric guidelines reference:Pediatrics 2011, 128(S5).Adult guidelines reference: NCEP ATPIII Guidelines,TUSHAR 2001, 258:2486-97 Venipuncture immediately after or during the administration of Metamizole may lead to falsely low results. Testing should be performed immediately prior to Metamizole dosing. HDL-Cholesterol 08/10/2023 101.6 mg/dL Final Age Very Low Low Normal High 0-19 Y < 35 < 40 40-45 ---- 20-24 Y ---- < 40 >45 ---- >24 Y ---- < 40 40-60 >60 Cholesterol/HDL Ratio 08/10/2023 2.1 Final Ref Values Desirable < 3.4 High Risk > 5.0 LDL Calculated 08/10/2023 108 (H) <=99 mg/dL Final Near Borderline AGE Desirable Optimal High High Very High 0-19 Y 0 - 109 --- 110-129 >/= 130 ---- 20-24 Y 0 - 119 --- 120-159 >/= 160 ---- >24 Y 0 - 99 100-129 130-159 160-189 >/=190 VLDL 08/10/2023 8 0 - 40 mg/dL Final Triglycerides 08/10/2023 41 0 - 149 mg/dL Final Age Desirable Borderline High High Very High 0 D-90 D 19 - 174 ---- ---- ---- 91 D- 9 Y 0 - 74 75 - 99 >/= 100 ---- 10-19 Y 0 - 89 90 - 129 >/= 130 ---- 20-24 Y 0 - 114 115 - 149 >/= 150 ---- >24 Y 0 - 149 150 - 199 200- 499 >/= 500 Venipuncture immediately after or during the administration of Metamizole may lead to falsely low results. Testing should be performed immediately prior to Metamizole dosing. Non HDL Cholesterol 08/10/2023 116 0 - 149 mg/dL Final Age Desirable Borderline High High Very High 0-19 Y 0 - 119 120 - 144 >/= 145 >/= 160 20-24 Y 0 - 149 150 - 189 >/= 190 ---- >24 Y 30 mg/dL above LDL Cholesterol goal Thyroid Stimulating Hormone 08/10/2023 2.01 0.44 - 3.98 mIU/L Final Follicle Stimulating Hormone 08/10/2023 90.5 IU/L Final FSH Ref Values Follicular 2.0-12.0 IU/L Mid-Cycle 12.0-25.0 IU/L Luteal Phase 2.0-12.0 IU/L Menopause 30.0-150.0 IU/L Pre-puberty 50% Adult IU/L Adult Male 2.0-10.0 IU/L Infants 0.0-1.0 IU/L Luteinizing Hormone 08/10/2023 68.8 IU/L Final LH Reference Values Follicular Phase 1.9-12.5 IU/L Mid-Cycle 8.7-76.3 IU/L Luteal Phase 0.5-16.9 IU/L Post Menopause 5.0-55.2 IU/L Children 0- 6.0 IU/L Adult Male 18-70 years 1.5- 9.3 IU/L Adult Male >70 years 3.1-34.6 IU/L Lab on 06/04/2023 Component Date Value Ref Range Status WBC 06/04/2023 6.5 4.4 - 11.3 x10*3/uL Final nRBC 06/04/2023 0.0 0.0 - 0.0 /100 WBCs Final RBC 06/04/2023 4.66 4.00 - 5.20 x10*6/uL Final Hemoglobin 06/04/2023 14.2 12.0 - 16.0 g/dL Final Hematocrit 06/04/2023 44.1 36.0 - 46.0 % Final MCV 06/04/2023 95 80 - 100 fL Final MCH 06/04/2023 30.5 26.0 - 34.0 pg Final MCHC 06/04/2023 32.2 32.0 - 36.0 g/dL Final RDW 06/04/2023 13.1 11.5 - 14.5 % Final Platelets 06/04/2023 279 150 - 450 x10*3/uL Final Neutrophils % 06/04/2023 58.4 40.0 - 80.0 % Final Immature Granulocytes %, Automated 06/04/2023 0.3 0.0 - 0.9 % Final Immature Granulocyte Count (IG) includes promyelocytes, myelocytes and metamyelocytes but does not include bands. Percent differential counts (%) should be interpreted in the context of the absolute cell counts (cells/UL). Lymphocytes % 06/04/2023 30.3 13.0 - 44.0 % Final Monocytes % 06/04/2023 9.3 2.0 - 10.0 % Final Eosinophils % 06/04/2023 0.9 0.0 - 6.0 % Final Basophils % 06/04/2023 0.8 0.0 - 2.0 % Final Neutrophils Absolute 06/04/2023 3.82 1.20 - 7.70 x10*3/uL Final Percent differential counts (%) should be interpreted in the context of the absolute cell counts (cells/uL). Immature Granulocytes Absolute, Au* 06/04/2023 0.02 0.00 - 0.70 x10*3/uL Final Lymphocytes Absolute 06/04/2023 1.98 1.20 - 4.80 x10*3/uL Final Monocytes Absolute 06/04/2023 0.61 0.10 - 1.00 x10*3/uL Final Eosinophils Absolute 06/04/2023 0.06 0.00 - 0.70 x10*3/uL Final Basophils Absolute 06/04/2023 0.05 0.00 - 0.10 x10*3/uL Final Glucose 06/04/2023 83 74 - 99 mg/dL Final Sodium 06/04/2023 141 136 - 145 mmol/L Final Potassium 06/04/2023 4.3 3.5 - 5.3 mmol/L Final Chloride 06/04/2023 104 98 - 107 mmol/L Final Bicarbonate 06/04/2023 27 21 - 32 mmol/L Final Anion Gap 06/04/2023 14 10 - 20 mmol/L Final Urea Nitrogen 06/04/2023 21 6 - 23 mg/dL Final Creatinine 06/04/2023 0.59 0.50 - 1.05 mg/dL Final eGFR 06/04/2023 >90 >60 mL/min/1.73m*2 Final Calculations of estimated GFR are performed using the 2020 CKD-EPI Study Refit equation without the race variable for the IDMS-Traceable creatinine methods. https://jasn.asnjournals.org/mian nt/early//ASN.1559285520 Calcium 06/04/2023 10.0 8.6 - 10.6 mg/dL Final Albumin 06/04/2023 4.8 3.4 - 5.0 g/dL Final Alkaline Phosphatase 06/04/2023 54 33 - 110 U/L Final Total Protein 06/04/2023 7.2 6.4 - 8.2 g/dL Final AST 06/04/2023 24 9 - 39 U/L Final Bilirubin, Total 06/04/2023 0.5 0.0 - 1.2 mg/dL Final ALT 06/04/2023 31 7 - 45 U/L Final Patients treated with Sulfasalazine may generate falsely decreased results for ALT. lactoferrin, Fecal, Quant. 06/04/2023 Negative Negative Final A negative result does not exclude the presence of intestinal inflammation. Performed By: [facility] [address] [place] [address] Carpentry Professional: Jelani Jones MD, PhD CLIA Number: [id number] C. difficile, PCR 06/04/2023 Not Detected Not Detected Final Ova + Parasite Exam 06/04/2023 Negative Negative Final INTERPRETIVE INFORMATION: Ova and Parasite, Fecal Method for identification of Ova and Parasites includes wet mount and trichrome stains. Due to the various shedding cycles of many parasites, three separate stool specimens collected over a 5-7-day period are recommended for ova and parasite examination. A single negative result does not rule out the possibility of a parasitic infection. The ova and parasite exam does not specifically detect Cryptosporidium, Cyclospora, Cystoisospora, and Microsporidia. For additional test information refer to [employer] consult, https://clipkit/content/di arrhea Performed By: [facility] [address] [place] [address] Carpentry Professional: Jelani Jones MD, PhD CLIA Number: [id number] Giardia lamblia Antigen 06/04/2023 Negative Negative Final Performed By: [facility] [address] [place] [address] Carpentry Professional: Jelani Jones MD, PhD CLIA Number: [id number] Cryptosporidium Antigen by EIA 06/04/2023 Negative Negative Final Performed By: [facility] [address] [place] [address] Carpentry Professional: Jelani Jones MD, PhD CLIA Number: [id number] Office Visit on 06/04/2023 Component Date Value Ref Range Status Campylobacter Group 06/04/2023 Not Detected Not Detected Final Salmonella species 06/04/2023 Not Detected Not Detected Final Shigella species 06/04/2023 Not Detected Not Detected Final Vibrio Group 06/04/2023 Not Detected Not Detected Final Yersinia Enterocolitica 06/04/2023 Not Detected Not Detected Final Shiga Toxin 1 06/04/2023 Not Detected Not Detected Final Shiga Toxin 2 06/04/2023 Not Detected Not Detected Final Norovirus GI/GII 06/04/2023 Not Detected Not Detected Final Rotavirus A 06/04/2023 Not Detected Not Detected Final Lab on 11/28/2022 Component Date Value Ref Range Status Glucose 11/28/2022 82 74 - 99 mg/dL Final Sodium 11/28/2022 140 136 - 145 mmol/L Final Potassium 11/28/2022 4.5 3.5 - 5.3 mmol/L Final Chloride 11/28/2022 104 98 - 107 mmol/L Final Bicarbonate 11/28/2022 28 21 - 32 mmol/L Final Anion Gap 11/28/2022 13 10 - 20 mmol/L Final Urea Nitrogen 11/28/2022 19 6 - 23 mg/dL Final Creatinine 11/28/2022 0.62 0.50 - 1.05 mg/dL Final GFR Female 11/28/2022 >90 >90 mL/min/1.73m2 Final CALCULATIONS OF ESTIMATED GFR ARE PERFORMED USING THE 2020 CKD-EPI STUDY REFIT EQUATION WITHOUT THE RACE VARIABLE FOR THE IDMS-TRACEABLE CREATININE METHODS. https://jasn.asnjournals.org/mian nt/early//ASN.8263906019 Calcium 11/28/2022 9.4 8.6 - 10.6 mg/dL Final Albumin 11/28/2022 4.5 3.4 - 5.0 g/dL Final Alkaline Phosphatase 11/28/2022 42 33 - 110 U/L Final Total Protein 11/28/2022 6.9 6.4 - 8.2 g/dL Final AST 11/28/2022 32 9 - 39 U/L Final Total Bilirubin 11/28/2022 0.6 0.0 - 1.2 mg/dL Final ALT (SGPT) 11/28/2022 60 (H) 7 - 45 U/L Final Patients treated with Sulfasalazine may generate falsely decreased results for ALT. Hep A IgM 11/28/2022 NONREACTIVE NONREACTIVE Final Biotin interference may cause falsely decreased results. Patients taking a Biotin dose of up to 5 mg/day should refrain from taking Biotin for 24 hours before sample collection. Providers may contact their local laboratory for further information. Hep B Core IgM 11/28/2022 NONREACTIVE NONREACTIVE Final Results from patients taking biotin supplements or receiving high-dose biotin therapy should be interpreted with caution due to possible interference with this test. Providers may contact their local laboratory for further information. Hepatitis B Surface Ag 11/28/2022 NONREACTIVE NONREACTIVE Final Biotin interference may cause falsely decreased results. Patients taking a Biotin dose of up to 5 mg/day should refrain from taking Biotin for 24 hours before sample collection. Providers may contact their local laboratory for further information. Hepatitis C Ab 11/28/2022 NONREACTIVE NONREACTIVE Final Results from patients taking biotin supplements or receiving high-dose biotin therapy should be interpreted with caution due to possible interference with this test. Providers may contact their local laboratory for further information. Office Visit on 10/03/2022 Component Date Value Ref Range Status Pathology Report 10/03/2022 Final Value: Date of Procedure: 10/03/2022 Pathologist: [facility], Cytology Date Reported: 10/12/2022 Date Received: 10/03/2022 Submitting Physician: ABIODUN STEPHENS D.O. FINAL CYTOLOGICAL INTERPRETATION A. THINPREP PAP CERVICAL: Specimen adequacy: SATISFACTORY FOR EVALUATION. Quality Indicator: Endocervical/transformation zone component is present. General Categorization: NEGATIVE FOR INTRAEPITHELIAL LESION OR MALIGNANCY. HIGH RISK HPV TEST RESULT: HPV GENOTYPE 16 NEGATIVE HPV GENOTYPE 18 NEGATIVE HPV GENOTYPE OTHER NEGATIVE Reference Range: Negative Slide(s) initially screened by a Container Finisher at [facility], [address] [place] [id number] QC review performed at [facility], [address] [place] [id number] Testing for high-risk (HR) type of human papilloma virus (HPV) is performed by the Mary bernarda HPV Test. The bernarda HPV Test is a qualitative polymerase chain reaction that amplifies DNA of HPV16, HPV18 and 12 other high-risk HPV types (31, 33, 35, 39, 45, 51, 52, 56, 58, 59, 66, and 68) associated with cervical cancer and its precursor lesions. A positive result indicates the presence of HPV DNA due to one or more of the 14 genotypes: 16, 18, 31, 33, 35, 39, 45, 51, 52, 56, 58, 59, 66, and 68. Negative results indicate HPV DNA concentrations are undetectable or below the pre-set threshold for detection. False negative results may be associated with unoptimized sampling. A negative HR HPV result does not exclude the possibility of future cytologic HSIL or underlying CIN2-3 or cancer. This test is approved for cervical specimens by the US Food and Drug Administration. Results of this test should be interp reted in conjunction with the patient's Pap test results. Please refer to ASCCP current guidelines for the use of HPV DNA testing, result interpretation, and patient management. The performance of this test was verified by the Molecular Diagnostic Laboratory at [facility]. The lab is certified under the Clinical Laboratory Amendments of 1988 (CLIA 88) as qualified to perform high complexity clinical laboratory testing. This specimen has been analyzed by the [employer] Imaging System ([employer] an automated imaging and review system, which assists the laboratory in evaluating cells on ThinPrep Pap tests. Following automated imaging, selected sharma from every slide were reviewed by a campus recruiting coordinator and/or pathologist. Electronically Signed Out By [facility], Cytology//RIC/PING By the signature on this report, the individual or group listed as making the Final Interpretation/Diagnosis certifies that the y have reviewed this case. Diagnostic interpretation performed at [facility] [address] [place] [address] Educational Note: Cervical cytology is a screening procedure primarily for squamous cancers and precursors and has associated false-negative and false-positive results as evidenced by published data. Your patient's test should be interpreted in this context, together with patient's history and clinical findings. Regular sampling and follow-up of unexplained clinical signs and symptoms are recommended to minimize false negative results. Clinical History Date of Last Menstrual Period: (Not Entered) Other Clinical Conditions: COTEST HPV(Genotype) except for ASC-H, HSIL, Carcinoma - Include HPV Genotype testing EPIC Order Description: GYNECOLOGIC CYTOLOGY CONSULTATION Specimen Information: ThinPrep, CERVIX, SCREENING Clinical Diagnosis History: Z12.4-Screening for cervical cancer Perform HPV HR test? Cotest (if Negative, ASCUS, or L ALESSANDRO) Include HPV Genotype? Yes Source of Specimen A: THINPREP PAP CERVICAL [facility] Department of Pathology [address] [place] [address] CONVERTED FINAL DIAGNOSIS 10/03/2022 Final Value:A. THINPREP PAP CERVICAL: Specimen adequacy: SATISFACTORY FOR EVALUATION. Quality Indicator: Endocervical/transformation zone component is present. General Categorization: NEGATIVE FOR INTRAEPITHELIAL LESION OR MALIGNANCY. HIGH RISK HPV TEST RESULT: HPV GENOTYPE 16 NEGATIVE HPV GENOTYPE 18 NEGATIVE HPV GENOTYPE OTHER NEGATIVE Reference Range: Negative CONVERTED CLINICAL DIAGNOSIS-HISTO* 10/03/2022 Final Value:EPIC Order Description: GYNECOLOGIC CYTOLOGY CONSULTATION Specimen Information: ThinPrep, CERVIX, SCREENING Clinical Diagnosis History: Z12.4-Screening for cervical cancer Perform HPV HR test? Cotest (if Negative, ASCUS, or LSIL) Include HPV Genotype? Yes CONVERTED DIAGNOSIS COMMENT 10/03/2022 Final Value:Slide(s) initially screened by a Container Finisher at [facility], [address] [place] [address] QC review performed at [facility], [address] [place] [id number] Testing for high-risk (HR) type of human papilloma virus (HPV) is performed by the Mary bernarda HPV Test. The bernarda HPV Test is a qualitative polymerase chain reaction that amplifies DNA of HPV16, HPV18 and 12 other high-risk HPV types (31, 33, 35, 39, 45, 51, 52, 56, 58, 59, 66, and 68) associated with cervical cancer and its precursor lesions. A positive result indicates the presence of HPV DNA due to one or more of the 14 genotypes: 16, 18, 31, 33, 35, 39, 45, 51, 52, 56, 58, 59, 66, and 68. Negative results indicate HPV DNA concentrations are undetectable or below the pre-set threshold for detection. False negative results may be associated with unoptimized sampling. A negative HR HPV result does not exclude the possibility of future cytol ogic HSIL or underlying CIN2-3 or cancer. This test is approved for cervical specimens by the US Food and Drug Administration. Results of this test should be interpreted in conjunction with the patient's Pap test results. Please refer to ASCCP current guidelines for the use of HPV DNA testing, result interpretation, and patient management. The performance of this test was verified by the Molecular Diagnostic Laboratory at [facility]. The lab is certified under the Clinical Laboratory Amendments of 1988 (CLIA 88) as qualified to perform high complexity clinical laboratory testing. This specimen has been analyzed by the [employer] Imaging System ([employer] an automated imaging and review system, which assists the laboratory in evaluating cells on ThinPrep Pap tests. Following automated imaging, selected sharma from every slide were reviewed by a campus recruiting coordinator and/or pathologist. CONVERTED FINAL REPORT PDF LINK TO* 10/03/2022 \\\\copathshare\\copath\\PDF \\[id number] Final Lab on 09/11/2022 Component Date Value Ref Range Status WBC 09/11/2022 4.6 4.4 - 11.3 x10E9/L Final nRBC 09/11/2022 0.0 0.0 - 0.0 /100 WBC Final RBC 09/11/2022 4.64 4.00 - 5.20 x10E12/L Final Hemoglobin 09/11/2022 14.2 12.0 - 16.0 g/dL Final Hematocrit 09/11/2022 45.5 36.0 - 46.0 % Final MCV 09/11/2022 98 80 - 100 fL Final MCHC 09/11/2022 31.2 (L) 32.0 - 36.0 g/dL Final Platelets 09/11/2022 225 150 - 450 x10E9/L Final RDW 09/11/2022 12.9 11.5 - 14.5 % Final Neutrophils % 09/11/2022 55.5 40.0 - 80.0 % Final Immature Granulocytes %, Automated 09/11/2022 0.2 0.0 - 0.9 % Final Immature Granulocyte Count (IG) includes promyelocytes, myelocytes and metamyelocytes but does not include bands. Percent differential counts (%) should be interpreted in the context of the absolute cell counts (cells/L). Lymphocytes % 09/11/2022 29.2 13.0 - 44.0 % Final Monocytes % 09/11/2022 10.7 2.0 - 10.0 % Final Eosinophils % 09/11/2022 3.5 0.0 - 6.0 % Final Basophils % 09/11/2022 0.9 0.0 - 2.0 % Final Neutrophils Absolute 09/11/2022 2.53 1.20 - 7.70 x10E9/L Final Lymphocytes Absolute 09/11/2022 1.33 1.20 - 4.80 x10E9/L Final Monocytes Absolute 09/11/2022 0.49 0.10 - 1.00 x10E9/L Final Eosinophils Absolute 09/11/2022 0.16 0.00 - 0.70 x10E9/L Final Basophils Absolute 09/11/2022 0.04 0.00 - 0.10 x10E9/L Final Glucose 09/11/2022 88 74 - 99 mg/dL Final Sodium 09/11/2022 141 136 - 145 mmol/L Final Potassium 09/11/2022 4.4 3.5 - 5.3 mmol/L Final Chloride 09/11/2022 106 98 - 107 mmol/L Final Bicarbonate 09/11/2022 29 21 - 32 mmol/L Final Anion Gap 09/11/2022 10 10 - 20 mmol/L Final Urea Nitrogen 09/11/2022 22 6 - 23 mg/dL Final Creatinine 09/11/2022 0.66 0.50 - 1.05 mg/dL Final GFR Female 09/11/2022 >90 >90 mL/min/1.73m2 Final CALCULATIONS OF ESTIMATED GFR ARE PERFORMED USING THE 2020 CKD-EPI STUDY REFIT EQUATION WITHOUT THE RACE VARIABLE FOR THE IDMS-TRACEABLE CREATININE METHODS. https://jasn.asnjournals.org/mian nt/early//ASN.2742868677 Calcium 09/11/2022 9.4 8.6 - 10.6 mg/dL Final Albumin 09/11/2022 4.3 3.4 - 5.0 g/dL Final Alkaline Phosphatase 09/11/2022 58 33 - 110 U/L Final Total Protein 09/11/2022 6.4 6.4 - 8.2 g/dL Final AST 09/11/2022 45 (H) 9 - 39 U/L Final Total Bilirubin 09/11/2022 0.4 0.0 - 1.2 mg/dL Final ALT (SGPT) 09/11/2022 99 (H) 7 - 45 U/L Final Patients treated with Sulfasalazine may generate falsely decreased results for ALT. Cholesterol 09/11/2022 214 (H) 0 - 199 mg/dL Final . AGE DESIRABLE BORDERLINE HIGH HIGH 0-19 Y 0 - 169 170 - 199 >/= 200 20-24 Y 0 - 189 190 - 224 >/= 225 >24 Y 0 - 199 200 - 239 >/= 240 All ranges are based on fasting samples. Specific therapeutic targets will vary based on patient-specific cardiac risk. . Pediatric guidelines reference:Pediatrics 2011, 128(S5). Adult guidelines reference: NCEP ATPIII Guidelines, TUSHAR 2001, 258:2486-97 . Venipuncture immediately after or during the administration of Metamizole may lead to falsely low results. Testing should be performed immediately prior to Metamizole dosing. HDL 09/11/2022 86.4 mg/dL Final . AGE VERY LOW LOW NORMAL HIGH 0-19 Y < 35 < 40 40-45 ---- 20-24 Y ---- < 40 >45 ---- >24 Y ---- < 40 40-60 >60 . Cholesterol/HDL Ratio 09/11/2022 2.5 Final REF VALUES DESIRABLE < 3.4 HIGH RISK > 5.0 LDL 09/11/2022 120 (H) 0 - 99 mg/dL Final . NEAR BORD AGE DESIRABLE OPTIMAL HIGH HIGH VERY HIGH 0-19 Y 0 - 109 --- 110-129 >/= 130 ---- 20-24 Y 0 - 119 --- 120-159 >/= 160 ---- >24 Y 0 - 99 100-129 130-159 160-189 >/=190 . VLDL 09/11/2022 8 0 - 40 mg/dL Final Triglycerides 09/11/2022 38 0 - 149 mg/dL Final . AGE DESIRABLE BORDERLINE HIGH HIGH VERY HIGH 0 D-90 D 19 - 174 ---- ---- ---- 91 D- 9 Y 0 - 74 75 - 99 >/= 100 ---- 10-19 Y 0 - 89 90 - 129 >/= 130 ---- 20-24 Y 0 - 114 115 - 149 >/= 150 ---- >24 Y 0 - 149 150 - 199 200- 499 >/= 500 . Venipuncture immediately after or during the administration of Metamizole may lead to falsely low results. Testing should be performed immediately prior to Metamizole dosing. TSH 09/11/2022 2.19 0.44 - 3.98 mIU/L Final TSH testing is performed using different testing methodology at [facility] than at other [facility]. Direct result comparisons should only be made within the same method. Vitamin D, 25-Hydroxy 09/11/2022 68 ng/mL Final . DEFICIENCY: < 20 NG/ML INSUFFICIENCY: 20-29 NG/ML SUFFICIENCY: 30-100 NG/ML THIS ASSAY ACCURATELY QUANTIFIES THE SUM OF VITAMIN D3, 25-HYDROXY AND VIT D2,25-HYDROXY. Current Outpatient Medications on File Prior to Visit Medication Sig Dispense Refill [DISCONTINUED] fluticasone (Flonase) 50 mcg/actuation nasal spray PLEASE SEE ATTACHED FOR DETAILED DIRECTIONS 48 mL 3 No current facility-administered medications on file prior to visit. No images are attached to the encounter. Assessment/Plan Problem List Items Addressed This Visit ICD-10-CM Diarrhea R19.7 This is resolved possible colitis noted from GI colonoscopy. Menopause - Primary Z78.0 Findings consistent with menopause. Hormone levels consistent with. Recommend vitamin D and calcium supplement. Recommend routine exercise that you already are doing Insomnia G47.00 May try Tylenol PM if troubles with insomnia Hyperlipidemia E78.5 Cholesterol patterns show significant elevation of HDL cholesterol which I feel is protective we are going to order CT scoring of the coronary documented in this encounter [facility] Work Phone: 08-16-2023 Instructions Maribel Jeffries DO - 08/16/2023 9:40 AM EDT Reviewed labs with you today. Findings are consistent with menopause. Cholesterol total is elevated but the HDL is significantly elevated that being separate from the order CT scoring of the coronary arteries. May try Tylenol PM for insomnia if the melatonin is not working if this persist please let me know. Recommend vitamin D and calcium supplement and continue to exercise regularly. documented in this encounter [facility] Work Phone: 08-16-2023 Note Addended by: TAYLER DAO on: 08/16/2023 10:36 AM Modules accepted: Orders [facility] Work Phone: 06-04-2023 Evaluation + Plan note Associated Problem(s): Diarrhea BW and stool studies ordered Referral to GI for colonoscopy [facility] Work Phone: 06-04-2023 Miscellaneous Notes Associated Problem(s): Diarrhea BW and stool studies ordered Referral to GI for colonoscopy documented in this encounter [facility] Work Phone: 06-04-2023 History of Present illness Narrative Subjective Chief Complaint: Diarrhea (X 3 weeks, states it is usually in the morning and in the evening . Has had 7 bowel movements already today, with gas. ). HPI Albino March is a 53 y.o. female who presents for Diarrhea (X 3 weeks, states it is usually in the morning and in the evening . Has had 7 bowel movements already today, with gas. ). Patient presents with 3 week history of diarrhea. She was on an antibiotic recently for a sinus infection. Her diarrhea started around the time of her antibiotic. She has been tracking what she is eating. Sometimes has 7 BM before the afternoon, Has not noticed a pattern with foods. Sometimes has diarrhea with just drinking water. She reports watery consistency stools. Denies blood in stool, Has not been using anything OTC Reports some diffuse abdominal discomfort. Report increased gas and foul smelling stools. Patient denies fever, chills, nausea, vomiting, chest pain, heart palpations, or shortness of breath. Review of Systems Constitutional: Negative for chills and fever. Respiratory: Negative for cough and shortness of breath. Cardiovascular: Negative for chest pain and palpitations. Gastrointestinal: Positive for abdominal pain and diarrhea. Negative for abdominal distention, nausea and vomiting. Objective BP 122/77 (BP Location: Left arm, Patient Position: Sitting, BP Cuff Size: Adult) Pulse 66 Resp 16 Wt 54.9 kg (121 lb) LMP (LMP Unknown) SpO2 98% BMI 23.24 kg/m BSA Body surface area is 1.53 meters squared. Physical Exam Constitutional: Appearance: Normal appearance. Cardiovascular: Rate and Rhythm: Normal rate and regular rhythm. Pulmonary: Effort: Pulmonary effort is normal. Breath sounds: Normal breath sounds. Abdominal: General: Abdomen is flat. There is no distension. Palpations: Abdomen is soft. There is no mass. Tenderness: There is abdominal tenderness. There is no guarding or rebound. Hernia: No hernia is present. Neurological: Mental Status: She is alert. Current Outpatient Medications on File Prior to Visit Medication Sig Dispense Refill fluticasone (Flonase) 50 mcg/actuation nasal spray PLEASE SEE ATTACHED FOR DETAILED DIRECTIONS 48 mL 3 No current facility-administered medications on file prior to visit. No images are attached to the encounter. Assessment/Plan Problem List Items Addressed This Visit ICD-10-CM Diarrhea - Primary R19.7 BW and stool studies ordered Referral to GI for colonoscopy Relevant Orders Lactoferrin, Fecal, Quantitative C. difficile, PCR Stool Culture, Test of Cure Ova/Para + Giardia/Cryptosporidium Antigen Referral to Gastroenterology CBC and Auto Differential Comprehensive metabolic panel Other Visit Diagnoses Codes Colon cancer screening Z12.11 Relevant Orders Referral to Gastroenterology documented in this encounter [facility] Work Phone: 06-04-2023 Instructions NOLAN England - 06/04/2023 11:40 AM EST Obtain blood work and stool studies as ordered We will call you with the results Referral being placed to GI documented in this encounter [facility] Work Phone: 05-02-2023 Evaluation + Plan note Associated Problem(s): Acute non-recurrent frontal sinusitis Antibiotic sent to pharmacy Advised patient to push fluids and start use of cool mist humidifier Patient to start using flonase nasal spray Patient to call if develop new or worsening symptoms [facility] Work Phone: 05-02-2023 Miscellaneous Notes Associated Problem(s): Acute non-recurrent frontal sinusitis Antibiotic sent to pharmacy Advised patient to push fluids and start use of cool mist humidifier Patient to start using flonase nasal spray Patient to call if develop new or worsening symptoms documented in this encounter [facility] Work Phone: 05-02-2023 History of Present illness Narrative Subjective Chief Complaint: sinus congestion (X 1 month ) and Earache. Earache Associated symptoms include rhinorrhea and a sore throat. Pertinent negatives include no abdominal pain, coughing, diarrhea or vomiting. Albino March is a 52 y.o. female who presents for sinus congestion (X 1 month ) and Earache. Her tested positive for COVID in the beginning of March. Patient also had symptoms at that time but she did not test for COVID. Her symptoms improved but she continues with nasal congestion and drainage. Started with left ear discomfort that started yesterday. Patient denies fever, chills, nausea, vomiting, diarrhea, chest pain, heart palpations, or shortness of breath. Review of Systems Constitutional: Positive for fatigue. Negative for chills and fever. HENT: Positive for congestion, ear pain, postnasal drip, rhinorrhea and sore throat. Respiratory: Negative for cough and shortness of breath. Cardiovascular: Negative for chest pain and palpitations. Gastrointestinal: Negative for abdominal pain, diarrhea, nausea and vomiting. Objective BP 101/64 (BP Location: Left arm, Patient Position: Sitting, BP Cuff Size: Adult) Pulse 76 Temp 36.8 C (98.2 F) Resp 16 Wt 56.7 kg (125 lb) LMP (LMP Unknown) SpO2 97% BMI 24.01 kg/m BSA Body surface area is 1.56 meters squared. Physical Exam Constitutional: Appearance: Normal appearance. HENT: Right Ear: Tympanic membrane normal. Left Ear: Tympanic membrane normal. Nose: Congestion and rhinorrhea present. Mouth/Throat: Mouth: Mucous membranes are moist. Eyes: Pupils: Pupils are equal, round, and reactive to light. Cardiovascular: Rate and Rhythm: Normal rate and regular rhythm. Pulmonary: Effort: Pulmonary effort is normal. Breath sounds: Normal breath sounds. Abdominal: General: Abdomen is flat. Palpations: Abdomen is soft. Neurological: Mental Status: She is alert. No current outpatient medications on file prior to visit. No current facility-administered medications on file prior to visit. No images are attached to the encounter. Assessment/Plan Problem List Items Addressed This Visit ICD-10-CM Acute non-recurrent frontal sinusitis - Primary J01.10 Antibiotic sent to pharmacy Advised patient to push fluids and start use of cool mist humidifier Patient to start using flonase nasal spray Patient to call if develop new or worsening symptoms Relevant Medications amoxicillin-pot clavulanate (Augmentin) 875-125 mg tablet fluticasone (Flonase) 50 mcg/actuation nasal spray documented in this encounter [facility] Work Phone: 05-02-2023 Instructions NOLAN England - 05/02/2023 2:20 PM EST Antibiotic sent to pharmacy Advised patient to push fluids and start use of cool mist humidifier Patient to start using flonase nasal spray Patient to call if develop new or worsening symptoms documented in this encounter [facility] Work Phone: 10-03-2022 Note 41 Date of Procedure: 10/03/2022 Pathologist: [facility], Cytology Date Reported: 10/12/2022 Date Received: 10/03/2022 Submitting Physician: ABIODUN STEPHENS D.O. FINAL CYTOLOGICAL INTERPRETATION A. THINPREP PAP CERVICAL: Specimen adequacy: SATISFACTORY FOR EVALUATION. Quality Indicator: Endocervical/transformation zone component is present. General Categorization: NEGATIVE FOR INTRAEPITHELIAL LESION OR MALIGNANCY. HIGH RISK HPV TEST RESULT: HPV GENOTYPE 16 NEGATIVE HPV GENOTYPE 18 NEGATIVE HPV GENOTYPE OTHER NEGATIVE Reference Range: Negative Slide(s) initially screened by a Container Finisher at [facility], [address] [place] [id number] QC review performed at [facility], [address] [place] [id number] Testing for high-risk (HR) type of human papilloma virus (HPV) is performed by the Mary bernarda HPV Test. The bernarda HPV Test is a qualitative polymerase chain reaction that amplifies DNA of HPV16, HPV18 and 12 other high-risk HPV types (31, 33, 35, 39, 45, 51, 52, 56, 58, 59, 66, and 68) associated with cervical cancer and its precursor lesions. A positive result indicates the presence of HPV DNA due to one or more of the 14 genotypes: 16, 18, 31, 33, 35, 39, 45, 51, 52, 56, 58, 59, 66, and 68. Negative results indicate HPV DNA concentrations are undetectable or below the pre-set threshold for detection. False negative results may be associated with unoptimized sampling. A negative HR HPV result does not exclude the possibility of future cytologic HSIL or underlying CIN2-3 or cancer. This test is approved for cervical specimens by the US Food and Drug Administration. Results of this test should be interpreted in conjunction with the patient?s Pap test results. Please refer to ASCCP current guidelines for the use of HPV DNA testing, result interpretation, and patient management. The performance of this test was verified by the Molecular Diagnostic Laboratory at [facility]. The lab is certified under the Clinical Laboratory Amendments of 1988 (CLIA 88) as qualified to perform high complexity clinical laboratory testing. This specimen has been analyzed by the [employer] MedicalPrep Imaging System ([employer] an automated imaging and review system, which assists the laboratory in evaluating cells on ThinPrep Pap tests. Following automated imaging, selected sharma from every slide were reviewed by a campus recruiting coordinator and/or pathologist. Electronically Signed Out By [facility], Cytology//JMD/LSM By the signature on this report, the individual or group listed as making the Final Interpretation/Diagnosis certifies that they have reviewed this case. Diagnostic interpretation performed at [facility] [address] [place] [id number] Educational Note: Cervical cytology is a screening procedure primarily for squamous cancers and precursors and has associated false-negative and false-positive results as evidenced by published data. Your patient?s test should be interpreted in this context, together with patient?s history and clinical findings. Regular sampling and follow-up of unexplained clinical signs and symptoms are recommended to minimize false negative results. Clinical History Date of Last Menstrual Period: {Not Entered} Other Clinical Conditions: COTEST HPV(Genotype) except for ASC-H, HSIL, Carcinoma - Include HPV Genotype testing EPIC Order Description: GYNECOLOGIC CYTOLOGY CONSULTATION Specimen Information: ThinPrep, CERVIX, SCREENING Clinical Diagnosis History: Z12.4-Screening for cervical cancer Perform HPV HR test? Cotest (if Negative, ASCUS, or LSIL) Include HPV Genotype? Yes Source of Specimen A: THINPREP PAP CERVICAL [facility] Department of Pathology [id number] Comment on above: Performed By: #### C #### [facility] Cytology [id number] [id number] 10-03-2022 History of Present illness Narrative Subjective Patient ID: Albino March is a 52 y.o. female who presents for No chief complaint on file.. HPI Patient presents for physical exam. Fam Hx Mom () living, Dad () living, Brother () living, Exercise walks ETOH denies Caffeine denies Tobacco denies Mammogram negative 2022 DEXA @ 66 Colonoscopy due 2022 Patient denies other complaints. Review of Systems Constitutional: Negative for activity change, appetite change, fatigue and fever. HENT: Negative for congestion. Respiratory: Negative for cough, choking and chest tightness. Cardiovascular: Negative for chest pain, palpitations and leg swelling. Musculoskeletal: Negative for arthralgias, back pain and gait problem. Skin: Negative for color change and pallor. Neurological: Negative for dizziness, facial asymmetry, light-headedness and headaches. Objective There were no vitals taken for this visit. BSA There is no height or weight on file to calculate BSA. Physical Exam Exam conducted with a teacher adult education present. Constitutional: General: She is not in acute distress. Appearance: Normal appearance. She is not toxic-appearing. HENT: Head: Normocephalic. Right Ear: Tympanic membrane, ear canal and external ear normal. Left Ear: Tympanic membrane, ear canal and external ear normal. Nose: Nose normal. Mouth/Throat: Pharynx: Oropharynx is clear. Eyes: Conjunctiva/sclera: Conjunctivae normal. Pupils: Pupils are equal, round, and reactive to light. Cardiovascular: Rate and Rhythm: Normal rate and regular rhythm. Pulses: Normal pulses. Heart sounds: Normal heart sounds. Pulmonary: Effort: No respiratory distress. Breath sounds: No wheezing, rhonchi or rales. Chest: Chest wall: No mass. Breasts: Right: No swelling or bleeding. Left: No swelling or bleeding. Abdominal: General: Bowel sounds are normal. There is no distension. Palpations: Abdomen is soft. Tenderness: There is no abdominal tenderness. Genitourinary: General: Normal vulva. Exam position: Lithotomy position. Pubic Area: No rash. Labia: Right: No rash. Left: No rash. Vagina: No signs of injury. No vaginal discharge. Cervix: No cervical motion tenderness or erythema. Adnexa: Right: No mass. Left: No mass. Musculoskeletal: General: No swelling or tenderness. Cervical back: No tenderness. Lymphadenopathy: Upper Body: Right upper body: No supraclavicular adenopathy. Left upper body: No supraclavicular adenopathy. Skin: Findings: No lesion or rash. Neurological: General: No focal deficit present. Mental Status: She is alert and oriented to person, place, and time. Mental status is at baseline. Gait: Gait normal. Psychiatric: Mood and Affect: Mood normal. Behavior: Behavior normal. Thought Content: Thought content normal. Judgment: Judgment normal. Lab on 09/11/2022 Component Date Value Ref Range Status WBC 09/11/2022 4.6 4.4 - 11.3 x10E9/L Final nRBC 09/11/2022 0.0 0.0 - 0.0 /100 WBC Final RBC 09/11/2022 4.64 4.00 - 5.20 x10E12/L Final Hemoglobin 09/11/2022 14.2 12.0 - 16.0 g/dL Final Hematocrit 09/11/2022 45.5 36.0 - 46.0 % Final MCV 09/11/2022 98 80 - 100 fL Final MCHC 09/11/2022 31.2 (L) 32.0 - 36.0 g/dL Final Platelets 09/11/2022 225 150 - 450 x10E9/L Final RDW 09/11/2022 12.9 11.5 - 14.5 % Final Neutrophils % 09/11/2022 55.5 40.0 - 80.0 % Final Immature Granulocytes %, Automated 09/11/2022 0.2 0.0 - 0.9 % Final Immature Granulocyte Count (IG) includes promyelocytes, myelocytes and metamyelocytes but does not include bands. Percent differential counts (%) should be interpreted in the context of the absolute cell counts (cells/L). Lymphocytes % 09/11/2022 29.2 13.0 - 44.0 % Final Monocytes % 09/11/2022 10.7 2.0 - 10.0 % Final Eosinophils % 09/11/2022 3.5 0.0 - 6.0 % Final Basophils % 09/11/2022 0.9 0.0 - 2.0 % Final Neutrophils Absolute 09/11/2022 2.53 1.20 - 7.70 x10E9/L Final Lymphocytes Absolute 09/11/2022 1.33 1.20 - 4.80 x10E9/L Final Monocytes Absolute 09/11/2022 0.49 0.10 - 1.00 x10E9/L Final Eosinophils Absolute 09/11/2022 0.16 0.00 - 0.70 x10E9/L Final Basophils Absolute 09/11/2022 0.04 0.00 - 0.10 x10E9/L Final Glucose 09/11/2022 88 74 - 99 mg/dL Final Sodium 09/11/2022 141 136 - 145 mmol/L Final Potassium 09/11/2022 4.4 3.5 - 5.3 mmol/L Final Chloride 09/11/2022 106 98 - 107 mmol/L Final Bicarbonate 09/11/2022 29 21 - 32 mmol/L Final Anion Gap 09/11/2022 10 10 - 20 mmol/L Final Urea Nitrogen 09/11/2022 22 6 - 23 mg/dL Final Creatinine 09/11/2022 0.66 0.50 - 1.05 mg/dL Final GFR Female 09/11/2022 >90 >90 mL/min/1.73m2 Final CALCULATIONS OF ESTIMATED GFR ARE PERFORMED USING THE 2020 CKD-EPI STUDY REFIT EQUATION WITHOUT THE RACE VARIABLE FOR THE IDMS-TRACEABLE CREATININE METHODS. https://jasn.asnjournals.org/mian nt/early//ASN.1874879069 Calcium 09/11/2022 9.4 8.6 - 10.6 mg/dL Final Albumin 09/11/2022 4.3 3.4 - 5.0 g/dL Final Alkaline Phosphatase 09/11/2022 58 33 - 110 U/L Final Total Protein 09/11/2022 6.4 6.4 - 8.2 g/dL Final AST 09/11/2022 45 (H) 9 - 39 U/L Final Total Bilirubin 09/11/2022 0.4 0.0 - 1.2 mg/dL Final ALT (SGPT) 09/11/2022 99 (H) 7 - 45 U/L Final Patients treated with Sulfasalazine may generate falsely decreased results for ALT. Cholesterol 09/11/2022 214 (H) 0 - 199 mg/dL Final . AGE DESIRABLE BORDERLINE HIGH HIGH 0-19 Y 0 - 169 170 - 199 >/= 200 20-24 Y 0 - 189 190 - 224 >/= 225 >24 Y 0 - 199 200 - 239 >/= 240 All ranges are based on fasting samples. Specific therapeutic targets will vary based on patient-specific cardiac risk. . Pediatric guidelines reference:Pediatrics 2011, 128(S5). Adult guidelines reference: NCEP ATPIII Guidelines, TUSHAR 2001, 258:2486-97 . Venipuncture immediately after or during the administration of Metamizole may lead to falsely low results. Testing should be performed immediately prior to Metamizole dosing. HDL 09/11/2022 86.4 mg/dL Final . AGE VERY LOW LOW NORMAL HIGH 0-19 Y < 35 < 40 40-45 ---- 20-24 Y ---- < 40 >45 ---- >24 Y ---- < 40 40-60 >60 . Cholesterol/HDL Ratio 09/11/2022 2.5 Final REF VALUES DESIRABLE < 3.4 HIGH RISK > 5.0 LDL 09/11/2022 120 (H) 0 - 99 mg/dL Final . NEAR BORD AGE DESIRABLE OPTIMAL HIGH HIGH VERY HIGH 0-19 Y 0 - 109 --- 110-129 >/= 130 ---- 20-24 Y 0 - 119 --- 120-159 >/= 160 ---- >24 Y 0 - 99 100-129 130-159 160-189 >/=190 . VLDL 09/11/2022 8 0 - 40 mg/dL Final Triglycerides 09/11/2022 38 0 - 149 mg/dL Final . AGE DESIRABLE BORDERLINE HIGH HIGH VERY HIGH 0 D-90 D 19 - 174 ---- ---- ---- 91 D- 9 Y 0 - 74 75 - 99 >/= 100 ---- 10-19 Y 0 - 89 90 - 129 >/= 130 ---- 20-24 Y 0 - 114 115 - 149 >/= 150 ---- >24 Y 0 - 149 150 - 199 200- 499 >/= 500 . Venipuncture immediately after or during the administration of Metamizole may lead to falsely low results. Testing should be performed immediately prior to Metamizole dosing. TSH 09/11/2022 2.19 0.44 - 3.98 mIU/L Final TSH testing is performed using different testing methodology at [facility] than at other [facility]. Direct result comparisons should only be made within the same method. Vitamin D, 25-Hydroxy 09/11/2022 68 ng/mL Final . DEFICIENCY: < 20 NG/ML INSUFFICIENCY: 20-29 NG/ML SUFFICIENCY: 30-100 NG/ML THIS ASSAY ACCURATELY QUANTIFIES THE SUM OF VITAMIN D3, 25-HYDROXY AND VIT D2,25-HYDROXY. No current outpatient medications on file prior to visit. No current facility-administered medications on file prior to visit. No images are attached to the encounter. Assessment/Plan There are no diagnoses linked to this encounter. 1. Patient's blood work discussed at this office visit 2. Patient's LDL goal less than 130 current LDL 120 3. Patient's liver enzymes are elevated, check ultrasound liver and hepatitis panel 4. Mammogram negative 2022 5. DEXA @ 66 6. Colonoscopy due 2022 7. Patient to call if questions or concerns documented in this encounter [facility] Work Phone: 08-18-2022 Evaluation + Plan note Associated Problem(s): Breast pain, right Breast pain and nipple discharge of right breast Plan to obtain bilateral mammogram and diagnostic ultrasound of right breast [facility] Work Phone: 08-18-2022 Miscellaneous Notes Associated Problem(s): Breast pain, right Breast pain and nipple discharge of right breast Plan to obtain bilateral mammogram and diagnostic ultrasound of right breast documented in this encounter 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 HPI Albino March is a 52 y.o. 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 Patient presents with right breast tenderness and nipple discharge that she first noticed 5 days ago. She reports being unable to apply any pressure to her right breast without severe pain. She has only noticed the discharge from the right nipple x1 episode. She describes the discharge as a scant amount and greenish. Patient denies any redness or swelling of her right breast. She reports that the tenderness has slightly decreased but continues. She reports that her last mammogram was over 3 years ago. Patient reports that the majority of her tenderness is at 9:00 2 cm from her nipple. She denies fever, chills, nausea, vomiting, diarrhea, chest pain, shortness of breath. Review of Systems Constitutional: Negative for chills and fatigue. Respiratory: Negative for shortness of breath. Cardiovascular: Negative for chest pain and palpitations. Gastrointestinal: Negative for diarrhea and nausea. Skin: Right breast tenderness and nipple discharge Objective BP 100/60 Pulse 72 Resp 18 Ht 1.524 m (5') Wt 55.4 kg (122 lb 3.2 oz) SpO2 98% BMI 23.87 kg/m BSA Body surface area is 1.53 meters squared. Physical Exam Constitutional: Appearance: Normal appearance. Chest: Breasts: Right: Mass and tenderness present. No swelling, bleeding, inverted nipple, nipple discharge or skin change. Left: No swelling, bleeding, inverted nipple, nipple discharge, skin change or tenderness. Comments: Lump noted at 6:00 and 9:00 o'clock of right breast and a meters from nipple No nipple discharge Lymphadenopathy: Upper Body: Right upper body: No supraclavicular, axillary or pectoral adenopathy. Left upper body: No supraclavicular, axillary or pectoral adenopathy. Neurological: Mental Status: She is alert. No visits with results within 1 Year(s) from this visit. Latest known visit with results is: [facility] Encounter on 02/23/2021 Component Date Value Ref Range Status WBC 02/23/2021 4.7 4.4 - 11.3 x10E9/L Final nRBC 02/23/2021 0.0 0.0 - 0.0 /100 WBC Final RBC 02/23/2021 4.37 4.00 - 5.20 x10E12/L Final Hemoglobin 02/23/2021 13.2 12.0 - 16.0 g/dL Final Hematocrit 02/23/2021 43.0 36.0 - 46.0 % Final MCV 02/23/2021 98 80 - 100 fL Final MCHC 02/23/2021 30.7 (L) 32.0 - 36.0 g/dL Final Platelets 02/23/2021 232 150 - 450 x10E9/L Final RDW 02/23/2021 12.6 11.5 - 14.5 % Final Neutrophils % 02/23/2021 58.6 40.0 - 80.0 % Final Immature Granulocytes %, Automated 02/23/2021 0.2 0.0 - 0.9 % Final Comment: Immature Granulocyte Count (IG) includes promyelocytes, myelocytes and metamyelocytes but does not include bands. Percent differential counts (%) should be interpreted in the context of the absolute cell counts (cells/L). Lymphocytes % 02/23/2021 28.1 13.0 - 44.0 % Final Monocytes % 02/23/2021 9.3 2.0 - 10.0 % Final Eosinophils % 02/23/2021 2.5 0.0 - 6.0 % Final Basophils % 02/23/2021 1.3 0.0 - 2.0 % Final Neutrophils Absolute 02/23/2021 2.78 1.20 - 7.70 x10E9/L Final Lymphocytes Absolute 02/23/2021 1.33 1.20 - 4.80 x10E9/L Final Monocytes Absolute 02/23/2021 0.44 0.10 - 1.00 x10E9/L Final Eosinophils Absolute 02/23/2021 0.12 0.00 - 0.70 x10E9/L Final Basophils Absolute 02/23/2021 0.06 0.00 - 0.10 x10E9/L Final Glucose 02/23/2021 90 74 - 99 mg/dL Final Sodium 02/23/2021 142 136 - 145 mmol/L Final Potassium 02/23/2021 4.2 3.5 - 5.3 mmol/L Final Chloride 02/23/2021 107 98 - 107 mmol/L Final Bicarbonate 02/23/2021 27 21 - 32 mmol/L Final Anion Gap 02/23/2021 12 10 - 20 mmol/L Final Urea Nitrogen 02/23/2021 25 (H) 6 - 23 mg/dL Final Creatinine 02/23/2021 0.75 0.50 - 1.05 mg/dL Final GLOMERULAR FILTRATION RATE-NON AFR* 02/23/2021 >60 >60 mL/min/1.73m2 Final GLOMERULAR FILTRATION RATE-* 02/23/2021 >60 >60 mL/min/1.73m2 Final Comment: CALCULATIONS OF ESTIMATED GFR ARE PERFORMED USING THE MDRD STUDY EQUATION FOR THE IDMS-TRACEABLE CREATININE METHODS. CLIN CHEM 2007;53:766-72 Calcium 02/23/2021 9.8 8.6 - 10.6 mg/dL Final Albumin 02/23/2021 4.6 3.4 - 5.0 g/dL Final Alkaline Phosphatase 02/23/2021 44 33 - 110 U/L Final Total Protein 02/23/2021 6.9 6.4 - 8.2 g/dL Final AST 02/23/2021 18 9 - 39 U/L Final Total Bilirubin 02/23/2021 0.4 0.0 - 1.2 mg/dL Final ALT (SGPT) 02/23/2021 17 7 - 45 U/L Final Comment: Patients treated with Sulfasalazine may generate falsely decreased results for ALT. No current outpatient medications on file prior to visit. No current facility-administered medications on file prior to visit. No images are attached to the encounter. Assessment/Plan Problem List Items Addressed This Visit Other Breast pain, right Breast pain and nipple discharge of right breast Plan to obtain bilateral mammogram and diagnostic ultrasound of right breast Relevant Orders BI US breast complete right Encounter for screening mammogram for malignant neoplasm of breast Relevant Orders BI mammo bilateral screening tomosynthesis documented in this encounter [facility] Work Phone: 08-18-2022 Instructions NOLAN England - 08/18/2022 8:20 AM EDT Obtain breast mammogram and ultrasound as ordered Recommend you schedule a physical exam with pap smear Please have blood work done prior to your appointment Please call if you have any further questions or concerns documented in this encounter [facility] Work Phone: Discharge summary Note Date/Time February 01, 2025 1:34am [facility] Medical Records Department [address] [place] [id number] Emergency Department Summary 02/01/25 MR#: [id number] Acct: [id number] Name: ALBINO MARCH Rep #:[id number] 06 : 1970 54 From: Jose Juan Beltran MD PCP: Dr. Maribel Jeffries MD Status:REG ER Location: ED HPI History of Present Illness Chief Complaint: Dizziness Informant: patient and spouse/S.O. Narrative Narrative: Patient is a 54-year-old female presenting with worsening vertigo, neck pain, and headache. Patient is accompanied by her who is supplementing history. - Reports vertigo and vision changes for 3 weeks. - Underwent Tracy maneuver yesterday by Dr. Nash, which provided temporary relief. - Experienced a migraine and emesis prior to the maneuver. - Symptoms worsened today after performing stretches with a lacrosse ball under her neck; now unable to ambulate without dizziness. - Describes current vertigo as more severe than previous episodes; associated with intense neck pain at the base of the skull. - Denies any known trauma or head injuries. - Reports bilateral ear discomfort and difficulty turning her head without inducing dizziness and fear of emesis. - Has been managing tight neck, trapezius, and shoulder muscles with heat, ice, and massages without relief. - attempted Tracy maneuver at home today without improvement (performed incorrectly after we discussed details). - Currently experiencing a headache; has a history of migraines. - Taking progesterone, magnesium, and L-theanine nightly. PFSH PFSH Medical History no medical history no medical history Home Medications ?Medication ?Instructions ?Recorded ?Last Taken ?Type diazepam 2 mg tablet (Valium) 2 mg PO TID PRN dizzines s #10 tabs 02/01/25 Unknown Rx Allergy/AdvReac Type Severity Reaction Status Date / Time No Known Allergies Allergy Verified 01/31/25 22:59 Social History Smoking Status: Never smoker ROS ROS ED Constitutional Constitutional ED: Denies chills or fever(s) Eyes Eyes: Denies change in vision or diplopia ENT ENT ED: Reports ear pain bilateral and vertigo; Denies rhinorrhea, sore throat or tinnitus Cardiovascular Cardiovascular: Denies chest pain or palpitations Respiratory/Chest Respiratory/Chest: Denies cough or dyspnea Gastrointestinal Gastrointestinal: Reports nausea and vomiting; Denies abdominal pain or diarrhea Genitourinary Genitourinary ED: Denies dysuria or hematuria Musculoskeletal Musculoskeletal: Reports neck pain; Denies back pain Integumentary Denies abscess or rash Neurologic Neurologic: Reports abnormal gait, disequilibrium, headache(s) and vertigo; Denies abnormal speech, behavior changes, focal weakness, frequent falls, paresthesias or weakness Psychiatric Psychiatric: Denies anxiety or suicidal thoughts EXAM Physical Exam Const Vital Signs: 01/31/25 22:59 Temperature 97.4 F L Temperature Source Temporal Pulse Rate 58 L Respiratory Rate 18 Blood Pressure 126/71 H Blood Pressure Mean 89 Pulse Ox 99 Oxygen Delivery Method Room Air Positive well nourished and well developed General Appearance ED: well developed and NAD HEENT Reports TM's clear and moist mucous membranes normocephalic and atraumatic Tympanic Membrane ED: Yes TM's clear Eyes PERRL and EOMs intact bilaterally Eyes Narrative: No direction changing nystagmus. Negative skew test. Abnormal jolt test with brief catch-up saccade. Neck full ROM and supple Neck Narrative: Some tenderness throughout the bilateral posterior neck paraspinal musculature, including trapezius musculature, no tenderness in the sternocleidomastoid/carotid artery areas. No JVD. Resp normal respiratory effort and clear to auscultation bilaterally Cardio regular rate, regular rhythm and no murmurs GI non-tender and non-distended Auscultation: normoactive bowel sounds Palpation: soft Back/Spine no CVA tenderness General Back: other FROM Extremity normal to inspection General Extremety ED: Negative for edema, pulses abnormal or tenderness General Extremity: Negative for edema or pulses abnormal Neuro oriented x3, CN's II-XII intact bilaterally and no sensory deficits noted Neuro Narrative: Normal speech no aphasia or dysarthria. No dysmetria, normal [id number] bilaterally. Sensorium / Orientation: awake and alert Motor Exam: strength 5/5 throughout Psych mental status grossly normal Skin no rashes or lesions noted and no wounds MDM MDM MDM Narrative Medical decision making narrative: Patient's HINTS exam as well as the history are consistent with a peripheral etiology of vertigo. She was interested in the Tracy maneuver. I offered her Zofran and oral Valium first, which were given. 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 By that time, she stated she felt much better with the medications and no longer wanted the maneuver. She preferred to leave with a prescription for Valium, which I was happy to provide. She is due to follow up with ENT after the weekend. We discussed the unlikelihood of a vascular event or stroke based on the historyand exam. She does not have any neck pain or tenderness in the carotid areas, and her symptoms appear primarily posterior, which I believe are more related toher headache and history of migraines. Therefore, we discussed imaging and the reasons for it. I also offered her CT angiography of the head and neck to rule out a rare dissection, although I do not believe this is likely, as she experiences clear, severe reproduction of symptoms on the right side and no symptoms when the Tracy maneuver was performed on the left, according to the patient. She agrees with this assessment and declines the CT. She will follow upwith otolaryngology as an outpatient. Discharge Plan Triage Chief Complaint: Dizziness ED Provider: Jose Juan Beltran Dx/Rx/DC Orders Clinical Impression: Benign paroxysmal positional vertigo of right ear Instructions: ED BPV Vertigo Prescriptions: New diazepam [Valium] 2 mg tablet 2 mg PO TID PRN (Reason: dizziness) Qty: 10 0RF Primary Care Provider: Maribel Jeffries Referrals: Dylan Nash MD [Med Staff - Active Staff, Ear Nose Throat (ENT)] - As soon as possible Print Language: Amharic Disposition Disposition: Home, Self Care What to do if you have Problems For any increased pain, shortness of breath, bleeding, nausea or vomiting, chestpain, or any unexpected problems, contact your Primary Care Provider. Call [facility] ([phone]) or report to the closest Emergency Room. Call 911 if necessary. 02/01/25 0134 <Electronically signed by Jose Juan Beltran MD> Cosigner Signature (if applicable): CC: Dr. Dylan Nash MD; Dr. Maribel Jeffries MD ~ Signed [facility] Work Phone: Evaluation note* Diagnosis Breast pain, right Encounter for screening mammogram for malignant neoplasm of breast documented in this encounter [facility] Work Phone: Evaluation note* Diagnosis Healthcare maintenance- Primary Screening for cervical cancer Screening for malignant neoplasm of the cervix Elevated liver enzymes Other nonspecific abnormal serum enzyme levels documented in this encounter [facility] Work Phone: Evaluation note* Diagnosis Acute non-recurrent frontal sinusitis- Primary documented in this encounter [facility] Work Phone: Evaluation note* Diagnosis Diarrhea, unspecified type- Primary Colon cancer screening Special screening for malignant neoplasms, colon Diarrhea, unspecified type documented in this encounter [facility] Work Phone: Evaluation note* Diagnosis Menopause- Primary Symptomatic menopausal or female climacteric states Diarrhea, unspecified type Insomnia, unspecified type Hyperlipidemia, unspecified hyperlipidemia type Routine adult health maintenance documented in this encounter [facility] Work Phone: Evalubjiuh note* Diagnosis Collagenous colitis- Primary Other and unspecified noninfectious gastroenteritis and colitis [facility] Diarrhea, unspecified type- Primary Colon cancer screening Special screening for malignant neoplasms, colon Menopause- Primary Symptomatic menopausal or female climacteric states Diarrhea, unspecified type Insomnia, unspecified type Hyperlipidemia, unspecified hyperlipidemia type Routine adult health maintenance Acute UTI- Primary Urinary tract infection, site not specified Hematuria, unspecified type Menopause Symptomatic menopausal or female climacteric states Acute UTI Urinary tract infection, site not specified Hematuria, unspecified type documented in this encounter [facility] Work Phone: Evmailspic note* Diagnosis Diarrhea, unspecified type- Primary Colon cancer screening Special screening for malignant neoplasms, colon Menopause- Primary Symptomatic menopausal or female climacteric states Diarrhea, unspecified type Insomnia, unspecified type Hyperlipidemia, unspecified hyperlipidemia type Routine adult health maintenance Acute UTI Urinary tract infection, site not specified Hematuria, unspecified type documented in this encounter [facility] Work Phone: Evaluehfqt note* Diagnosis Menopause- Primary Symptomatic menopausal or female climacteric states Diarrhea, unspecified type Insomnia, unspecified type Hyperlipidemia, unspecified hyperlipidemia type Routine adult health maintenance Healthcare maintenance- Primary Familial hypercholesterolemia Allergic rhinitis, unspecified seasonality, unspecified trigger Menopause Symptomatic menopausal or female climacteric states Encounter for screening mammogram for malignant neoplasm of breast documented in this encounter [facility] Work Phone: Evaluation noteNo assessment information available [facility] Work Phone: History of Present illness Narrative* Frequency of urination. Patient with history of renal lithiasis. Patient's had troubles with frequency of urination. Pain in the left lower pelvis area. * No fever no chills. No night sweats. * Patient was treated for UTI start on ciprofloxacin. Symptoms have continued. No significant flank pain or discomfort. Getting some radiation of pain into the left lower abdomen. No nausea no vomiting. No change in stool habits no blood in the stool or black tarry stool. * No fever or chills. [facility] Work Phone: History of Present illness Narrative* Frequency of urination. Patient with history of renal lithiasis. Patient's had troubles with frequency of urination. Pain in the left lower pelvis area. * No fever no chills. No night sweats. * Patient was treated for UTI start on ciprofloxacin. Symptoms have continued. No significant flank pain or discomfort. Getting some radiation of pain into the left lower abdomen. No nausea no vomiting. No change in stool habits no blood in the stool or black tarry stool. * No fever or chills. [facility] Work Phone: Instructions* Name Dates Details Instructions not documented [facility] Work Phone: Reason for referral (narrative)* Consultation (Routine) - Authorized Specialty Diagnoses / Procedures Referred By Martha javier Referred To Contact Gastroenterology Diagnoses Diarrhea, unspecified type Colon cancer screening Carmina Matthew APRN-CNP [address] [facility] [place] [address] Mario Aleman, DO [address] [place] [address] Referral ID Status Reason Start Date Expiration Date Visits Requested Visits Authorized [id number] Authorized Specialty Services Required 06/04/2023 06/03/2024 1 1 [facility] Work Phone: Reason for referral (narrative)No reason for [facility] Reason for visit Narrative* Imaging (Emergency) - Pending Review Specialty Diagnoses / Procedures Referred By Martha javier Referred To Contact Radiology Diagnoses Acute UTI Hematuria, unspecified type Procedures CT abdomen pelvis wo IV contrast Abiodun Stephens DO [address] [facility] [place] [address] Phone: tel: fax: [facility] [address] [place] [address] Phone: tel: fax: Referral ID Status Reason Start Date Expiration Date Visits Requested Visits Authorized [id number] Pending Review Perform Procedure 4 03/17/[address] [facility] Work Phone: Family History No Family History Records FoundUnknown Family Member Name Dates Details No pertinent family history: Multiple Family Members(V49.89, Z78.9) Status:Active Unknown Family Member Name Dates Details No pertinent family history: Multiple Family Members(V49.89, Z78.9) Status:Active Unknown Family Member Name Dates Details No pertinent family history: Multiple Family Members(V49.89, Z78.9) Status:Active Unknown Family Member Name Dates Details No pertinent family history: Multiple Family Members(V49.89, Z78.9) Status:Active Unknown Family Member Name Dates Details No pertinent family history: Multiple Family Members(V49.89, Z78.9) Status:Active Unknown Family Member Name Dates Details No pertinent family history: Multiple Family Members(V49.89, Z78.9) Status:Active Unknown Family Member Name Dates Details No pertinent family history: Multiple Family Members(V49.89, Z78.9) Status:Active Unknown Family Member Name Dates Details No pertinent family history: Multiple Family Members(V49.89, Z78.9) Status:Active Unknown Family Member Name Dates Details No pertinent family history: Multiple Family Members(V49.89, Z78.9) Status:Active Unknown Family Member Name Dates Details No pertinent family history( V49.89, Z78.9) Comments:Multiple Family Mem bers Status:Active Chief Complaint abdominal pressure, pain around the abdomen and back.abdominal pressure, pain around the abdomen and back. Summary Purpose Advance Directives No Advanced Directives Records Found Advance Directive Response Recorded Date/ Time Do you have a Healthcare Power of E Commerce Merchant? Yes January 31, 2025 11:10pm Name of Medical Power of E Commerce Merchant --phuong January 31, 2025 11:10pm Reason for Referral Specialty Diagnoses / Procedures Referred By Contac t Referred To Contact Radiology Diagnoses Breast pain, right Procedures BI US breast complete right Carmina Matthew, PATENT LAW SPECIALIST-TOOTH POLISHER [address] [facility] [place] [address] Referral ID Status Reason Start Date Expiration Date Visits Requested Visits Authorized [id number] Authorized Perform Procedure 08/18/2022 02/14/2023 1 1 Specialty Diagnoses / Procedures Referred By Contac t Referred To Contact Radiology Diagnoses Encounter for screening mammogram for malignant neoplasm of breast Procedures BI mammo bilateral screening tomosynthesis Carmina Matthew, PATENT LAW SPECIALIST-TOOTH POLISHER [address] [facility] [place] [address] Referral ID Status Reason Start Date Expiration Date Visits Requested Visits Authorized [id number] Authorized Perform Procedure 08/18/2022 02/14/2023 1 1 Specialty Diagnoses / Procedures Referred By Contac t Referred To Contact Radiology Diagnoses Elevated liver enzymes Procedures US abdomen limited liver Abiodun Stephens, DO [address] [facility] [place] [address] Referral ID Status Reason Start Date Expiration Date Visits Requested Visits Authorized [id number] Authorized Perform Procedure 10/03/2022 04/01/2023 1 1 Specialty Diagnoses / Procedures Referred By Contac t Referred To Contact Radiology Diagnoses Routine adult health maintenance Procedures CT cardiac scoring wo IV contrast Maribel Jeffries, DO [address] [facility] [place] [address] Referral ID Status Reason Start Date Expiration Date Visits Requested Visits Authorized [id number] Pending Review Perform Procedure 08/16/2023 08/15/2024 1 1 Chief Complaint and Reason for Visit Chief Complaint Admit Date Vertigo January 31, 2025 10 :58pm Additional Source Comments INFORMATION SOURCE (unrecogn ized section and content) DATE CREATED AUTHOR 02/24/2021 [employer] DATE CREATED AUTHOR AUTHOR'S ORGANIZ ATION 11/29/2022 [facility] DATE CREATED AUTHOR AUTHOR'S ORGANIZ ATION 12/09/2022 [facility] DATE CREATED AUTHOR AUTHOR'S ORGANIZ ATION 11/05/2023 Mansoor England [facility] DATE CREATED AUTHOR AUTHOR'S ORGANIZ ATION 02/06/2024 [facility] DATE CREATED AUTHOR AUTHOR'S ORGANIZ ATION 03/24/2024 [facility] DATE CREATED AUTHOR AUTHOR'S ORGANIZ ATION 04/16/2024 [facility] DATE CREATED AUTHOR AUTHOR'S ORGANIZ ATION 08/08/2024 [facility] DATE CREATED AUTHOR AUTHOR'S ORGANIZ ATION 08/14/2024 [facility] DATE CREATED AUTHOR AUTHOR'S ORGANIZ ATION 08/16/2024 [facility] DATE CREATED AUTHOR AUTHOR'S ORGANIZ ATION 02/13/2025 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 Has had 7 bowel movements already today, with gas. Reason Comments discuss hormone issues Reason Comments New Patient collagenous colitis Reason Comments Possible uti Urinary burning, urg ency, frequency, low back pain. X last Sunday. Reason Comments Radiology Mammogram Care Teams (unrecognized sec tion and content) Tunnel Inspector Relationship Specialty Start Date End Date Maribel Jeffries DO [address] [facility] [place] [address] PCP - General 05/14/14 Tunnel Inspector Relationship Specialty Start Date End Date Maribel Jeffries DO [address] [facility] [place] [address] PCP - General 05/14/14 Abiodun Stephens DO [address] [facility] [place] [address] PCP - [place] [facility] PCP 11/28/22 Tunnel Inspector Relationship Specialty Start Date End Date Maribel Jeffries DO [address] [facility] [place] [address] PCP - General 05/14/14 Abiodun Stephens DO [address] [facility] [place] [address] PCP - [place] [facility] PCP 11/28/22 Tunnel Inspector Relationship Specialty Start Date End Date Maribel Jeffries DO [address] [facility] [place] [address] PCP - General 05/14/14 Abiodun Stephens DO [address] [facility] [place] [address] PCP - [place] [facility] PCP 11/28/22 Tunnel Inspector Relationship Specialty Start Date End Date Maribel Jeffries MD PCP - General Family Medicine 03/24/16 Tunnel Inspector Relationship Specialty Start Date End Date Maribel Jeffries DO [address] [facility] [place] [address] PCP - General 05/14/14 Tunnel Inspector Relationship Specialty Start Date End Date Maribel Jeffries DO [address] [facility] [place] [address] PCP - General 05/14/14 Tunnel Inspector Relationship Specialty Start Date End Date Angelo Abiodundemetria Jacobs DO [address] [facility] [place] [address] PCP - General Family Medicine 06/30/24 Tunnel Inspector Relationship Specialty Start Date End Date Maribel Jeffries MD PCP - General Family Medicine 03/24/16 Team Status: Active Member Role/Relationship Status Dates Dr. Maribel Jeffries MD Primary care physician Active Team Status: Inactive Member Role/Relationship Status Dates Dr. Jose Juan Beltran MD Emergency Depart ment Physician Active Start: January 31, 2025 End: February 01, 2025 Dr. Maribel Jeffries MD Primary care physician Active Start: January 31, 2025 End: February 01, 2025 Source Comments (unrecognize d section and content) In the event this informatio n is protected by the Federal Confidentiality of Alcohol and Drug Abuse Patient Records regulations: The Federal rules restrict any use of the information to criminally investigate or prosecute any alcohol or drug abuse patient.[facility] the event this information is protected by the Federal Confidentiality of Alcohol and Drug Abuse Patient Records regulations: The Federal rules restrict any use of the information to criminally investigate or prosecute any alcohol or drug abuse patient.[facility] the event this information is protected by the Federal Confidentiality of Alcohol and Drug Abuse Patient Records regulations: The Federal rules restrict any use of the information to criminally investigate or prosecute any alcohol or drug abuse patient.[facility] Goals (unrecognized section and content) Goals may be documented in a n alternate section FOR RECORDS PERTAINING TO PATIENTS WHO ARE OR HAVE BEEN ENROLLED IN A CHEMICAL DEPENDENCY/SUBSTANCEABUSE PROGRAM, SOME INFORMATION MAY BE OMITTED. This clinical summary was aggregated from multiple sources. Caution should be exercised in using it in the provision of clinical care. This summary normalizes information from multiple sources, and as a consequence, information in this document may materially change the coding, format and clinical context of patient data. In addition, data may be omitted in some cases. CLINICAL DECISIONS SHOULD BE BASED ON THE PRIMARY CLINICAL RECORDS. [facility] [employer] [facility] provides no warranty or guarantee of the accuracy or completeness of information in this document.
== END | disposition home or self-care (01) ==
LOC: MRI 10:21
PROVIDERS: PCP Family Medicine; Referring Provider Otolaryngology; Visit Provider Otolaryngology
DX: R42 Dizziness and giddiness (principal)

== ENCOUNTER → 2025-02-24 | Outpatient (CLI) | payer OTHER, SELFPAY ==
--- NOTE | 2025-02-24 15:02 | RAD_ITS ---
PROCEDURE: RAD/Cerv Spine 2 or 3 Views
[2025-02-24 15:56] LABS: Cholesterol 212 mg/dL (<=200); Low Density Lipoprotein Calc. 113 mg/dL; Triglycerides 56 mg/dL; Very Low Density Lipoprotein 11 mg/dL (5-40); cholesterol:hdl ratio screen 2.37
[2025-02-24 15:58] LABS: Hepatitis C Antibody Nonreactive (Nonreactive)
== END | disposition home or self-care (01) ==
LOC: POLAB3 14:52 → RAD 15:02
PROVIDERS: PCP Family Medicine Geriatric Medicine; Referring Provider Family Medicine Geriatric Medicine; Visit Provider Family Medicine Geriatric Medicine
DX: M54.2 Cervicalgia (principal); M25.519 Pain in unspecified shoulder; R53.83 Other fatigue; Z12.39 Encounter for other screening for malignant neoplasm of breast
CPT/HCPCS: 36415; 72040; 80061; 84443; 86803